=== PATIENT | female | born 1950 | race Caucasian/White ===

== ENCOUNTER 2019-12-14 11:00 | Outpatient (RCR) | payer MEDICARE, SELFPAY ==
--- NOTE | 2019-12-14 12:47 | MHC.PT.DC ---
[facility] [place] Office [place] Office [place] Office [address] 140 [facility] [phone] F: [phone] F: [phone] F: [phone] F: [phone] Physical Therapy Discharge Report Diagnosis: M22.2x1 patellofemoral pain syndrome of right knee Z48.89 aftercare following surgery for injury and trauma Date of Surgery: 10/12/2019 Date of Evaluation: 11/08/19 Date of Discharge: 12/14/19 Treatments to Date: 10 Cancellations to Date: 0 No Shows to Date: 0 Discharge Status: Achieved Goals Improved Function Independent with HEP Discharge Summary: The patient has overall restored her knee AROM to full. She has reached all goals established at the initial evaluation. She is independent and compliant with her home exercise program. For these reasons, she is discharged from this physical therapy plan of care to her home exercise program. Electronically signed by: Liseth Pedraza PT, DPT Please sign and return to therapist. Thank you for your referral.
== END 2019-12-14 12:47 | disposition other institution (70) ==
LOC: HO.PT 11:00
PROVIDERS: PCP Pediatrics; Visit Provider Orthopaedic Surgery
DX: M22.2X1 Patellofemoral disorders, right knee (principal)
CPT/HCPCS: 97110; 97112; 97530

== ENCOUNTER 2020-02-12 08:24 | Day surgery (SDC) | payer OTHER, SELFPAY ==
--- NOTE | 2020-02-09 09:44 | HO.ANESPROP2 ---
Documented by User: Isabelle Velázquez 02/12/20 10:53 HPI - Anesthesia Eval Consult details Narrative: 70yo F for Colonoscopy PMFSH Past Medical History Medical History Anxiety Asthma Depression History of diverticulitis HTN (hypertension) Osteopenia Surgical History Surgical History (Updated 02/12/20 @ 08:48 by Bre Conner, RN) History of carpal tunnel release of both wrists History of colon resection Hx of cataract extraction Hx of colonoscopy Hx of right knee surgery S/P right knee arthroscopy Social History Social History Smoking Status: Never smoker Use of substances other than those prescribed or required for medical reasons: No Advance Directives: No Advance Directives Information Provided: Yes Meds Allergies Allergy/AdvReac Type Severity Reaction Status Date / Time lisinopril [LISINOPRIL] Allergy Severe ANGIOEDEMA, Verified 02/12/20 09:01 anaphylaxis, swelling in mouth and face Home Medications Medication Instructions Recorded Confirmed Type acetaminophen [Arthritis Pain 1 tab PO Q8H PRN 02/06/20 02/06/20 History Reliever] albuterol sulfate 3 ml INHALATION TID PRN 02/06/20 02/06/20 History albuterol sulfate [ProAir HFA] 2 puff PO Q4-6H PRN 02/06/20 02/06/20 History amlodipine 1 tab PO DAILY 02/06/20 02/06/20 History aspirin 1 tab PO DAILY 02/06/20 02/12/20 History chlorthalidone 1 tab PO DAILY 02/06/20 02/12/20 History citalopram 1 tab PO QAM 02/06/20 02/06/20 History clonazepam 1 tab PO BEDTIME PRN 02/06/20 02/06/20 History fluticasone propionate [Flovent 1 puff PO BID 02/06/20 02/06/20 History HFA] montelukast 1 tab PO BEDTIME 02/06/20 02/06/20 History Exam Exam Date and Time: February 09, 2020 0944 Assessment and Plan Assessment Anesthesia Assessment: Chart Reviewed Documented by User: Kandis Vee 02/12/20 09:17 [facility] Past Medical History Medical History Anxiety Asthma Depression History of diverticulitis HTN (hypertension) Osteopenia Family History Family history of problems with anesthesia: No Surgical History Surgical History (Updated 02/12/20 @ 08:48 by Bre Conner RN) History of carpal tunnel release of both wrists History of colon resection Hx of cataract extraction Hx of colonoscopy Hx of right knee surgery S/P right knee arthroscopy History of Problems with Anesthesia: No Social History Social History Smoking Status: Never smoker Use of substances other than those prescribed or required for medical reasons: No Advance Directives: No Advance Directives Information Provided: Yes Meds Allergies Allergy/AdvReac Type Severity Reaction Status Date / Time lisinopril [LISINOPRIL] Allergy Severe ANGIOEDEMA, Verified 02/12/20 09:01 anaphylaxis, swelling in mouth and face Home Medications Medication Instructions Recorded Confirmed Type acetaminophen [Arthritis Pain 1 tab PO Q8H PRN 02/06/20 02/06/20 History Reliever] albuterol sulfate 3 ml INHALATION TID PRN 02/06/20 02/06/20 History albuterol sulfate [ProAir HFA] 2 puff PO Q4-6H PRN 02/06/20 02/06/20 History amlodipine 1 tab PO DAILY 02/06/20 02/06/20 History aspirin 1 tab PO DAILY 02/06/20 02/12/20 History chlorthalidone 1 tab PO DAILY 02/06/20 02/12/20 History citalopram 1 tab PO QAM 02/06/20 02/06/20 History clonazepam 1 tab PO BEDTIME PRN 02/06/20 02/06/20 History fluticasone propionate [Flovent 1 puff PO BID 02/06/20 02/06/20 History HFA] montelukast 1 tab PO BEDTIME 02/06/20 02/06/20 History Exam Height,Weight and Vital Signs: Vital Signs Temp Pulse Resp BP Pulse Ox 02/12/20 08:50 96.3 F L 73 16 130/79 99 Airway Mallampati Class: II TM Dist: >3cm Neck ROM: Full Heart: RRR Lungs: CTAB Assessment and Plan Assessment Anesthesia Assessment: Anesthesia Plan Discussed and Chart Reviewed Final Anesthetic Review NPO: Yes ASA Class: II Final Preanesthetic Review: No Changes in Pt Med Stat, Meds/Allgs Chart Reviewed, Consent Obtained/Reviewed and Anes Risks/Benef Reviewed Patient Risk: Low Procedure Risk: Low Assessment/Block/Sedation in SS: Assess/Block/Sedation-SS Anesthetic Plan Anesthetic Plan: MAC: Disposition: Standard PACU
[2020-02-12 08:50] VITALS: BP 130/79; PULSE 73; RESP 16; TEMP 35.7; O2SAT 99; BMI 31.9
[2020-02-12] MEDS: Lactated Ringers 1,000 ML 100 ML IVCONT (09:00)
[2020-02-12 10:06] VITALS: BP 98/62; PULSE 63; RESP 15; TEMP 36.1; O2SAT 97
--- NOTE | 2020-02-12 10:17 | PM.OP ---
Brief Operative Note Date of Service: 02/12/20 Pre-op diagnosis: Screening Post-op diagnosis: other (Diverticulosis, Internal hemorrhoids) Procedure: Colonoscopy to the cecum Surgeon: Aly Renae Anesthesia: MAC Estimated blood loss (mL): 0 Pathology: none sent Condition: stable Disposition: PACU
[2020-02-12 10:21] VITALS: BP 101/71; PULSE 63; RESP 16; TEMP 36.1; O2SAT 100
[2020-02-12 10:29] VITALS: BP 117/76; PULSE 60; RESP 16; O2SAT 99
--- NOTE | 2020-02-12 10:53 | HO.POSTANES ---
Post Anesthesia Evaluation Post Anesthesia Evaluation Vital Signs: Vital Signs Temp Pulse Resp BP Pulse Ox 02/12/20 10:29 97 F 60 16 117/76 99 02/12/20 10:21 97 F 63 16 101/71 100 02/12/20 10:06 97.0 F 63 15 98/62 97 02/12/20 08:50 96.3 F L 73 16 130/79 99 Anesthesia: Monitored Mental Status: Awake Pain Control: Satisfactory Nausea/Vomiting: None Hydration: Adequate Anesthesia-Related Issues: No Anes. Related Issues
--- NOTE | 2020-02-12 20:03 | OP_ITS ---
SURGEON: Aly Renae MD INDICATIONS: The patient presents for followup of colorectal cancer screening and a prior history of a tubular adenoma. Full consent has been obtained from her for this, including risks of bleeding and perforation. PREOPERATIVE DIAGNOSIS: POSTOPERATIVE DIAGNOSIS: PROCEDURE PERFORMED: Colonoscopy to the cecum. ESTIMATED BLOOD LOSS: COMPLICATIONS: ANESTHESIA: Monitored anesthesia care. ASSISTANTS: SPECIMENS: PREOPERATIVE DIAGNOSES: Colorectal cancer screening and personal history of tubular adenoma of the colon. POSTOPERATIVE DIAGNOSES: Colorectal cancer screening, personal history of tubular adenoma of the colon, diverticulosis and internal hemorrhoids. DESCRIPTION OF PROCEDURE: The patient was placed in the left lateral decubitus position. The digital rectal exam revealed no abnormalities. The Olympus video pediatric colonoscope was entered into the rectum and advanced easily to the cecum. Once in the cecum, I did identify normal-appearing cecal pouch with appendiceal orifice and a normal-appearing ileocecal valve. There was transillumination of light deep in the right lower quadrant. The entire cecum and ileocecal valve appeared normal. The scope was then slowly withdrawn assessing all mucosal surfaces carefully. Preparation was excellent. I did not visualize any sign of polyps, colitis, or angiodysplasia. There was scattered diverticula in the ascending colon and descending colon. The anastomosis from her previous sigmoid resection was seen at approximately 20 cm and appeared normal. In the rectum, the scope was retroflexed visualizing internal hemorrhoids, but no other pathology. The rectal mucosa appeared normal. The scope was straightened and withdrawn from the patient. She tolerated the procedure well and was returned to recovery area in stable condition. IMPRESSION: 1. Diverticulosis. 2. Internal hemorrhoids. PLAN: Given the patient's negative exam, I would recommend a followup colonoscopy in 10 years for further screening given the fact that her tubular adenoma was removed well over 10 years ago. She will otherwise see me on a p.r.n. basis. She was advised that she could resume her aspirin today. MD KELSIE Llanos/RINA / [phone]
== END 2020-02-12 10:50 | disposition home or self-care (01) ==
PROVIDERS: PCP Pediatrics; Visit Provider Internal Medicine
PROC: 0DJD8ZZ Inspection of Lower Intestinal Tract, Via Natural or Artificial Opening Endoscopic (ICD-10-PCS; CPT 45378; principal; 2020-02-12 09:30)
DX: Z12.11 Encounter for screening for malignant neoplasm of colon (principal); K57.30 Diverticulosis of large intestine without perforation or abscess without bleeding; K64.8 Other hemorrhoids; Z86.010 Personal history of colon polyps; Z98.0 Intestinal bypass and anastomosis status
CPT/HCPCS: 45378

== ENCOUNTER 2020-07-09 13:25 | Emergency (ER) | payer OTHER, SELFPAY ==
--- NOTE | 2020-07-09 | ECG_ITS ---
Test Reason : CP Blood Pressure : / mmHG Vent. Rate : 067 BPM Atrial Rate : 067 BPM P-R Int : 184 ms QRS Dur : 092 ms QT Int : 460 ms P-R-T Axes : 038 020 035 degrees QTc Int : 486 ms Normal sinus rhythm Prolonged QTc Abnormal ECG When compared to the previous EKG of QT has lengthened Referred By: Generic ED Physician Electronically Signed By:Reilly Back
--- NOTE | ~2020-07-09 | XR_ITS ---
EXAMINATION: XR CHEST CLINICAL INFORMATION: Chest pain COMPARISON: Previous chest x-ray most recent October 2017 TECHNIQUE: Frontal view of the chest was obtained. FINDINGS: The cardiac and mediastinal contours are normal. The lungs are clear. There is no pleural effusion or pneumothorax. There are degenerative changes of the spine. XR/XR chest 1V IMPRESSION: No evidence for acute disease in the chest.
[2020-07-09 13:36] VITALS: BP 129/77; PULSE 70; RESP 18; TEMP 36.6; O2SAT 98; BMI 31.6
[2020-07-09 14:00] LABS: Glucose Urine UA NEG (NEG); Leukocyte Esterase Urine NEG (NEG); Nitrite Urine NEG (NEG); Specific Gravity - Urine 1.025 (1.005-1.025); Urine Blood 1+ (NEG); Urine Ketones NEG (NEG); Urine Protein NEG (NEG-TRACE)
[2020-07-09 14:08] LABS: Appearance Urine CLEAR; Color Urine YELLOW
[2020-07-09 14:26] LABS: Mucus Urine 1+ /LPF; Squamous Epithelial Cell Urine 1+ /LPF
--- NOTE | 2020-07-09 14:57 | ED.CHESTPAIN ---
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 Mode of arrival: ambulatory Limitations: no limitations History of Present Illness HPI narrative: 70 yo female with hx of HTN, asthm, anxiety, GERD here with 1 week of chest pain reproduceable with some associated nausea, dyspnea, feels she is very worried about her family MD complaint: chest pain Onset (ago): week(s) (1) Timing of current episode: constant Onset: during rest and during exertion Pain location: substernal Pain radiation: none Severity: moderate Quality: aching Relieving factors: nothing Exacerbating factors: exertion and palpation Associated symptoms: nausea and dyspnea Treatment prior to arrival: none Related Data Home Medications Medication Instructions Recorded Confirmed acetaminophen [Arthritis Pain 1 tab PO Q8H PRN 02/06/20 02/06/20 Reliever] albuterol sulfate 3 ml INHALATION TID PRN 02/06/20 02/06/20 albuterol sulfate [ProAir HFA] 2 puff PO Q4-6H PRN 02/06/20 02/06/20 amlodipine 1 tab PO DAILY 02/06/20 02/06/20 aspirin 1 tab PO DAILY 02/06/20 02/12/20 chlorthalidone 1 tab PO DAILY 02/06/20 02/12/20 citalopram 1 tab PO QAM 02/06/20 02/06/20 clonazepam 1 tab PO BEDTIME PRN 02/06/20 02/06/20 fluticasone propionate [Flovent 1 puff PO BID 02/06/20 02/06/20 HFA] montelukast 1 tab PO BEDTIME 02/06/20 02/06/20 Previous Rx's Medication Instructions Recorded cyclobenzaprine 10 mg PO TID PRN #14 tab 07/09/20 lidocaine 1 patch TOPICAL DAILY PRN #10 ea 07/09/20 Allergies Allergy/AdvReac Type Severity Reaction Status Date / Time lisinopril [LISINOPRIL] Allergy Severe ANGIOEDEMA, Verified 02/12/20 09:01 anaphylaxis, swelling in mouth and face Review of Systems Review of Systems: Constitutional : No Weight loss, No Fever, No Chills ENT/Mouth : No sore throat, No Rhinorrhea Eyes: No Eye Pain, No Swelling Cardiovascular : pos Chest Pain, pos SOB, pos Dyspnea on Exertion, No Orthopnea, No Edema, No Palpitations Respiratory : No Cough, No Sputum Gastrointestinal : pos Nausea, No Vomiting, No Diarrhea, No abdominal Pain, No Hematochezia, No Melena Genitourinary : No Dysuria, No Urinary Frequency Musculoskeletal : No joint pain, No Myalgias, No Joint Swelling Skin : No Skin Lesions, No rash Neuro : No Weakness, No Numbness, No Dizziness, No Headache Psych : pos Anxiety/Panic, No Depression Heme/Lymph: No Bruising, No Lymphadenopathy Endocrine : No Polyuria, No Polydipsia All other systems reviewed and are negative [facility] Past Medical History Attestation statement: The following information was validated with the patient. Medical History Anxiety Asthma Depression History of diverticulitis HTN (hypertension) Osteopenia Surgical History History of carpal tunnel release of both wrists History of colon resection Hx of cataract extraction Hx of colonoscopy Hx of right knee surgery S/P right knee arthroscopy Social History Social History Smoking Status: Never smoker Advance Directives: No Advance Directives Information Provided: Yes Physical Exam Vital Signs: Vital Signs: Last Vital Signs Temp 98 F 07/09/20 13:36 Pulse 59 07/09/20 15:37 Resp 16 07/09/20 15:37 BP 123/62 07/09/20 15:37 Pulse Ox 99 07/09/20 15:37 Body Mass Index 31.6 Appearance: Alert. Oriented X3. No acute distress. Eyes: Pupils equal, round and reactive to light. ENT: Pharynx normal. Neck: Normal inspection. Neck supple. CVS: Normal heart rate and rhythm. Pulses normal. Chest: marked L sided chest wall ttp reproduces pain Respiratory: No respiratory distress. Breath sounds normal. Abdomen: Soft and nontender. Skin: Skin warm and dry. Normal skin color. Normal skin turgor. Extremities: No lower extremity edema. No calf ttp Neuro: Oriented X 3. No motor deficit. No sensory deficit. Course Course Course Narrative: negative troponin, K likely low from chlorthalidone will replete then DC home suspect chest wall pain at this time MDM - Chest Pain MDM Narrative Medical decision making narrative: 70 yo female with hx of HTN, asthm, anxiety, GERD here with 1 week of chest pain reproduceable with some associated nausea, dyspnea, feels she is very worried about her family not tachycardic not pleuritic no signs of DVT, no hypoxia or tachycardia to suggest PE, seems atypical for ACS very reproduceable at this time labs, EKG, CXR, troponin x1, dispo per results and findings. Lab Data Result diagrams: 07/09/20 15:36 07/09/20 15:36 Labs: Lab Results 07/09/20 07/09/20 07/09/20 Range/Units 13:44 15:29 15:36 WBC (4.8-10.8) X10*3/uL RBC (4.20-5.50) X10*6/uL Hgb (12.0-16.0) g/dl Hct (37-47) % MCV (80-98) fL MCH (27.0-33.0) pg MCHC (31.0-35.0) g/dl RDW (11.0-16.0) % Plt Count (160-400) X10*3/uL MPV (9.4-12.3) fL Immature Gran % (Auto) (0.0-0.4) % Neut % (Auto) (45-73) % Lymph % (Auto) (20-40) % [place] % (Auto) (2-11) % Eos % (Auto) (0-4) % Baso % (Auto) (0-2) % Lymph # (Auto) (1.2-4.9) X10*3/uL [place] # (Auto) (0.1-1.2) X10*3/uL Eos # (Auto) (0.0-0.4) X10*3/uL Baso # (Auto) (0.0-0.2) X10*3/uL Abs Immat Gran (auto) (0.00-0.03) X10*3/uL Absolute Neuts (auto) (2.0-8.3) X10*3/uL Absolute Nucleated RBC (0.0-0.012) X10*3/uL Nucleated RBC % (auto) (0.0-0.2) /100WBC Hold Blue Top Sodium 139 (135-145) mmol/L Potassium 2.8 L (3.3-5.1) mmol/L Chloride 99 (96-108) mmol/L Carbon Dioxide 32 H (22-29) mmol/L Anion Gap 11 L (12-20) BUN 26 H (9-16) mg/dL Creatinine 0.75 (0.5-1.4) mg/dL Estim Creat Clear Calc 77.8 Estimated GFR > 60 Random Glucose 95 (60-115) mg/dL Calcium 9.1 (8.4-10.2) mg/dL Magnesium (1.6-2.6) mg/dL Total Bilirubin (0.0-1.0) mg/dL Direct Bilirubin (0.0-0.5) mg/dL AST (5-31) U/L ALT (0-31) U/L Alkaline Phosphatase (39-117) U/L Total Creatine Kinase (26-140) U/L Troponin I High Sens (<3.5-17.0) ng/L Total Protein (6.5-8.0) g/dL Albumin (3.5-5.0) g/dL Lipase (8-78) U/L Urine Color YELLOW Urine Appearance CLEAR Urine pH 6.0 (5.0-8.0) Ur Specific [place] 1.025 (1.005-1.025) Urine Protein NEG (NEG-TRACE) MG/DL Urine Glucose (UA) NEG (NEG) MG/DL Urine Ketones NEG (NEG) MG/DL Urine Blood 1+ H (NEG) Urine Nitrite NEG (NEG) Ur Leukocyte Esterase NEG (NEG) Urine RBC 5-9 H (0) /HPF Urine WBC 1-4 (0-4) /HPF Ur Squamous Epith Cells 1+ /LPF Urine Bacteria NONE /LPF Urine Mucus 1+ /LPF COVID-19 (ALEXANDRE) Negative (Negative) COVID-19 Clin Com See Note 07/09/20 07/09/20 07/09/20 Range/Units 15:36 15:36 15:36 WBC 7.9 (4.8-10.8) X10*3/uL RBC 4.56 (4.20-5.50) X10*6/uL Hgb 13.4 (12.0-16.0) g/dl Hct 40.2 (37-47) % MCV 88.2 (80-98) fL MCH 29.4 (27.0-33.0) pg MCHC 33.3 (31.0-35.0) g/dl RDW 12.4 (11.0-16.0) % Plt Count 256 (160-400) X10*3/uL MPV 10.3 (9.4-12.3) fL Immature Gran % (Auto) 0.3 (0.0-0.4) % Neut % (Auto) 49.5 (45-73) % Lymph % (Auto) 35.7 (20-40) % [place] % (Auto) 9.2 (2-11) % Eos % (Auto) 4.8 H (0-4) % Baso % (Auto) 0.5 (0-2) % Lymph # (Auto) 2.8 (1.2-4.9) X10*3/uL [place] # (Auto) 0.7 (0.1-1.2) X10*3/uL Eos # (Auto) 0.4 (0.0-0.4) X10*3/uL Baso # (Auto) 0.0 (0.0-0.2) X10*3/uL Abs Immat Gran (auto) 0.02 (0.00-0.03) X10*3/uL Absolute Neuts (auto) 3.9 (2.0-8.3) X10*3/uL Absolute Nucleated RBC 0.000 (0.0-0.012) X10*3/uL Nucleated RBC % (auto) 0.0 (0.0-0.2) /100WBC Hold Blue Top SEE NOTE Sodium (135-145) mmol/L Potassium (3.3-5.1) mmol/L Chloride (96-108) mmol/L Carbon Dioxide (22-29) mmol/L Anion Gap (12-20) BUN (9-16) mg/dL Creatinine (0.5-1.4) mg/dL Estim Creat Clear Calc Estimated GFR Random Glucose (60-115) mg/dL Calcium (8.4-10.2) mg/dL Magnesium 2.0 (1.6-2.6) mg/dL Total Bilirubin 0.5 (0.0-1.0) mg/dL Direct Bilirubin 0.2 (0.0-0.5) mg/dL AST 14 (5-31) U/L ALT 15 (0-31) U/L Alkaline Phosphatase 73 (39-117) U/L Total Creatine Kinase 65 (26-140) U/L Troponin I High Sens (<3.5-17.0) ng/L Total Protein 7.4 (6.5-8.0) g/dL Albumin 3.7 (3.5-5.0) g/dL Lipase 16 (8-78) U/L Urine Color Urine Appearance Urine pH (5.0-8.0) Ur Specific [place] (1.005-1.025) Urine Protein (NEG-TRACE) MG/DL Urine Glucose (UA) (NEG) MG/DL Urine Ketones (NEG) MG/DL Urine Blood (NEG) Urine Nitrite (NEG) Ur Leukocyte Esterase (NEG) Urine RBC (0) /HPF Urine WBC (0-4) /HPF Ur Squamous Epith Cells /LPF Urine Bacteria /LPF Urine Mucus /LPF COVID-19 (ALEX[facility]RE) (Negative) COVID-19 Clin Com 07/09/20 Range/Units 15:36 WBC (4.8-10.8) X10*3/uL RBC (4.20-5.50) X10*6/uL Hgb (12.0-16.0) g/dl Hct (37-47) % MCV (80-98) fL MCH (27.0-33.0) pg MCHC (31.0-35.0) g/dl RDW (11.0-16.0) % Plt Count (160-400) X10*3/uL MPV (9.4-12.3) fL Immature Gran % (Auto) (0.0-0.4) % Neut % (Auto) (45-73) % Lymph % (Auto) (20-40) % [place] % (Auto) (2-11) % Eos % (Auto) (0-4) % Baso % (Auto) (0-2) % Lymph # (Auto) (1.2-4.9) X10*3/uL [place] # (Auto) (0.1-1.2) X10*3/uL Eos # (Auto) (0.0-0.4) X10*3/uL Baso # (Auto) (0.0-0.2) X10*3/uL Abs Immat Gran (auto) (0.00-0.03) X10*3/uL Absolute Neuts (auto) (2.0-8.3) X10*3/uL Absolute Nucleated RBC (0.0-0.012) X10*3/uL Nucleated RBC % (auto) (0.0-0.2) /100WBC Hold Blue Top Sodium (135-145) mmol/L Potassium (3.3-5.1) mmol/L Chloride (96-108) mmol/L Carbon Dioxide (22-29) mmol/L Anion Gap (12-20) BUN (9-16) mg/dL Creatinine (0.5-1.4) mg/dL Estim Creat Clear Calc Estimated GFR Random Glucose (60-115) mg/dL Calcium (8.4-10.2) mg/dL Magnesium (1.6-2.6) mg/dL Total Bilirubin (0.0-1.0) mg/dL Direct Bilirubin (0.0-0.5) mg/dL AST (5-31) U/L ALT (0-31) U/L Alkaline Phosphatase (39-117) U/L Total Creatine Kinase (26-140) U/L Troponin I High Sens < 3.5 (<3.5-17.0) ng/L Total Protein (6.5-8.0) g/dL Albumin (3.5-5.0) g/dL Lipase (8-78) U/L Urine Color Urine Appearance Urine pH (5.0-8.0) Ur Specific [place] (1.005-1.025) Urine Protein (NEG-TRACE) MG/DL Urine Glucose (UA) (NEG) MG/DL Urine Ketones (NEG) MG/DL Urine Blood (NEG) Urine Nitrite (NEG) Ur Leukocyte Esterase (NEG) Urine RBC (0) /HPF Urine WBC (0-4) /HPF Ur Squamous Epith Cells /LPF Urine Bacteria /LPF Urine Mucus /LPF COVID-19 ([facility]RE) (Negative) COVID-19 Clin Com ECG Data ECG #1: Attestation: I personally reviewed and interpreted this ECG as follows: ECG interpretation date: 07/09/20 ECG interpretation time: 15:49 Interpretation: Rate: 67 Rhythm: NSR [place]: normal Normal P waves. Normal [place]. Normal QRS complex. ST T wave : nonspecific, no KARIE qTC: prolonged prior studies: no sig change from 2018 The study has been interpreted contemporaneously by me. . Discharge Plan Discharge Clinical Impression: Atypical chest pain, Acute hypokalemia Patient Disposition: Home, Self-Care Instructions: Chest Pain (ED), Hypokalemia (ED) Additional Instructions: return to ED for any worsening symptoms or concerns HAVE YOUR DOCTOR RECHECK POTASSIUM IN 2 DAYS Prescriptions: New cyclobenzaprine 10 mg tablet 10 mg PO TID PRN (Reason: muscle spasm) Qty: 14 RF: 0 lidocaine 4 % adhesive patch,medicated 1 patch topical DAILY PRN (Reason: pain) Qty: 10 RF: 0 No Action albuterol sulfate 2.5 mg /3 mL (0.083 %) solution for nebulization 3 ml inhalation TID PRN (Reason: muscle spasm) RF: 0 citalopram 40 mg tablet 1 tab PO QAM RF: 0 clonazepam 1 mg tablet 1 tab PO BEDTIME PRN (Reason: Insomnia) RF: 0 chlorthalidone 25 mg tablet 1 tab PO DAILY RF: 0 amlodipine 5 mg tablet 1 tab PO DAILY RF: 0 aspirin 81 mg tablet,delayed release (DR/EC) 1 tab PO DAILY RF: 0 acetaminophen [Arthritis Pain Reliever] 650 mg tablet extended release 1 tab PO Q8H PRN (Reason: Pain) RF: 0 montelukast 10 mg tablet 1 tab PO BEDTIME RF: 0 albuterol sulfate [ProAir HFA] 90 mcg/actuation HFA aerosol inhaler 2 puff PO Q4-6H PRN (Reason: Shortness Of Breath Or Wheezing) RF: 0 Flovent HFA 110 mcg/actuation HFA aerosol inhaler 1 puff PO BID RF: 0 Referrals: Cordelia Diane MD [Primary Care Provider] - 2 days Print Language: Yi
[2020-07-09 15:37] VITALS: BP 123/62; PULSE 59; RESP 16; O2SAT 99
[2020-07-09] MEDS: LORazepam 1 MG TABLET PO (15:41)
[2020-07-09 15:45] LABS: MANUAL DIFF FLAG NO
[2020-07-09 15:47] LABS: Basophils Percent Auto 0.5 % (0-2); Eosinophils Absolute Auto 0.4 X10*3/uL (0.0-0.4); Eosinophils Percent Auto 4.8 % (0-4); Hematocrit 40.2 % (37-47); Hemoglobin 13.4 g/dl (12.0-16.0); Imm Gran Abs Auto 0.02 X10*3/uL (0.00-0.03); Imm Gran Pct Auto 0.3 % (0.0-0.4); Lymphocytes Absolute Auto 2.8 X10*3/uL (1.2-4.9); Lymphocytes Percent Auto 35.7 % (20-40); Mean Corpuscular HGB Conc 33.3 g/dl (31.0-35.0); Mean Corpuscular Hemoglobin 29.4 pg (27.0-33.0); Mean Corpuscular Volume 88.2 fL (80-98); Mean Platelet Volume 10.3 fL (9.4-12.3); Monocytes Absolute Auto 0.7 X10*3/uL (0.1-1.2); Monocytes Percent Auto 9.2 % (2-11); Neutrophils Absolute Auto 3.9 X10*3/uL (2.0-8.3); Neutrophils Percent Auto 49.5 % (45-73); Platelet Count 256 X10*3/uL (160-400); Red Blood Count 4.56 X10*6/uL (4.20-5.50); Red Cell Distribution Width 12.4 % (11.0-16.0); White Blood Count 7.9 X10*3/uL (4.8-10.8)
[2020-07-09 16:05] LABS: COVID-19 Test Negative (Negative); IDNOW Serial# 9DD0AD1C
[2020-07-09 16:15] LABS: Alanine Aminotransferase 15 U/L (0-31); Albumin Level 3.7 g/dL (3.5-5.0); Alkaline Phosphatase 73 U/L (39-117); Aspartate Amino Transferase 14 U/L (5-31); Bilirubin Direct 0.2 mg/dL (0.0-0.5); Bilirubin Total 0.5 mg/dL (0.0-1.0); Lipase 16 U/L (8-78); Total Protein 7.4 g/dL (6.5-8.0)
[2020-07-09 16:16] LABS: Blood Urea Nitrogen 26 mg/dL (9-16); Calcium 9.1 mg/dL (8.4-10.2); Creatinine Clr Calc Pharmacy 77.8; Estimated Glomerular Filt Rate > 60; Glucose Random 95 mg/dL (60-115)
[2020-07-09 16:17] LABS: Troponin-I High Sensitivity < 3.5 ng/L (<3.5-17.0)
[2020-07-09 16:25] LABS: Anion Gap 11 (12-20); Carbon Dioxide 32 mmol/L (22-29); Chloride 99 mmol/L (96-108); Potassium 2.8 mmol/L (3.3-5.1); Sodium 139 mmol/L (135-145)
[2020-07-09] MEDS: Potassium Chloride ER 20 MEQ TAB.ER.PRT 40 MEQ PO (16:57)
[2020-07-09] MEDS: Potassium Chloride/H20 10 MEQ/100 ML PIGGYBACK 100 MEQ IV ×2 (16:57→18:45)
[2020-07-09 16:58] VITALS: PULSE 67
[2020-07-09 18:42] VITALS: BP 118/78; PULSE 64; RESP 16; O2SAT 97
--- NOTE | 2020-07-09 19:23 | PC.NURSE ---
Pt aaox4, Trinidadian speaking primarily, resting on stretcher in NAD. Pt breathing with ease on RA, VSS. Pt requesting to speak with provider regarding explanation for hypokalemia. pt IV potassium currently infusing, pt tolerating well. pt aware and agreeable to plan for discharge after K has infused. Pt stretcher is in lowest locked position, rails raised, call aguirre within reach.
== END 2020-07-09 20:44 | disposition home or self-care (01) ==
PROVIDERS: Emergency Provider Emergency Medicine; PCP Pediatrics
DX: R07.89 Other chest pain (principal); E87.6 Hypokalemia; I10 Essential (primary) hypertension; J45.909 Unspecified asthma, uncomplicated; F41.9 Anxiety disorder, unspecified; K21.9 Gastro-esophageal reflux disease without esophagitis; Z79.82 Long term (current) use of aspirin; Z79.51 Long term (current) use of inhaled steroids; Z79.899 Other long term (current) drug therapy
CPT/HCPCS: 36415; 71045; 80048; 80076; 81001; 81003; 82550; 83690; 83735; 84484; 85025; 87635; 93005; 96365; 96366; 99284; 99285

== ENCOUNTER 2020-09-17 12:27 | Outpatient (REF) | payer OTHER, SELFPAY ==
--- NOTE | ~2020-09-17 | XR_ITS ---
EXAMINATION: AP BILATERAL KNEES, STANDING XR RIGHT KNEE XR LEFT KNEE CLINICAL INFORMATION: Pain and bilateral knee. COMPARISON: None TECHNIQUE: AP bilateral knees standing. 2 views each knee. FINDINGS: AP bilateral Knee Standing: There is reduction in the medial compartment joint space is both knees. The lateral compartment joint space is preserved. No loose bodies, bony erosive changes or soft tissue swelling seen. Right Knee: There is mild reduction in patellofemoral compartment joint space with suprapatellar joint effusion. No visible acute fracture, dislocation or lytic process seen. Left Knee: There is mild reduction in the patellofemoral compartment with peripatellar spurring. There is minimal suprapatellar joint effusion. No loose body seen. XR/XR knee standing BI IMPRESSION: Mild degenerative changes medial and patellofemoral compartments with minimal suprapatellar joint effusion. No visible acute fracture or dislocation seen.
--- NOTE | ~2020-09-17 | XR_ITS ---
EXAMINATION: AP BILATERAL KNEES, STANDING XR RIGHT KNEE XR LEFT KNEE CLINICAL INFORMATION: Pain and bilateral knee. COMPARISON: None TECHNIQUE: AP bilateral knees standing. 2 views each knee. FINDINGS: AP bilateral Knee Standing: There is reduction in the medial compartment joint space is both knees. The lateral compartment joint space is preserved. No loose bodies, bony erosive changes or soft tissue swelling seen. Right Knee: There is mild reduction in patellofemoral compartment joint space with suprapatellar joint effusion. No visible acute fracture, dislocation or lytic process seen. Left Knee: There is mild reduction in the patellofemoral compartment with peripatellar spurring. There is minimal suprapatellar joint effusion. No loose body seen. XR/XR knee LT 2V IMPRESSION: Mild degenerative changes medial and patellofemoral compartments with minimal suprapatellar joint effusion. No visible acute fracture or dislocation seen.
--- NOTE | ~2020-09-17 | XR_ITS ---
EXAMINATION: AP BILATERAL KNEES, STANDING XR RIGHT KNEE XR LEFT KNEE CLINICAL INFORMATION: Pain and bilateral knee. COMPARISON: None TECHNIQUE: AP bilateral knees standing. 2 views each knee. FINDINGS: AP bilateral Knee Standing: There is reduction in the medial compartment joint space is both knees. The lateral compartment joint space is preserved. No loose bodies, bony erosive changes or soft tissue swelling seen. Right Knee: There is mild reduction in patellofemoral compartment joint space with suprapatellar joint effusion. No visible acute fracture, dislocation or lytic process seen. Left Knee: There is mild reduction in the patellofemoral compartment with peripatellar spurring. There is minimal suprapatellar joint effusion. No loose body seen. XR/XR knee RT 2V IMPRESSION: Mild degenerative changes medial and patellofemoral compartments with minimal suprapatellar joint effusion. No visible acute fracture or dislocation seen.
== END 2020-09-17 12:28 | disposition home or self-care (01) ==
LOC: HO.HOSX 12:27
PROVIDERS: PCP Pediatrics; Visit Provider Orthopaedic Surgery
DX: M17.0 Bilateral primary osteoarthritis of knee (principal); M79.606 Pain in leg, unspecified
CPT/HCPCS: 73560; 73565

== ENCOUNTER → 2020-10-15 10:37 | Outpatient (BNVA) | payer OTHER, SELFPAY | PROVIDERS: PCP Pediatrics; Visit Provider Orthopaedic Surgery ==

== ENCOUNTER 2020-12-11 10:26 | Outpatient (REF) | payer MEDICARE, SELFPAY ==
--- NOTE | ~2020-12-11 | XR_ITS ---
EXAMINATION: XR LUMBOSACRAL SPINE CLINICAL INFORMATION: Lower back pain. COMPARISON: Most recent lumbar spine radiographs dated 08/08/2009. TECHNIQUE: 3 views of the lumbosacral spine. FINDINGS: Mild dextrocurvature of the lumbar spine, unchanged. The lumbar lordosis is maintained. No acute fracture or subluxation. No loss of vertebral body height. Loss of intervertebral disc height with endplate osteophytes within the lower thoracic and upper lumbar spine, increased when compared to the prior examination. No lytic or blastic osseous lesion. Bilateral facet arthropathy at L5-S1. XR/XR lumbar spine 2-3V IMPRESSION: Multilevel degenerative disc disease throughout the visualized lower thoracic spine and upper lumbar spine, slightly progressed. Bilateral facet arthropathy at L5-S1, unchanged.
--- NOTE | ~2020-12-11 | MM_ITS ---
EXAMINATION: MM SCREENING DIGITAL BREAST TOMOSYNTHESIS, BILATERAL CLINICAL INFORMATION: Screening. Asymptomatic. The lifetime risk of breast cancer based on the Tyrer-Cuzick Model is 4%. COMPARISON: Mammography: 09/20/2019, 06/28/2018, 06/17/2017 TECHNIQUE: Digital breast tomosynthesis is performed in both the craniocaudal and mediolateral oblique views along with computer-aided detection (CAD). Synthesized 2D images are generated from the tomosynthesis. FINDINGS: There are scattered areas of fibroglandular density (ACR BI-RADS breast composition Category b). There are no significant masses, abnormal calcifications, or other abnormalities. The axilla and skin contours are unremarkable. No significant changes. MM/MM tomosynthesis screening BI IMPRESSION: No mammographic evidence of malignancy. ASSESSMENT: BI-RADS 1: Negative RECOMMENDATION: Routine annual mammography screening. This patient's information was entered into a reminder system with a target due date for their next mammogram.
== END 2020-12-11 10:27 | disposition home or self-care (01) ==
LOC: HO.MAMMO 10:26
PROVIDERS: PCP Pediatrics; Visit Provider Pediatrics
DX: Z12.31 Encounter for screening mammogram for malignant neoplasm of breast (principal); M54.50 Low back pain, unspecified
CPT/HCPCS: 72100; 77063; 77067

== ENCOUNTER → 2020-12-20 09:34 | Outpatient (BNVA) | payer MEDICARE, SELFPAY | PROVIDERS: PCP Pediatrics; Visit Provider Orthopaedic Surgery | DX: M23.92 Unspecified internal derangement of left knee (principal) | CPT/HCPCS: 20610; 99212; J1100 ==

== ENCOUNTER 2020-12-24 08:15 | Outpatient (REF) | payer MEDICARE, SELFPAY ==
--- NOTE | 2020-12-25 14:51 | MHC.AU.ANO ---
Adult Audiological Evaluation Date of Visit: 12/24/20 Clerical Car Checker Used: Not Applicable Reason for Appointment: Referred for audiologic evaluation due to question of decreased hearing ability. Rosemarie reports her daughter and TELEVISION CAMERA OPERATOR say she talks too loud and has the television volume too loud . Rosemarie notes she hears better from the right ear compared to the left. Does patient feel they have a hearing loss?: Yes If Yes, Which Ear?: Both Ears Has hearing been tested previously?: No Hearing Handicap Inventory: HHIE SCORE: 38 Based on HHIE score, patient has: Severe perceived hearing handicap Ear History: Ear used on the phone: Right Ear History of occupational noise exposure?: No History: History: No Medical History: Medical History: Tubular Adenoma, Osteopenia, Diverticulosis, Asthma, Depression, Hypertension, Carpal Tunnel Syndrome, Microscopic Hematuria, Allergies: Lisinopril Medication List: Celexa, Klonopin, Zolpidem Tartate, Gabapentin, Vitamin D3, Flovent, Albuterol, Amlodipine, Singulair, Chlorthalidone, Aspirin, ProAir Otoscopy: Right Ear: Unremarkable Left Ear: Unremarkable Tympanometry: Tympanometry performed due to: To assess integrity of the middle ear system Right Ear: Normal Middle Ear System (Type A) Left Ear: Normal Middle Ear System (Type A) Otoacoustic Emissions Not performed at today's visit. Hearing Evaluation: Transducer(s) Used: Insert Earphones Bone Conduction Method: Conventional Audiometry Stimuli Used: Pure Tones Right Ear: Description of Hearing: Mild dropping to severe sensorineural hearing loss Left Ear: Description of Hearing: Moderately-severe to profound sensorineural hearing loss Speech Recognition Threshold (SRT): Method Used: Monitored Live Voice Stimuli Used: Spondee Words Right Ear: 35 dB HL Left Ear: 50 dB HL Word Discrimination: Method: Recorded Lists Word Lists Used: NU-6 Right Ear: 84% at 75 dB HL Left Ear: 56% at 90 dB HL Recommendations: * Due to the significant asymmetric hearing loss and speech discrimination, left ear poorer than right, advise medical consultation and further investigation of the asymmetry by an Wood Cabinetmaker. - Trial with binaural amplification is recommended. - If medically cleared for hearing aids, Rosemarie is advised to contact her insurance for a list of hearing aid dispensers covered by the insurance. - Audiological re-evaluation in one year, or sooner if change in hearing is suspected. Will send a reminder card. Diagnosis: Primary Diagnosis: H90.3 Bilateral Sensorineural Hearing Loss Services Performed: Comprehensive Audiological Evaluation (CPT 23711) Tympanometry (CPT 66294) Signature: Provider: Moo Smith, CCC-A
== END 2020-12-24 08:16 | disposition home or self-care (01) ==
LOC: HO.SH 08:15
PROVIDERS: Visit Provider Pediatrics
DX: H90.3 Sensorineural hearing loss, bilateral (principal)
CPT/HCPCS: 92557; 92567

== ENCOUNTER 2021-01-01 13:46 | Outpatient (REF) | payer MEDICARE, SELFPAY ==
--- NOTE | ~2021-01-01 | MR_ITS ---
EXAMINATION: MR KNEE WITHOUT CONTRAST, LEFT CLINICAL INFORMATION: Left knee pain. Arthritis. Fall. Injury on 12/31/2020. Evaluate for internal derangement. COMPARISON: Left knee radiographs dated 09/17/2020 TECHNIQUE: MRI of the knee without contrast was performed using routine sequences on a high-field scanner. FINDINGS: MENISCI: Medial Meniscus: Oblique tibial articular surface tear of the posterior meniscal body extending to the inner margin of the posterior horn. Lateral Meniscus: Intact. LIGAMENTS: Cruciate: Intact. Collateral: Intact. EXTENSOR MECHANISM: Intact. ARTICULAR CARTILAGE/BONE: Patellofemoral Compartment: Patellar median ridge articular cartilage thinning with areas of full-thickness fissuring. Diffuse medial patellar articular cartilage signal heterogeneity and thinning. Tiny marginal osteophytes. Mild underlying subchondral cystic change. Medial Compartment: Diffuse weightbearing articular cartilage signal heterogeneity and surface irregularity with mild underlying subchondral cystic change. Small marginal osteophytes. Focal marrow edema within the medial aspect of the tibial plateau, likely representing an osseous contusion. Lateral Compartment: Posterior nonweightbearing articular cartilage signal heterogeneity. Tiny marginal osteophytes. JOINT FLUID AND BURSAE: Small joint effusion. MR/MR knee LT wo con IMPRESSION: 1. Oblique tibial articular surface tear of the posterior medial meniscal body which extends to the inner margin of the posterior horn. Focal osseous contusion within the underlying medial tibial plateau. 2. Mild patellofemoral and medial compartment as well as more minimal lateral compartment osteoarthritis. 3. Small joint effusion.
== END 2021-01-01 13:47 | disposition home or self-care (01) ==
LOC: HO.MRI 13:46
PROVIDERS: Visit Provider Orthopaedic Surgery
DX: M23.92 Unspecified internal derangement of left knee (principal)
CPT/HCPCS: 73721

== ENCOUNTER → 2021-01-03 10:06 | Outpatient (BNVA) | payer MEDICARE, SELFPAY | PROVIDERS: Visit Provider Nurse Practitioner Family | DX: M48.27 Kissing spine, lumbosacral region (principal); M47.819 Spondylosis without myelopathy or radiculopathy, site unspecified; M53.3 Sacrococcygeal disorders, not elsewhere classified | CPT/HCPCS: 99202 ==

== ENCOUNTER → 2021-01-09 09:11 | Outpatient (BNVA) | payer MEDICARE, SELFPAY | PROVIDERS: PCP Pediatrics; Visit Provider Orthopaedic Surgery | DX: Z01.818 Encounter for other preprocedural examination (principal); S83.242D Other tear of medial meniscus, current injury, left knee, subsequent encounter; M17.10 Unilateral primary osteoarthritis, unspecified knee | CPT/HCPCS: 99212 ==

== ENCOUNTER 2021-01-16 14:25 | Outpatient (REF) | payer MEDICARE, SELFPAY ==
--- NOTE | ~2021-01-16 | MR_ITS ---
EXAMINATION: MR LUMBAR SPINE WITHOUT CONTRAST CLINICAL INFORMATION: Lumbar radiculopathy. COMPARISON: Lumbar spine radiographs from 12/11/2020. Lumbar spine MRI from 03/23/2017. TECHNIQUE: MRI of the lumbar spine was obtained using routine sequences without contrast. FINDINGS: Right convex curvature of the lumbar spine. Minimal degenerative grade 1 anterolisthesis of L5 on S1. Otherwise, normal anatomic alignment. Advanced degenerative disc disease from T11-L3. Mild to moderate degenerative disc disease from L3-S1. Associated mixed Modic type discogenic endplate changes including mild Modic type I discogenic edema from T11-L3. Mild marrow edema within the posterior elements of L5-S1 consistent with degenerative stress reaction. Small Schmorl's nodes at T12-L1 and L1-L2. Otherwise, the vertebral body heights are well-maintained. The conus medullaris terminates at the level of L1. The distal spinal cord is normal in appearance. No significant abnormalities of the paraspinal musculature. There is a 2 cm T2 hyperintense cyst in the interpolar region of the right kidney. Otherwise, limited evaluation of the intra-abdominal structures without significant abnormalities. The abdominal aorta is of normal contour and caliber. AXIAL SPINAL LEVELS: L1-L2: Moderate diffuse disc bulge. There is moderate bilateral facet joint arthropathy. There is moderate bilateral neural foraminal stenosis. There is stenosis of the left subarticular zone with no overt spinal canal stenosis centrally. L2-L3: Moderate diffuse disc bulge. There is moderate bilateral facet joint arthropathy. There is moderate bilateral neural foraminal stenosis. There is narrowing of the subarticular zones with no overt spinal canal stenosis centrally. L3-L4: Mild diffuse disc bulge. There is moderate bilateral facet joint arthropathy. There is mild bilateral neural foraminal stenosis. There is no spinal canal stenosis. L4-L5: Mild diffuse disc bulge with superimposed small central disc protrusion. There is moderate bilateral facet joint arthropathy. There is mild bilateral neural foraminal stenosis. There is no spinal canal stenosis. L5-S1: Moderate diffuse disc bulge. There is severe bilateral facet joint arthropathy. There is moderate right and mild left neural foraminal stenosis. There is no spinal canal stenosis. MR/MR lumbar spine wo con IMPRESSION: Moderate multilevel degenerative spondyloarthropathy of the lumbar spine as described in detail above. Most notably, there are narrowings/stenoses of the subarticular zones at L1-L2 and L2-L3. Moderate neural foraminal stenoses at L1-L2, L2-L3, and L5-S1. No overt spinal canal stenosis centrally. Overall, degenerative changes have mildly progressed compared to 2018, most notably from T12-L3.
== END 2021-01-16 14:26 | disposition home or self-care (01) ==
LOC: HO.MRI 14:25
PROVIDERS: Visit Provider Nurse Practitioner Family
DX: M54.16 Radiculopathy, lumbar region (principal); M53.3 Sacrococcygeal disorders, not elsewhere classified
CPT/HCPCS: 72148

== ENCOUNTER → 2021-03-10 08:17 | Outpatient (BNVA) | payer MEDICARE, SELFPAY | PROVIDERS: Visit Provider Physician Assistant ==

== ENCOUNTER → 2021-05-15 09:57 | Outpatient (BNVA) | payer MEDICARE, SELFPAY | PROVIDERS: Visit Provider Physician Assistant | DX: M17.0 Bilateral primary osteoarthritis of knee (principal); M23.92 Unspecified internal derangement of left knee | CPT/HCPCS: 99212 ==

== ENCOUNTER 2021-05-30 07:40 | Day surgery (SDC) | payer OTHER, SELFPAY ==
[2021-05-26 10:02] VITALS: BMI 37.5
--- NOTE | 2021-05-28 13:59 | HO.ANESPROP2 ---
Documented by User: Isabelle Velázquez NP 05/28/21 14:00 HPI - Anesthesia Eval Consult details Narrative: 71yo F for Left Knee Arthroscopy Last K low at 2.8. Repeat DOS PMFSH Active Problems Active Problems: All Active Problems (Updated 01/09/21 @ 10:08 by Gofdrey Mendoza MD) Primary osteoarthritis of knees, bilateral (Acute) Internal derangement of left knee (Acute) Bilateral lumbar radiculopathy (Acute) Sacroiliac joint pain (Acute) Facet arthropathy, multilevel (Acute) Spondylosis of lumbosacral spine with radiculopathy (Acute) Tear of medial meniscus of left knee (Acute) Past Medical History Medical History Anxiety Asthma Depression History of diverticulitis HTN (hypertension) Osteopenia Family History Family history of problems with anesthesia: No Surgical History Surgical History History of carpal tunnel release of both wrists History of colon resection History of laryngoscopy Hx of cataract extraction Hx of colonoscopy Hx of dilation and curettage Hx of lithotripsy Hx of right knee surgery S/P right knee arthroscopy History of Problems with Anesthesia: No Social History Social History Housing: Apartment Alcohol intake: never Patient Tobacco Use Status: Former Tobacco user Quit Date: Use of substances other than those prescribed or required for medical reasons: No Are you DNR?: No Advance Directives: No Advance Directives Information Provided: Yes Meds Allergies Allergy/AdvReac Type Severity Reaction Status Date / Time lisinopril [LISINOPRIL] Allergy Severe ANGIOEDEMA, Verified 05/15/21 10:04 anaphylaxis, swelling in mouth and face Home Medications Medication Instructions Recorded Confirmed Last Taken Type acetaminophen 650 mg 1 tab PO Q8H PRN 02/06/20 03/06/21 Unknown History tablet,extended release (Arthritis Pain Reliever) albuterol sulfate 3 ml INHALATION TID PRN 02/06/20 03/06/21 Unknown History albuterol sulfate 90 mcg/actuation 2 puff PO Q4-6H PRN 02/06/20 03/06/21 Unknown History aerosol inhaler (ProAir HFA) aspirin 81 mg tablet,delayed 1 tab PO DAILY 02/06/20 03/06/21 02/05/20 History release chlorthalidone 25 mg tablet 1 tab PO DAILY 02/06/20 03/06/21 02/12/20 05:00 History citalopram 40 mg tablet 1 tab PO QAM 02/06/20 03/06/21 05/30/21 History clonazepam 1 mg tablet 1 tab PO BEDTIME PRN 02/06/20 03/06/21 Unknown History fluticasone propionate 110 1 puff PO BID 02/06/20 03/06/21 Unknown History mcg/actuation HFA aerosol inhaler (Flovent HFA) montelukast 10 mg tablet 1 tab PO BEDTIME 02/06/20 03/06/21 Unknown History amlodipine 5 mg tablet 1 tab PO DAILY 03/06/21 05/30/21 History Exam Exam Date and Time: May 28, 2021 1359 Height,Weight and Vital Signs: Height 5 ft 3 in Weight 96.162 kg Assessment and Plan Assessment Anesthesia Assessment: Chart Reviewed Final Anesthetic Review Family History of Problems with Anesthesia: No History of Problems with Anesthesia: No Documented by User: Karen Palumbo MD 05/30/21 11:38 [facility] Past Medical History Medical History Anxiety Asthma Depression History of diverticulitis HTN (hypertension) Osteopenia Surgical History Surgical History History of carpal tunnel release of both wrists History of colon resection History of laryngoscopy Hx of cataract extraction Hx of colonoscopy Hx of dilation and curettage Hx of lithotripsy Hx of right knee surgery S/P right knee arthroscopy Social History Social History Housing: Apartment Alcohol intake: never Patient Tobacco Use Status: Former Tobacco user Quit Date: Use of substances other than those prescribed or required for medical reasons: No Are you DNR?: No Advance Directives: No Advance Directives Information Provided: Yes Meds Allergies Allergy/AdvReac Type Severity Reaction Status Date / Time lisinopril [LISINOPRIL] Allergy Severe ANGIOEDEMA, Verified 05/15/21 10:04 anaphylaxis, swelling in mouth and face Home Medications Medication Instructions Recorded Confirmed Last Taken Type acetaminophen 650 mg 1 tab PO Q8H PRN 02/06/20 03/06/21 Unknown History tablet,extended release (Arthritis Pain Reliever) albuterol sulfate 3 ml INHALATION TID PRN 02/06/20 03/06/21 Unknown History albuterol sulfate 90 mcg/actuation 2 puff PO Q4-6H PRN 02/06/20 03/06/21 Unknown History aerosol inhaler (ProAir HFA) aspirin 81 mg tablet,delayed 1 tab PO DAILY 02/06/20 03/06/21 02/05/20 History release chlorthalidone 25 mg tablet 1 tab PO DAILY 02/06/20 03/06/21 02/12/20 05:00 History citalopram 40 mg tablet 1 tab PO QAM 02/06/20 03/06/21 05/30/21 History clonazepam 1 mg tablet 1 tab PO BEDTIME PRN 02/06/20 03/06/21 Unknown History fluticasone propionate 110 1 puff PO BID 02/06/20 03/06/21 Unknown History mcg/actuation HFA aerosol inhaler (Flovent HFA) montelukast 10 mg tablet 1 tab PO BEDTIME 02/06/20 03/06/21 Unknown History amlodipine 5 mg tablet 1 tab PO DAILY 03/06/21 05/30/21 History Exam Airway Mallampati Class: III TM Dist: >3cm Neck ROM: Full Denture: Upper Loose/Missing/Broken Teeth: Yes, Upper and Lower Heart: RRR Lungs: CTA Assessment and Plan Assessment Anesthesia Assessment: Anesthesia Plan Discussed Final Anesthetic Review NPO: Yes ASA Class: II Final Preanesthetic Review: Meds/Allgs Chart Reviewed, Consent Obtained/Reviewed and Anes Risks/Benef Reviewed Patient Risk: Low Procedure Risk: Low Anesthetic Plan Anesthetic Plan: MAC: Disposition: Standard PACU
[2021-05-30] VITALS (7 sets, daily range): BP systolic 119–159; BP diastolic 60–88; PULSE 60–66; RESP 16–20; TEMP 36.2–36.3; O2SAT 95–97
[2021-05-30 08:21] LABS: Anion Gap 10 (12-20); Blood Urea Nitrogen 29 mg/dL (9-16); Calcium 9.5 mg/dL (8.4-10.2); Carbon Dioxide 30 mmol/L (22-29); Chloride 102 mmol/L (96-108); Creatinine Clr Calc Pharmacy 70.6; Estimated Glomerular Filt Rate > 60; Glucose Fasting 96 mg/dL (60-99); Potassium 4.1 mmol/L (3.3-5.1); Sodium 138 mmol/L (135-145)
[2021-05-30] MEDS: Lactated Ringers 1,000 ML 100 ML IVCONT (08:40)
--- NOTE | 2021-05-30 09:07 | MHC.SHP ---
Pre-Procedural Eval Section A Date of Service: 05/30/21 The patient is an INPATIENT: No Changes since office visit: Yes Patient answered all questions; No Cold of Flu in the past 2 weeks, No New Medical Problems and No Changes in Medication The History & Physical has been completed within 30 days and I have reviewed it.: Yes Section B Chief Complaint: internal derangement of left knee Allergies: Allergies Allergy/AdvReac Type Severity Reaction Status Date / Time lisinopril [LISINOPRIL] Allergy Severe ANGIOEDEMA, Verified 05/15/21 10:04 anaphylaxis, swelling in mouth and face Plan I have reviewed the history and physical and performed a pertinent physical examination on my patient. No changes have occurred unless specified.
[2021-05-30] MEDS: Acetaminophen 325 MG TABLET 650 MG PO (11:20)
--- NOTE | 2021-05-30 12:15 | PM.OP ---
Brief Operative Note Date of Service: 05/30/21 Pre-op diagnosis: left knee MMT Post-op diagnosis: other (Left knee MMT. Left knee arthritis) Procedure: Left knee with partial medial meniscectomy and chondroplasty Surgeon: Godfrey Mendoza MD Anesthesia: GETA and local Was an Client Development Manager used for this Procedure?: No Estimated blood loss (mL): 5 Tourniquet time (min): 12 IV fluids (mL): 500 Pathology: none sent Condition: stable Disposition: PACU
--- NOTE | 2021-05-30 12:19 | P.OP_ITS ---
Operative Note Operative Note Date of Service: 05/30/21 Narrative: Pre-op diagnosis: left knee MMT Post-op diagnosis: other (Left knee MMT. Left knee arthritis) Procedure: Left knee with partial medial meniscectomy and chondroplasty Surgeon: Godfrey Mendoza MD Anesthesia: GETA and local Was an Manager Of Case Management used for this Procedure?: No Estimated blood loss (mL): 5 Tourniquet time (min): 12 IV fluids (mL): 500 Pathology: none sent Condition: stable Disposition: PACU Procedure in detail: Patient was brought to the operating room placed supine on the arthroscopic table and prepped and draped in standard sterile fashion. A time-out was called to identify proper site proper procedure proper surgeon and IV antibiotics per weight were administered. I began by exsanguinating the limb and insufflating tourniquet to 300 mm Hg. I made a standard anterolateral stab incision. The knee was insufflated with water and 30 degree arthroscope was placed. There was grade 2 fibrillations of the patella and G3 changes of the trochlea. The suprapatellar pouch was clean and the gutters were clean. I descended into the medial compartment where I made my medial portal under direct visualization. There was radial tear of the body and posterior horn of the medial meniscus. The root was intact and there was grade 2 changes of the tibial plateau and with G2- 3 changes of the medial femoral condyle. I used a combination of biter shaver and cautery to remove unstable portions of the meniscus. Approximately 40% meniscal volume was removed. Once I was happy with this the ACL was examined and found to be intact and the lateral compartment also was without the need for intervention. I then removed all instrumentation and closed the portals with skin glue. 25 mL of 2% Marcaine with epinephrine was injected into the joint and the surrounding soft tissues. Patient was then placed in sterile dressing extubated brought recovery room stable condition. There were no known complications.
== END 2021-05-30 12:47 | disposition home or self-care (01) ==
PROVIDERS: Nurse Practitioner; Visit Provider Orthopaedic Surgery
PROC: (CPT 29870; principal; 2021-05-30 10:00)
DX: S83.242A Other tear of medial meniscus, current injury, left knee, initial encounter (principal); G89.29 Other chronic pain; M25.562 Pain in left knee; M17.0 Bilateral primary osteoarthritis of knee; I10 Essential (primary) hypertension; J45.909 Unspecified asthma, uncomplicated; Z88.8 Allergy status to other drugs, medicaments and biological substances; X58.XXXA Exposure to other specified factors, initial encounter; Y93.9 Activity, unspecified; Y92.9 Unspecified place or not applicable; Y99.9 Unspecified external cause status
CPT/HCPCS: 29881; 36415; 80048; J0171; J0690; J1100; J1885; J2250; J2405; J3010

== ENCOUNTER → 2021-06-05 10:03 | Outpatient (BNVA) | payer OTHER, SELFPAY | PROVIDERS: PCP Pediatrics; Visit Provider Physician Assistant | DX: M17.0 Bilateral primary osteoarthritis of knee (principal); M23.92 Unspecified internal derangement of left knee; M85.80 Other specified disorders of bone density and structure, unspecified site; I10 Essential (primary) hypertension; F41.8 Other specified anxiety disorders; Z87.891 Personal history of nicotine dependence; Z96.652 Presence of left artificial knee joint; Z88.8 Allergy status to other drugs, medicaments and biological substances | CPT/HCPCS: 99212 ==

== ENCOUNTER 2021-07-02 14:00 | Outpatient (RCR) | payer MEDICARE, SELFPAY ==
--- NOTE | 2021-06-05 11:19 | MHC.PT.EP ---
[facility] [place] Office [place] Office [place] Office [address] [place] Luu [address] [phone] F: [phone] F: [phone] F: [phone] F: [phone] Physical Therapy Plan of Care Date of Evaluation: Date of Surgery: 05/30/21 Diagnosis: Left knee with partial medial meniscectomy and chondroplasty Assessment: 71 YO FEMALE S/P LEFT KNEE PARTIAL MEDIAL MENISCECTOMY AND CHONDROPLASTY ON 05/30/21; SHE IS CURRENTLY AMB W A QUAD CANE AND TEMPORARILY IS RESIDING W HER DTR. OBJECTIVE FINDINGS: LIMITED AROM Lt KNEE, TIGHT PSOAS MM CHLOE AND DECR ANKLE DF CHLOE; DECR STRENGTH IN PROX / LUMBOPELVIC AND Lt LE, POST-OP PAIN IN LEFT KNEE AND TTP Lt GR TROCH.. FUNCTIONALLY, Pt HAS COMPENSATORY GAIT, MODIFIED STAIR MGMT, DECR STANDING, SLEEPING, AND DECR DORIAN TO ADLs REQ KNEE FLEX. Pt IS A VERY GOOD PT CANDIDATE TO GUIDE HER IN HER POST-OP COURSE, ADDRESSING THE ABOVE FINDINGS, PAIN MGMT, AND MAXIMIZING FUNCTIONAL INDEPENDENCE. Frequency and Duration: The patient will be seen 2 x WK x 5 WKS Short Term Goals: Pt DEMON PROPER QUAD SET IN 1 WK Pt'S KNEE PAIN DECREASED TO 2-3/10 IN 2 WKS Pt DEMON WFL AROM HIP EXT AND ANKLE DF/PF AND AROM KNEE 0* TO 120* IN 2 WKS Pt DEMO IMPROVED GAIT MECH W LEAST RESTRICTIVE AD ON LEVEL GROUND AND STAIRS IN 2 WKS Paint Prepper Goals: Pt INDEP W HEP PROGRESSION AND SELF-SX MGMT STRATEGIES IN 5 WKS Pt RESUME REG ADLs EVIDENT W IMPROVED LEFI SCORE BY 8-10 POINTS (AT EVAL ) IN 5 WKS Pt INCR LE STRENGTH BY 1 GRADE IN 5 WKS Treatment Plan: Modalities to reduce pain, spasms and effusion. Manual therapy to restore motion and function. Therapeutic exercise to improve strength and flexibility. Neuromuscular re-education for posture and balance. Therapeutic activities to return to functional activities of daily living. Electronically signed by: Hodan Haider,PT Please sign and return to therapist. Thank you for your referral.
--- NOTE | 2021-08-01 07:17 | MHC.PT.DC ---
[facility] [place] Office [place] Office [place] Office [address] [place] Luu [address] [facility] [phone] F: [phone] F: [phone] F: [phone] F: [phone] Physical Therapy Discharge Report Diagnosis: Left knee with partial medial meniscectomy and chondroplasty Date of Surgery: 05/30/21 Date of Evaluation: 06/05/21 Date of Discharge: 08/01/21 Treatments to Date: 8 Cancellations to Date: No Shows to Date: 2 Discharge Status: Improved Function Independent with HEP Patient Elected to Stop Discharge Summary: Pt WAS LAST SEEN 07/02/21 W SOLUTION DEVELOPER, HER LEFT KNEE AROM WAS 0-120*. SHE HAD DISPLAYED OVERALL IMPROVED FUNCTIONAL MOBILITY, BUT IN HER NOTE IT STATED SHE HAD RESIDUAL PAIN RANGING UP TO A 6/10, BUT THAT SHE DID FEEL SHE HAS PROGRESSED- Pt DID NOT SHOW FOR HER REMAINING SCHED PT APPTS- AND IS D/C AT THIS TIME. Electronically signed by: Hodan Haider,PT Please sign and return to therapist. Thank you for your referral.
== END 2021-08-01 07:17 | disposition home or self-care (01) ==
LOC: HO.PT 14:00
PROVIDERS: Visit Provider Physician Assistant
DX: M17.0 Bilateral primary osteoarthritis of knee (principal); M23.92 Unspecified internal derangement of left knee
CPT/HCPCS: 97110; 97162; 97530

== ENCOUNTER → 2021-07-03 12:18 | Outpatient (BNVA) | payer MEDICARE, SELFPAY | PROVIDERS: PCP Pediatrics; Visit Provider Physician Assistant | DX: M17.0 Bilateral primary osteoarthritis of knee (principal); M23.92 Unspecified internal derangement of left knee | CPT/HCPCS: 99212 ==

== ENCOUNTER → 2021-08-14 13:14 | Outpatient (BNVA) | payer OTHER, SELFPAY | PROVIDERS: Visit Provider Physician Assistant | DX: M17.12 Unilateral primary osteoarthritis, left knee (principal); M23.92 Unspecified internal derangement of left knee | CPT/HCPCS: 20610; 99212; J1040 ==

== ENCOUNTER 2021-09-09 17:00 | Outpatient (REF) | payer OTHER, SELFPAY ==
[2021-09-09 19:02] LABS: Appearance Urine CLEAR; Color Urine YELLOW; Glucose Urine UA NEG (NEG); Leukocyte Esterase Urine NEG (NEG); Nitrite Urine NEG (NEG); Specific Gravity - Urine 1.015 (1.005-1.025); Urine Blood TRACE (NEG); Urine Ketones NEG (NEG); Urine Protein NEG (NEG-TRACE)
[2021-09-09 19:12] LABS: Squamous Epithelial Cell Urine TRACE /LPF; WBC Urine 0-2 /HPF (0-4)
[2021-09-09 19:13] LABS: Mucus Urine TRACE /LPF; Uric Acid Crystals Urine TRACE /LPF
== END 2021-09-09 17:01 | disposition home or self-care (01) ==
LOC: HO.LAB 17:00
PROVIDERS: Absent Provider Pediatrics; PCP Pediatrics; Visit Provider Family Medicine
DX: G47.30 Sleep apnea, unspecified (principal)
CPT/HCPCS: 81001; 81003

== ENCOUNTER 2021-09-10 12:36 | Outpatient (REF) | payer OTHER, SELFPAY ==
[2021-09-10 12:46] LABS: MANUAL DIFF FLAG NO
[2021-09-10 13:09] LABS: Basophils Percent Auto 0.5 % (0-2); Eosinophils Absolute Auto 0.4 X10*3/uL (0.0-0.4); Hematocrit 38.7 % (37.0-47.0); Hemoglobin 12.7 g/dl (12.0-16.0); Imm Gran Abs Auto 0.03 X10*3/uL (0.00-0.03); Imm Gran Pct Auto 0.5 % (0.0-0.4); Lymphocytes Percent Auto 31.7 % (20-40); Mean Corpuscular HGB Conc 32.8 g/dl (31.0-35.0); Mean Corpuscular Hemoglobin 29.1 pg (27.0-33.0); Mean Corpuscular Volume 88.6 fL (80.0-98.0); Mean Platelet Volume 10.2 fL (9.4-12.3); Monocytes Absolute Auto 0.7 X10*3/uL (0.1-1.2); Monocytes Percent Auto 11.4 % (2-11); Neutrophils Absolute Auto 3.2 x10*3/uL (2.0-8.3); Neutrophils Percent Auto 49.9 % (45-73); Platelet Count 238 X10*3/uL (160-400); Red Blood Count 4.37 X10*6/uL (4.20-5.50); Red Cell Distribution Width 12.6 % (11.0-16.0); White Blood Count 6.3 X10*3/uL (4.8-10.8)
[2021-09-10 13:20] LABS: Estimated Average Glucose 103 mg/dL; Hemoglobin A1c % 5.2 %
[2021-09-10 13:33] LABS: Alanine Aminotransferase 16 U/L (0-31); Albumin Level 3.8 g/dL (3.5-5.0); Alkaline Phosphatase 111 U/L (39-117); Anion Gap 11 (12-20); Aspartate Amino Transferase 18 U/L (5-31); Bilirubin Total 0.4 mg/dL (0.0-1.0); Blood Urea Nitrogen 17 mg/dL (9-16); Calcium 9.3 mg/dL (8.4-10.2); Carbon Dioxide 29 mmol/L (22-29); Chloride 102 mmol/L (96-108); Cholesterol 171 mg/dL; Estimated Glomerular Filt Rate > 60; Glucose Random 93 mg/dL (60-115); HDL Cholesterol 56 mg/dL; LDL Cholesterol Calculated 100 mg/dl; Potassium 4.2 mmol/L (3.3-5.1); Sodium 138 mmol/L (135-145); Total Protein 7.3 g/dL (6.5-8.0); Triglycerides 75 mg/dL
[2021-09-10 13:46] LABS: Creatinine Urine 45.27 mg/dL; Microalbumin Urine < 5.0 mg/L
== END 2021-09-10 12:37 | disposition home or self-care (01) ==
LOC: HO.LAB 12:36
PROVIDERS: Absent Provider Pediatrics; PCP Pediatrics; Visit Provider Family Medicine
DX: R60.0 Localized edema (principal)
CPT/HCPCS: 36415; 80053; 80061; 82043; 83036; 84443; 85025

== ENCOUNTER → 2021-10-22 10:09 | Outpatient (BNVA) | payer OTHER, SELFPAY | PROVIDERS: PCP Pediatrics; Visit Provider Internal Medicine Cardiovascular Disease | DX: R60.9 Edema, unspecified (principal); R06.09 Other forms of dyspnea | CPT/HCPCS: 93005; 99202 ==

== ENCOUNTER → 2021-11-11 10:18 | Outpatient (REF) | payer OTHER, SELFPAY | LOC: HO.SL 10:18 | PROVIDERS: PCP Pediatrics; Visit Provider Family Medicine | DX: Z13.89 Encounter for screening for other disorder (principal) ==

== ENCOUNTER → 2021-11-21 08:22 | Outpatient (REF) | payer OTHER, SELFPAY ==
--- NOTE | 2021-11-21 08:27 | CA_ITS ---
Transthoracic Echocardiogram Patient (Last, First, Middle): Rosemarie Morelos, Gender: Female Date of : 1950 Age: 71 Procedure Date: 11/21/2021 Procedure Type: Transthoracic Echocardiogram Location: OP Height: 167.64 cm Weight: 96.62 kg BSA: 2.05 m2 Heart Rate: bpm BP: 132 / 80 mmHg Bi Specialist: Referring MD: Reilly Back MD Symptoms: R60.9 - Edema, unspecified Study Quality: Adequate ECG Rhythm: Sinus Conclusions: - The left ventricular systolic function is normal. The calculated ejection fraction is 65% by biplane method. - No obvious valvular pathology seen on this study. Findings Left Ventricle Normal left ventricular cavity size. There is mildly increased left ventricular wall thickness. The left ventricular systolic function is normal. The calculated ejection fraction is 65% by biplane method. There is no evidence of regional wall motion abnormalities. Evidence suggests grade I (mild) diastolic dysfunction. Right Ventricle Normal right ventricular cavity size and systolic function. Atria Both atria are normal in size. Aortic Valve The aortic valve structure and function is likely normal. There is no aortic valve stenosis. There is no aortic valve regurgitation. Mitral Valve The mitral valve appears normal. There is trace mitral valve regurgitation. There is no mitral valve stenosis. Pulmonic Valve The pulmonic valve is likely normal. Tricuspid Valve There is trace tricuspid valve regurgitation. There is no evidence of pulmonary hypertension. Great Vessels The asc aorta is normal in size. Venous The inferior vena cava is normal in size and collapses greater than 50% with inspiration. Pericardium/Pleural There is no evidence of pericardial effusion. Prior Study Comparison No prior study available for comparison. Recommendations, Care & Conclusions No obvious valvular pathology seen on this study. Measurements 2D Linear Measurements IVSd: 1.16 0.6-0.9/0.6-1.0 cm LVIDd: 4.09 3.9-5.3/4.2-5.9 cm LVIDd Index: 2.00 2.4-3.2/2.2-3.1 cm/m2 LVIDs: 2.68 2.0-3.6 cm LVPWd: 1.13 0.7-1.1 cm Ao Root: 3.40 2.1-3.5 cm LA Diam: 4.20 2.7-3.8/3.0-4.0 cm LAIDs Index: 2.05 1.5-2.3 cm/m2 LV Mass: 198.93 67-162/88-224 g LV Mass Index: 97.04 43-95/49-115 g/m2 LVOT Diam: 2.30 3.0+(-)1.3 cm 2D Systolic Function EF 4C: 65.00 >55% EF 2C: 62.30 >55% EF BiP: 64.90 >55% Mitral Valve MV Pk E: 0.81 MV PK A: 0.97 MV Decel Time: 227.00 E/A: 0.80 E'Lateral: 7.07 E'Medial: 5.33 E/E' Med: 15.10 E/E' Lat: 11.40 PHT: 66.00 MVA PHT: 3.33 Decel Kent: 3.56 Aortic Valve AoV Pk Kurtis: 1.16 AoV Mn Kurtis: 0.77 AoV VTI: 0.37 AoV Pk Grad: 5.00 Aov Mn Grad: 3.00 SHANNON Cont.VTI: 3.06 LVOT LVOT Pk Kurtis: 0.93 LVOT Mn Kurtis: 0.65 LVOT VTI: 0.27 LVOT Pk Grad: 3.00 LVOT Mn Grad: 2.00 LVOT Diam: 2.30 LVOT Area: 4.15 Diastolic Function MV Pk E: 0.81 MV Pk A: 0.97 E/A: 0.80 E'Medial: 5.33 E/E' Med: 15.10 E' Laterial: 7.07 E/E' Lat: 11.40 Right Ventricle TAPSE (mm): 22.00 TVS' Kurtis: 10.00 Tricuspid Valve TR Pk Kurtis: 1.85 TR Pk Grad: 14.00 RA Press: 3.00 RVSP: 17.00 Great Vessels Aorta Ao Root-2D: 3.40 2.0-3.7 cm Ao Asc: 3.30 2.1-3.4 cm Pulmonary Valve PV Pk Kurtis: 0.85 Peak PV Grad: 3.00 Updated in Other Vendor System with Status of Final Akira Ayala MD electronically signed on 11/22/2021 11:36:51 AM with status of Final
== END ==
LOC: HO.CARD 08:22
PROVIDERS: Absent Provider Family Medicine; PCP Pediatrics; Visit Provider Internal Medicine Cardiovascular Disease
DX: R60.9 Edema, unspecified (principal)
CPT/HCPCS: 93306

== ENCOUNTER 2021-12-12 13:13 | Outpatient (REF) | payer OTHER, SELFPAY ==
--- NOTE | ~2021-12-12 | MM_ITS ---
EXAMINATION: MM SCREENING DIGITAL BREAST TOMOSYNTHESIS, BILATERAL CLINICAL INFORMATION: Screening. Asymptomatic. The lifetime risk of breast cancer based on the Tyrer-Cuzick Model is 4%. COMPARISON: Mammography: 12/11/2020, 09/20/2019, 06/28/2018 TECHNIQUE: Digital breast tomosynthesis is performed in both the craniocaudal and mediolateral oblique views along with computer-aided detection (CAD). Synthesized 2D images are generated from the tomosynthesis. Additional bilateral MLO views are provided. FINDINGS: There are scattered areas of fibroglandular density (ACR BI-RADS breast composition Category b). There are no significant masses, abnormal calcifications, or other abnormalities. There is incidental intramammary node again seen anterior lateral left breast. Some fine bilateral benign round and vascular calcifications are again present. No significant changes. MM/MM tomosynthesis screening BI IMPRESSION: No mammographic evidence of malignancy. ASSESSMENT: BI-RADS 2: Benign RECOMMENDATION: Routine annual mammography screening. This patient's information was entered into a reminder system with a target due date for their next mammogram.
--- NOTE | ~2021-12-12 | XR_ITS ---
EXAMINATION: XR FOOT, RIGHT CLINICAL INFORMATION: Pain, greatest second digit. COMPARISON: Radiographs right foot 06/08/2018 TECHNIQUE: 3 views of the right foot. FINDINGS: There is no acute or healing fracture, dislocation, destructive process. No periostitis. No focal joint narrowing or erosive change. The toes are partially superimposed on the lateral view. Again, there is bulky plantar and smaller posterior calcaneal spur. Retrocalcaneal recess is preserved. Bony mineralization unremarkable. XR/XR foot RT 2V IMPRESSION: 1. Bulky plantar and smaller posterior calcaneal spurs. 2. No fracture, destructive process, or arthropathy.
== END 2021-12-12 13:14 | disposition home or self-care (01) ==
LOC: HO.MAMMO 13:13
PROVIDERS: PCP Pediatrics; Visit Provider Pediatrics
DX: M79.674 Pain in right toe(s) (principal); Z12.31 Encounter for screening mammogram for malignant neoplasm of breast
CPT/HCPCS: 73620; 77063; 77067

== ENCOUNTER 2022-07-15 09:49 | Outpatient (REF) | payer OTHER, SELFPAY ==
[2022-07-15 17:23] LABS: Urine Cytology See Pathology rpt
== END 2022-07-15 09:50 | disposition home or self-care (01) ==
LOC: HO.LNP 09:49
PROVIDERS: PCP Pediatrics; Visit Provider Nurse Practitioner Family
DX: R31.29 Other microscopic hematuria (principal); R32 Unspecified urinary incontinence; R35.0 Frequency of micturition; N20.0 Calculus of kidney
CPT/HCPCS: 88112; 99202

== ENCOUNTER 2022-08-07 07:09 | Outpatient (REF) | payer OTHER, SELFPAY ==
--- NOTE | ~2022-08-07 | US_ITS ---
EXAMINATION: US RETROPERITONEAL COMPLETE (RENAL) CLINICAL INFORMATION: Other microscopic hematuria. COMPARISON: Ultrasound kidneys 02/08/2019 and 02/14/2018. X-ray KUB 05/03/2013 and 04/05/2013. TECHNIQUE: Real-time imaging of the kidneys and bladder. FINDINGS: RIGHT KIDNEY: 11.3 x 4.7 x 4.7 cm (SAG x AP x TRV). The kidney is normal in size, contour, and echogenicity. Renal cortical thickness is normal. No renal calculi or hydronephrosis. 2 cysts measuring 3 x 2.7 x 2.2 cm in the upper pole and 2.8 x 1.8 x 2.6 cm in the lower pole. LEFT KIDNEY: 9.9 x 5.9 x 4.2 cm (SAG x AP x TRV). The kidney is normal in size, contour, and echogenicity. Renal cortical thickness is normal. No focal parenchymal lesions or hydronephrosis. 3 mm stone in the midpole. BLADDER: Well distended and normal. Bilateral ureteral jets are demonstrated. Prevoid bladder volume is 193 mL. Postvoid bladder volume is 59.9 mL. US/US retroperitoneal comp IMPRESSION: Small left renal stone. 60 mL post void bladder residual.
== END 2022-08-07 07:10 | disposition home or self-care (01) ==
LOC: HO.US 07:09
PROVIDERS: PCP Pediatrics; Visit Provider Nurse Practitioner Family
DX: R31.29 Other microscopic hematuria (principal)
CPT/HCPCS: 76770

== ENCOUNTER → 2022-08-26 09:31 | Outpatient (BNVA) | payer OTHER, SELFPAY | PROVIDERS: Visit Provider Nurse Practitioner Family | DX: N20.0 Calculus of kidney (principal); N28.1 Cyst of kidney, acquired; R32 Unspecified urinary incontinence; R35.0 Frequency of micturition | CPT/HCPCS: 51798; 99212 ==

== ENCOUNTER 2022-12-18 12:55 | Outpatient (REF) | payer OTHER, SELFPAY | END 2022-12-18 12:56 | disposition home or self-care (01) | LOC: HO.MAMMO 12:55 | PROVIDERS: PCP Pediatrics; Visit Provider Pediatrics | DX: Z12.31 Encounter for screening mammogram for malignant neoplasm of breast (principal) | CPT/HCPCS: 77063; 77067 ==

== ENCOUNTER → 2022-12-18 13:30 | Outpatient (BNV) | payer OTHER, SELFPAY | PROVIDERS: PCP Pediatrics; Visit Provider Radiology Diagnostic Radiology | DX: Z12.31 Encounter for screening mammogram for malignant neoplasm of breast (principal) | CPT/HCPCS: 77063; 77067 ==

== ENCOUNTER 2023-02-08 07:30 | Outpatient (REF) | payer OTHER, SELFPAY ==
--- NOTE | ~2023-02-08 | US_ITS ---
EXAMINATION: US RETROPERITONEAL LIMITED (RENAL ONLY) CLINICAL INFORMATION: Calculus of kidney. COMPARISON: Ultrasound kidneys and bladder 08/07/2022. Renal ultrasound 02/08/2019. X-ray abdomen KUB 05/03/2013. CT abdomen and pelvis 11/21/2010 TECHNIQUE: Real-time imaging of the kidneys. Limited visualization due to bowel gas. FINDINGS: RIGHT KIDNEY: 10.8 x 5.2 x 6.0 cm (SAG x AP x TRV). No hydronephrosis. No renal calculi. Renal cortical thickness is normal. Limited visualization. Upper pole 2.7 x 2.6 x 2.7 cm cyst and lateral 2.7 x 2.1 x 2.5 cm cyst with benign features. There is no indication for follow-up imaging. LEFT KIDNEY: 11.8 x 6.4 x 5.3 cm (SAG x AP x TRV). No hydronephrosis. No renal calculi. Renal cortical thickness is normal. Limited visualization. US/US renal BI IMPRESSION: Right renal cysts. There is no indication for follow-up imaging. No hydronephrosis. No renal calculi. Limited visualization.
== END 2023-02-08 07:31 | disposition home or self-care (01) ==
LOC: HO.US 07:30
PROVIDERS: PCP Pediatrics; Visit Provider Nurse Practitioner Family
DX: N20.0 Calculus of kidney (principal)
CPT/HCPCS: 76775

== ENCOUNTER 2023-02-24 09:19 | Outpatient (AMB) | payer OTHER, SELFPAY ==
--- NOTE | 2023-02-24 09:20 | A.OFFVIS_ITS ---
Intake Intake Visit Reasons: 6m/US(set) Intake Note: Patient is present for follow up incontinence/microhematuria/renal cyst/kidney stone (imaging 02/08/23) Urology Medications: Vitamin B6 Blood Thinner: aspirin PVR: 0ml's Storage And Backup Administrator Required: Yes Storage And Backup Administrator Name: Baron [id number] Accompanied by: Self / Same As Patient Allergies lisinopril [LISINOPRIL] Allergy (Severe, Verified 02/24/23 09:59) ANGIOEDEMA, anaphylaxis, swelling in mouth and face Medication List - Last Reconciled 02/24/23 by PRABHJOT Mills acetaminophen ER (Arthritis Pain Reliever) 1 tab PO Q8H PRN albuterol sulfate 90 mcg/actuation (ProAir HFA) 2 puffs PO Q4-6H PRN albuterol sulfate 3 mL inhalation TID PRN amlodipine 5 mg PO DAILY aripiprazole 1 mg PO QAM aspirin 81 mg PO DAILY citalopram 40 mg PO QAM clonazepam 1 mg PO BEDTIME PRN cyclobenzaprine 10 mg PO TID PRN diclofenac sodium 75 mg PO BID fluticasone propionate 110 mcg/actuation (Flovent HFA) 1 puff PO BID furosemide 40 mg PO DAILY gabapentin 100 mg PO BEDTIME gabapentin 0 mg PO montelukast 10 mg PO BEDTIME pyridoxine (vitamin B6) 100 mg PO DAILY 90 days HPI HPI Comments History of Present Illness Details Rosemarie is a pleasant 73 year old German speaking patient of Dr. Morales. She has a past medical history of osteoarthritis, lumbar radiculopathy, hypertension, anxiety, depression, osteopenia, and peripheral edema. She presents to the office today for follow-up of her nephrolithiasis and lower urinary tract symptoms. Recent renal ultrasound results reviewed with the patient today. Bilateral kidneys with no calculi or hydronephrosis. Right upper pole 2.7 x 2.6 x 2.7 cm cyst and lateral 2.7 x 2.1 x 2.5 cm cyst with benign features. There is no indication for follow-up imaging per radiology report. When asked she reports urinary frequency, urinary urgency and intermittent episodes of incontinence if not near a bathroom however relates this issue to her Lasix for her peripheral edema. However, does feel lower urinary tract symptoms persist and at time worsen. During last office visit patient was referred to pelvic floor therapy and discusses she will soon start pelvic floor therapy however also wishes to trial medication at this time given symptoms are more bothersome now. She otherwise denies hematuria, dysuria, foul-smelling urine, changes to urinary stream, flank pain, fever, and or chills. When asked she reports compliance with vitamin B6 daily and attempts to continue to drink plenty of water daily. In office urinalysis results reviewed with the patient today. She otherwise offers no issues or concerns at this time. PVR 0 mL. PFSH Medical History Anxiety Depression Osteopenia History of diverticulitis Asthma HTN (hypertension) Surgical History History of laryngoscopy Hx of lithotripsy Hx of dilation and curettage S/P right knee arthroscopy Hx of cataract extraction Hx of right knee surgery History of carpal tunnel release of both wrists History of colon resection Hx of colonoscopy Family History Father Liver cancer Brother Liver cancer Sister Liver cancer Mother Fungus disease Social History Housing: Apartment Alcohol intake: never Patient Tobacco Use Status: Former Tobacco user Quit Date: Review of Systems Const Reports as per HPI Eyes Reports no additional complaints ENT Reports no additional complaints Card Reports as per HPI Resp Reports as per HPI GI Reports no additional complaints Reports as per HPI Musc Reports no additional complaints Neuro Reports no additional complaints Psych Reports no additional complaints Endo Reports no additional complaints Omari/Lymph Reports no additional complaints Aller/Immun Reports no additional complaints Office Procedures Post Void Residual Post Residual Void Post Void Residual (PVR): 0 05183-Pehb Void Residual by ultrasound Results AMB Urinalysis, Automated UA Leukoctes 70 Lyndsey/uL Last Edit by Jori Prabhakar on 02/24/23 09:47 UA Nitrite Negative Last Edit by Jori Prabhakar on 02/24/23 09:47 UA Urobilinogen 0.2 mg/dL Last Edit by Jori Prabhakar on 02/24/23 09:47 UA Protein 0 mg/dL Last Edit by Jori Prabhakar on 02/24/23 09:47 UA pH 6.0 Last Edit by Jori Prabhakar on 02/24/23 09:47 UA Blood 25 Aris/uL Last Edit by Jori Prabhakar on 02/24/23 09:47 UA Specific Logan 1.025 Last Edit by Jori Prabhakar on 02/24/23 09:47 UA Ketone Negative Last Edit by Jori Prabhakar on 02/24/23 09:47 UA Bilirubin 0 mg/dL Last Edit by Jori Prabhakar on 02/24/23 09:47 UA Glucose 0 mg/dL Last Edit by Jori Prabhakar on 02/24/23 09:47 Results Reviewed Results Reviewed: Laboratory Last Values Urine pH (Auto) 6.0 02/24/23 09:23 Specific Logan (Auto) 1.025 02/24/23 09:23 Urine Protein (Auto) 0 mg/dL 02/24/23 09:23 Glucose (UA)(Auto) 0 mg/dL 02/24/23 09:23 Urine Ketones (Auto) Negative 02/24/23 09:23 Urine Blood (Auto) 25 Aris/uL 02/24/23 09:23 Urine Nitrite (Auto) Negative 02/24/23 09:23 Urine Bilirubin (Auto) 0 mg/dL 02/24/23 09:23 Urine Urobilinogen (Auto) 0.2 mg/dL 02/24/23 09:23 Leukocyte Esterase (Auto) 70 Lyndsey/uL 02/24/23 09:23 Date of Service: 02/08/23 EXAMINATION: US RETROPERITONEAL LIMITED (RENAL ONLY) FINDINGS: RIGHT KIDNEY: 10.8 x 5.2 x 6.0 cm (SAG x AP x TRV). No hydronephrosis. No renal calculi. Renal cortical thickness is normal. Limited visualization. Upper pole 2.7 x 2.6 x 2.7 cm cyst and lateral 2.7 x 2.1 x 2.5 cm cyst with benign features. There is no indication for follow-up imaging. LEFT KIDNEY: 11.8 x 6.4 x 5.3 cm (SAG x AP x TRV). No hydronephrosis. No renal calculi. Renal cortical thickness is normal. Limited visualization. IMPRESSION: Right renal cysts. There is no indication for follow-up imaging. No hydronephrosis. No renal calculi. Limited visualization. Assessment & Plan Assessment & Plan (1) Recurrent nephrolithiasis: Code(s): N20.0 - Calculus of kidney (2) Incontinence: Code(s): R32 - Unspecified urinary incontinence (3) Urinary frequency: Code(s): R35.0 - Frequency of micturition (4) Renal cyst: Code(s): N28.1 - Cyst of kidney, acquired Plan In office urinalysis results reviewed with the patient; as noted above PVR- 0ml's Recent renall ultrasound results reviewed with the patient today. Continue pelvic floor therapy as planned Start Myrbetriq 25 mg daily Discussed bladder triggers/irritants Discussed possible near future in office cystoscopy and or urodynamics for further assessment evaluation. Discussed importance of drinking adequate amount of water daily. Discussed adding 1 oz of lemon juice to water daily Continue vitamin B6 as discussed and prescribed. Follow-up in 6 weeks with PVR; or sooner with any issues, concerns, and or questions. Orders: Orders AMB Urinalysis Automated 02/24/23 Z13.9 - Encounter for screening, unspecified AMB Post Void Residual by ultrasound 02/24/23 R32 - Unspecified urinary incontinence Medications: New mirabegron ER (Myrbetriq) 25 mg PO DAILY 30 days 30 tabs 1RF N30.10 - Interstitial cystitis (chronic) without hematuria, N32.81 - Overactive bladder, R35.1 - Nocturia, R39.15 - Urgency of urination Patient Instructions: The patient had an opportunity to ask questions regarding the treatment plan. All questions were answered. Physical exam, labs, and imaging were discussed and reviewed in detail. As well as risks, benefits, and discussion of treatment choices. No major barriers to understanding were identified. The patient expressed understanding and agreement with the above treatment plan. The patient was made aware they should contact our office by phone for worsening of their current condition, the appearance of new symptoms, or with any questions or concerns. Compliance is encouraged with any medications and follow up testing that is ordered. It is a privilege to be allowed the opportunity to participate in? your urological care.? Again, if you have any questions or concerns If you have any questions or concerns please do not hesitate to contact me. The office is [phone]. This note is constructed using voice recognition software. While every effort has been made to ensure accuracy tours captain errors may have been included. Yours sincerely, BETSEY Mills- Coding Level of Care Code Est Pt Level 4 (41823) Diagnoses Recurrent nephrolithiasis N20.0 Incontinence R32 Urinary frequency R35.0 Renal cyst N28.1 CPT Codes Post Residual Void - PVR CPT Code: 54015-Vzfv Void Residual by ultrasound ([id number])
== END 2023-02-24 10:13 | disposition home or self-care (01) ==
PROVIDERS: PCP Pediatrics; Visit Provider Nurse Practitioner Family
DX: Z13.9 Encounter for screening, unspecified (principal)
CPT/HCPCS: 99214

== ENCOUNTER → 2023-02-24 09:19 | Outpatient (BNVA) | payer OTHER, SELFPAY | PROVIDERS: PCP Pediatrics; Visit Provider Nurse Practitioner Family | DX: N20.0 Calculus of kidney (principal); N28.1 Cyst of kidney, acquired; R32 Unspecified urinary incontinence; R35.0 Frequency of micturition | CPT/HCPCS: 51798; 81003; 99212 ==

== ENCOUNTER 2023-05-20 10:35 | Outpatient (REF) | payer OTHER, SELFPAY ==
[2023-05-20 14:50] LABS: MANUAL DIFF FLAG NO
[2023-05-20 15:22] LABS: Basophils Absolute Auto 0.1 X10*3/uL (0.0-0.2); Basophils Percent Auto 1.1 % (0-2); Eosinophils Absolute Auto 0.4 X10*3/uL (0.0-0.4); Eosinophils Percent Auto 4.7 % (0-4); Estimated Average Glucose 103 mg/dL; Hematocrit 43.7 % (37.0-47.0); Hemoglobin 14.4 g/dl (12.0-16.0); Hemoglobin A1c % 5.2 % (<6.0); Imm Gran Abs Auto 0.05 X10*3/uL (0.00-0.03); Imm Gran Pct Auto 0.7 % (0.0-0.4); Lymphocytes Absolute Auto 2.4 X10*3/uL (1.2-4.9); Lymphocytes Percent Auto 32.4 % (20-40); Mean Corpuscular Hemoglobin 28.7 pg (27.0-33.0); Mean Corpuscular Volume 87.2 fL (80.0-98.0); Mean Platelet Volume 10.3 fL (9.4-12.3); Monocytes Absolute Auto 0.7 X10*3/uL (0.1-1.2); Neutrophils Absolute Auto 3.9 x10*3/uL (2.0-8.3); Neutrophils Percent Auto 52.1 % (45-73); Platelet Count 281 X10*3/uL (160-400); Red Blood Count 5.01 X10*6/uL (4.20-5.50); White Blood Count 7.5 X10*3/uL (4.8-10.8)
[2023-05-20 15:38] LABS: Alanine Aminotransferase 20 U/L (0-31); Albumin Level 3.8 g/dL (3.5-5.0); Alkaline Phosphatase 94 U/L (39-117); Anion Gap 14 (12-20); Aspartate Amino Transferase 23 U/L (5-31); Bilirubin Total 0.3 mg/dL (0.0-1.0); Blood Urea Nitrogen 23 mg/dL (9-16); Calcium 9.4 mg/dL (8.4-10.2); Carbon Dioxide 26 mmol/L (22-29); Chloride 100 mmol/L (96-108); Cholesterol 179 mg/dL (<200); Estimated Glomerular Filt Rate > 60; Glucose Random 72 mg/dL (60-115); HDL Cholesterol 45 mg/dL (>40); LDL Cholesterol Calculated 114 mg/dL (<100); Potassium 3.7 mmol/L (3.3-5.1); Sodium 136 mmol/L (135-145); Total Protein 8.2 g/dL (6.5-8.0); Triglycerides 102 mg/dL (<150)
[2023-05-20 15:45] LABS: TSH reflex Free T4 2.74 uIU/mL (0.32-4.0); Vitamin D 25-OH Total 18.8 ng/mL (>30)
[2023-05-20 15:47] LABS: Creatinine Urine 182.85 mg/dL; Microalbum/Creatinine Ratio Ur 12.5 ug/mg cr (<30)
[2023-05-20 15:57] LABS: Folate 3.8 ng/mL (> or = 4.0); Vitamin B12 463 pg/mL (200-900)
== END 2023-05-20 10:36 | disposition home or self-care (01) ==
LOC: HO.CHCLDS 10:35
PROVIDERS: Visit Provider Pediatrics
DX: I10 Essential (primary) hypertension (principal); L29.9 Pruritus, unspecified; L85.3 Xerosis cutis; R79.89 Other specified abnormal findings of blood chemistry; M85.88 Other specified disorders of bone density and structure, other site
CPT/HCPCS: 36415; 80053; 80061; 82043; 82306; 82570; 82607; 82746; 83036; 84443; 84550; 85025

== ENCOUNTER 2023-05-31 10:43 | Outpatient (REF) | payer OTHER, SELFPAY ==
[2023-05-31 13:56] VITALS: BMI 35.2
[2023-05-31 13:57] VITALS: BP 147/72; PULSE 69; RESP 18; TEMP 36.3; O2SAT 97
== END 2023-05-31 10:44 | disposition home or self-care (01) ==
LOC: HO.MS 10:43
PROVIDERS: PCP Pediatrics; Visit Provider Ophthalmology
PROC: (CPT 66821; principal; 2023-05-31 12:50)
DX: H26.492 Other secondary cataract, left eye (principal)
CPT/HCPCS: 66821

== ENCOUNTER 2023-11-19 13:51 | Emergency (ER) | payer OTHER, SELFPAY ==
--- NOTE | ~2023-11-19 | XR_ITS ---
EXAMINATION: XR CHEST CLINICAL INFORMATION: Shortness of breath. COMPARISON: July 09, 2020 TECHNIQUE: 2 views of the chest were obtained. FINDINGS: The lungs are well expanded. Stable biapical scarring. No focal consolidation. No pleural effusion. Cardiac silhouette is unchanged. XR/XR chest 2V IMPRESSION: No acute abnormality. Electronically signed by: Dexter Roe MD 11/19/2023 03:39 PM EDT
[2023-11-19 14:19] VITALS: BP 150/77; PULSE 60; RESP 17; TEMP 36.6; O2SAT 96; BMI 34.4
--- NOTE | 2023-11-19 14:21 | ED_ITS ---
HPI - General Adult General Chief complaint: Dyspnea Stated complaint: HBP sent by [facility] Time Seen by Provider: 11/19/23 21:04 Source: patient, family, RN notes reviewed, old records reviewed and conference interpreter Mode of arrival: ambulatory Limitations: language barrier History of Present Illness ED Provider: Srinivasan HPI narrative: 73-year-old female with past medical history significant for peripheral edema, osteoarthritis, asthma presents for evaluation of leg swelling and shortness of breath pain Patient reports worsening symptoms for 1 week. She has previously been prescribed furosemide but is not actively taking it. It was discontinued in the past due to low potassium. The patient is not currently on any diuretic She states that she uses ?only a little bit of salt. She denies any fevers, chills, cough. She has been using her inhalers for asthma as prescribed. She denies any chest pain. She endorses lower back pain Patient uses amlodipine for her blood pressure but feels as though her blood pressure is poorly controlled with this Related Data Home Medications ?Medication ?Instructions ?Recorded ?Confirmed acetaminophen 650 mg 1 tab PO Q8H PRN Pain 02/06/20 10/22/21 tablet,extended release (Arthritis Pain Reliever) albuterol sulfate 2.5 mg/3 mL 3 ml inhalation TID PRN muscle 02/06/20 10/22/21 (0.083 %) solution for nebulization spasm albuterol sulfate 90 mcg/actuation 2 puff PO Q4-6H PRN Shortness Of 02/06/20 10/22/21 aerosol inhaler (ProAir HFA) Breath Or Wheezing fluticasone propionate 110 1 puff PO BID 02/06/20 10/22/21 mcg/actuation HFA aerosol inhaler (Flovent HFA) amlodipine 5 mg tablet 5 mg PO DAILY 10/22/21 10/22/21 aspirin 81 mg tablet,delayed 81 mg PO DAILY 10/22/21 10/22/21 release citalopram 40 mg tablet 40 mg PO QAM 10/22/21 10/22/21 clonazepam 1 mg tablet 1 mg PO BEDTIME PRN Insomnia 10/22/21 10/22/21 montelukast 10 mg tablet 10 mg PO BEDTIME 10/22/21 10/22/21 aripiprazole 2 mg tablet 1 mg PO QAM 07/15/22 gabapentin 100 mg capsule 100 mg PO BEDTIME 07/15/22 gabapentin 300 mg capsule 0 mg PO 07/15/22 furosemide 40 mg tablet 40 mg PO DAILY 02/24/23 Previous Rx's ?Medication ?Instructions ?Recorded cyclobenzaprine 10 mg tablet 10 mg PO TID PRN muscle spasm #14 07/09/20 tabs diclofenac sodium 75 mg 75 mg PO BID #60 tabs 09/17/20 tablet,delayed release pyridoxine (vitamin B6) 100 mg 100 mg PO DAILY 90 days #90 tabs 08/26/22 tablet mirabegron 25 mg tablet,extended 25 mg PO DAILY 30 days #30 tabs 02/24/23 release 24 hr (Myrbetriq) furosemide 40 mg tablet (Lasix) 40 mg PO DAILY #3 tabs 11/19/23 potassium chloride 40 mEq/15 mL 40 meq (15 mL) PO DAILY 5 days #75 11/19/23 oral liquid mL Allergies Allergy/AdvReac Type Severity Reaction Status Date / Time lisinopril [LISINOPRIL] Allergy Severe ANGIOEDEMA, Verified 11/19/23 14:22 anaphylaxis, swelling in mouth and face Review of Systems 2 Constitutional: Constitutional: Denies body ache(s), Denies chills, Denies fever(s) and Denies headache(s) Eyes: Eyes: Denies blurry vision ENT: Denies dizziness and Denies headache(s) Cardiovascular: Cardiovascular: Denies chest pain, Reports pedal edema, Reports leg edema, Denies palpitations and Reports dyspnea Respiratory: Respiratory: Denies cough, Denies pain with cough, Reports dyspnea and Reports wheezing Gastrointestinal: Gastrointestinal: Denies abdominal pain and Denies nausea Genitourinary: Genitourinary: Denies dysuria Musculoskeletal: Musculoskeletal: Reports back pain Integumentary/Breasts: Skin/Breast: Denies rash Neurologic: Denies dizziness and Denies headache(s) Endocrine: Endocrine: Denies palpitations Allergic/Immunologic: Allergic/Immunologic: Reports wheezing [facility] Past Medical History Medical History Anxiety Depression Osteopenia History of diverticulitis Asthma HTN (hypertension) Surgical History History of laryngoscopy Hx of lithotripsy Hx of dilation and curettage S/P right knee arthroscopy Hx of cataract extraction Hx of right knee surgery History of carpal tunnel release of both wrists History of colon resection Hx of colonoscopy Family History Family History Father Liver cancer Brother Liver cancer Sister Liver cancer Mother Fungus disease Social History Social History Housing: Apartment Alcohol intake: never Patient Tobacco Use Status: Former Tobacco user Smoked in Last 30 Days: No Use of substances other than those prescribed or required for medical reasons: No Advance Directives: No Advance Directives Information Provided: No Physical Exam ED Vital Signs: Vital Signs - 24 hr 11/19/23 14:19 11/19/23 21:01 Temperature 97.8 F 98.7 F Pulse Rate 60 64 Respiratory Rate 17 16 Blood Pressure 150/77 H 146/70 H Pulse Oximetry 96 97 Oxygen Delivery Method Room Air Room Air BMI result Body Mass Index 34.4 Const General: healthy appearing, comfortable, no acute distress, alert and awake Nutritional Appearance: well nourished Orientation/consciousness: patient oriented x3 HENMT Head: Yes normocephalic and Yes atraumatic Eyes Eyelids: Yes eyelids normal Conjunctivae: conjunctivae normal Sclerae: sclerae normal Corneas: corneas normal Pupils: Equal, round and reactive pupils present EOM: EOMs intact bilaterally Neck Neck: Yes full ROM Resp Other: Faint expiratory wheeze bilaterally Effort & Inspection: normal respiratory effort, able to speak in complete sentences and not labored Cardio Other: 2 to 3+ bilateral pitting edema to lower extremities. No significant erythema or increased warmth. No open wounds. No weeping drainage Rate: regular rate Rhythm: regular rhythm Skin General skin exam: elasticity normal Neuro General: patient oriented x3 Cranial nerves: Yes Equal, round and reactive pupils present and Yes Bilaterally intact EOM present Cognition (Neuro): normal cognition Course Course Course Narrative: This is a Rapid Medical Examination (RME) performed by Katherin Vásquez PA-C in triage. Full HPI, ROS, assessment and treatment plan per primary provider in the Main ED. 73 yo female hx of CHF, COPD, HTN, asthma, anxiety, GERD here from [facility] for eval of increased SOB and LE swelling. + 1+ pitting edema to b/l LEs. lungs clear. Plan: labs, ekg, cxr, viral swabs Medical Decision Making Medical Decision Making [facility] Narrative: 73-year-old female with past medical history as documented above. She denies any known history of congestive heart failure, her BNP is 17, chest x-ray shows no evidence of pleural effusions or pulmonary vascular congestion. She is not hypoxic, she is not tachycardic, her edema is bilateral, I have a lower suspicion for DVT/PE. She does have a history of peripheral edema possibly lymphedema. There is no evidence to suggest cellulitis. She has faint wheezing on exam likely consistent with a mild asthma exacerbation. The patient's blood pressure is 146/70, she has no chest pain, her troponin is undetectable, we can treat the patient's leg swelling with furosemide 40 mg daily for 3 days, I will administer supplemental potassium as her potassium was only 3.2. She will follow up with the primary doctor. I did discuss with her that amlodipine can cause lower extremity edema and she can discuss this with her primary doctor Differential Diagnosis Differential Diagnoses: The differential diagnosis associated with the presentation includes Dependent edema Lymphedema CHF Cellulitis DVT less likely Asthma exacerbation Bronchitis Pneumonia Admission/Observation Consideration of admission/observation: Escalation of care including admission/observation considered Consider admission, but the patient is not hypoxic, tachycardic or febrile Lab Data [facility] Lab Attestation statement: I reviewed the patient's lab results. No significant hematology abnormalities. Patient's chemistries are significant for a hypokalemia of 3.2, renal function is at her baseline 11/19/23 14:42 11/19/23 14:42 Labs: Lab Results 11/19/23 Range/Units 14:42 WBC 7.4 (4.8-10.8) X10*3/uL RBC 4.40 (4.20-5.50) X10*6/uL Hgb 13.1 (12.0-16.0) g/dl Hct 39.2 (37.0-47.0) % MCV 89.1 (80.0-98.0) fL MCH 29.8 (27.0-33.0) pg MCHC 33.4 (31.0-35.0) g/dl RDW 13.0 (11.0-16.0) % Plt Count 242 (160-400) X10*3/uL MPV 9.8 (9.4-12.3) fL Immature Gran % (Auto) 0.3 (0.0-0.4) % Neut % (Auto) 56.6 (45-73) % Lymph % (Auto) 28.3 (20-40) % Anson % (Auto) 9.4 (2-11) % Eos % (Auto) 4.6 H (0-4) % Baso % (Auto) 0.8 (0-2) % Lymph # (Auto) 2.1 (1.2-4.9) X10*3/uL Anson # (Auto) 0.7 (0.1-1.2) X10*3/uL Eos # (Auto) 0.3 (0.0-0.4) X10*3/uL Baso # (Auto) 0.1 (0.0-0.2) X10*3/uL Abs Immat Gran (auto) 0.02 (0.00-0.03) X10*3/uL Absolute Neuts (auto) 4.2 (2.0-8.3) x10*3/uL Absolute Nucleated RBC 0.000 (0.0-0.012) X10*3/uL Nucleated RBC % (auto) 0.0 (0.0-0.2) /100WBC Sodium 137 (135-145) mmol/L Potassium 3.2 L (3.3-5.1) mmol/L Chloride 102 (96-108) mmol/L Carbon Dioxide 29 (22-29) mmol/L Anion Gap 9 L (12-20) BUN 19 H (9-16) mg/dL Creatinine 0.82 (0.5-1.4) mg/dL Estim Creat Clear Calc 76.2 Estimated GFR > 60 Random Glucose 98 (60-115) mg/dL Calcium 9.4 (8.4-10.2) mg/dL Magnesium 1.9 (1.6-2.6) mg/dL Total Bilirubin 0.7 (0.0-1.0) mg/dL AST 20 (5-31) U/L ALT 16 (0-31) U/L Alkaline Phosphatase 89 (39-117) U/L Troponin I High Sens < 2.7 (<3.5-17.0) ng/L B-Natriuretic Peptide 17 (<100) pg/mL Total Protein 7.9 (6.5-8.0) g/dL Albumin 3.7 (3.5-5.0) g/dL Lipase 13 (8-78) U/L Influenza Type A (PCR) NEGATIVE (Negative) Influenza Type B (PCR) NEGATIVE (Negative) RSV RNA Qual (PCR) NEGATIVE (Negative) SARS-CoV-2 RNA (RT-PCR) NEGATIVE (Negative) Independent Interpretation I performed an independent interpretation of an: EKG (Sinus bradycardia with a rate of [address] segment changes) and Plain X-Ray Interpretation: Agree with Radiology interpretation, no significant pleural effusions or pulmonary vascular congestion Radiology Impression Discussion of test interpretation with radiology: I have reviewed the radiologist's reading. Radiologist Impression: FINDINGS: The lungs are well expanded. Stable biapical scarring. No focal consolidation. No pleural effusion. Cardiac silhouette is unchanged. XR/XR chest 2V IMPRESSION: No acute abnormality. Electronically signed by: Dexter Roe MD 11/19/2023 03:39 PM EDT RP Discharge Plan Discharge Clinical Impression: Edema, peripheral, Acute hypokalemia Patient Disposition: Home, Self-Care Instructions: Hypokalemia (ED), Leg Edema (ED) Additional Instructions: Your workup in the ER today was significant for a slightly low potassium of 3.2. Given your significant edema I did prescribe Lasix, 40 mg daily for the next 3 days. I also prescribed potassium 40 mEq to be taken daily for the next 5 days Your chest x-ray was clear and did not show any fluid buildup or pneumonia I recommend that you follow-up with your primary doctor regarding your blood pressure. Amlodipine can also cause leg swelling Prescriptions: New furosemide [Lasix] 40 mg tablet 40 mg PO DAILY Qty: 3 0RF potassium chloride 40 mEq/15 mL liquid 40 meq PO DAILY 5 Days Qty: 75 0RF No Action amlodipine 5 mg tablet 5 mg PO DAILY albuterol sulfate 2.5 mg /3 mL (0.083 %) solution for nebulization 3 ml inhalation TID PRN (Reason: muscle spasm) acetaminophen [Arthritis Pain Reliever] 650 mg tablet extended release 1 tab PO Q8H PRN (Reason: Pain) albuterol sulfate [ProAir HFA] 90 mcg/actuation HFA aerosol inhaler 2 puff PO Q4-6H PRN (Reason: Shortness Of Breath Or Wheezing) Flovent HFA 110 mcg/actuation HFA aerosol inhaler 1 puff PO BID aspirin 81 mg tablet,delayed release (DR/EC) 81 mg PO DAILY citalopram 40 mg tablet 40 mg PO QAM clonazepam 1 mg tablet 1 mg PO BEDTIME PRN (Reason: Insomnia) montelukast 10 mg tablet 10 mg PO BEDTIME cyclobenzaprine 10 mg tablet 10 mg PO TID PRN (Reason: muscle spasm) Qty: 14 0RF diclofenac sodium 75 mg tablet,delayed release (DR/EC) 75 mg PO BID Qty: 60 2RF furosemide 40 mg tablet 40 mg PO DAILY Myrbetriq 25 mg tablet extended release 24 hr 25 mg PO DAILY 30 Days Qty: 30 1RF gabapentin 300 mg capsule 0 mg PO aripiprazole 2 mg tablet 1 mg PO QAM gabapentin 100 mg capsule 100 mg PO BEDTIME Rx Instructions: Start with 1 capsule at night, one week later take 2 capsules at night then one week later take 3 capsules at night pyridoxine (vitamin B6) 100 mg tablet 100 mg PO DAILY 90 Days Qty: 90 3RF Print Language: Albanian
--- NOTE | 2023-11-19 14:23 | ECG_ITS ---
Test Reason : sob Blood Pressure : / mmHG Vent. Rate : 057 BPM Atrial Rate : 057 BPM P-R Int : 182 ms QRS Dur : 092 ms QT Int : 478 ms P-R-T Axes : 045 035 038 degrees QTc Int : 465 ms Sinus bradycardia Otherwise normal ECG When compared with ECG of 09-JUL-2020 13:34, QT has shortened Referred By: Debbie Vásquez Electronically Signed By:YASMIN ESPANA
[2023-11-19 14:50] LABS: MANUAL DIFF FLAG NO
[2023-11-19 14:51] LABS: Basophils Absolute Auto 0.1 X10*3/uL (0.0-0.2); Basophils Percent Auto 0.8 % (0-2); Eosinophils Absolute Auto 0.3 X10*3/uL (0.0-0.4); Eosinophils Percent Auto 4.6 % (0-4); Hematocrit 39.2 % (37.0-47.0); Hemoglobin 13.1 g/dl (12.0-16.0); Imm Gran Abs Auto 0.02 X10*3/uL (0.00-0.03); Imm Gran Pct Auto 0.3 % (0.0-0.4); Lymphocytes Absolute Auto 2.1 X10*3/uL (1.2-4.9); Lymphocytes Percent Auto 28.3 % (20-40); Mean Corpuscular HGB Conc 33.4 g/dl (31.0-35.0); Mean Corpuscular Hemoglobin 29.8 pg (27.0-33.0); Mean Corpuscular Volume 89.1 fL (80.0-98.0); Mean Platelet Volume 9.8 fL (9.4-12.3); Monocytes Absolute Auto 0.7 X10*3/uL (0.1-1.2); Monocytes Percent Auto 9.4 % (2-11); Neutrophils Absolute Auto 4.2 x10*3/uL (2.0-8.3); Neutrophils Percent Auto 56.6 % (45-73); Platelet Count 242 X10*3/uL (160-400); White Blood Count 7.4 X10*3/uL (4.8-10.8)
[2023-11-19 15:20] LABS: B Type Natriuretic Peptide 17 pg/mL (<100)
[2023-11-19 15:22] LABS: Alanine Aminotransferase 16 U/L (0-31); Albumin Level 3.7 g/dL (3.5-5.0); Alkaline Phosphatase 89 U/L (39-117); Anion Gap 9 (12-20); Aspartate Amino Transferase 20 U/L (5-31); Blood Urea Nitrogen 19 mg/dL (9-16); Calcium 9.4 mg/dL (8.4-10.2); Carbon Dioxide 29 mmol/L (22-29); Chloride 102 mmol/L (96-108); Creatinine Clr Calc Pharmacy 76.2; Estimated Glomerular Filt Rate > 60; Glucose Random 98 mg/dL (60-115); Lipase 13 U/L (8-78); Magnesium 1.9 mg/dL (1.6-2.6); Potassium 3.2 mmol/L (3.3-5.1); Sodium 137 mmol/L (135-145); Total Protein 7.9 g/dL (6.5-8.0)
[2023-11-19 15:24] LABS: Troponin-I High Sensitivity < 2.7 ng/L (<3.5-17.0)
[2023-11-19 15:27] LABS: Bilirubin Total 0.7 mg/dL (0.0-1.0)
[2023-11-19 15:32] LABS: Influenza A PCR NEGATIVE (Negative); Influenza B PCR NEGATIVE (Negative); Resp Syncy Virus RNA Qual PCR NEGATIVE (Negative); SARS COV2 PCR INHOUSE NEGATIVE (Negative)
[2023-11-19 21:01] VITALS: BP 146/70; PULSE 64; RESP 16; TEMP 37.1; O2SAT 97
[2023-11-19] MEDS: Albuterol/Iprat 2.5/0.5MG 3 ML AMPUL.NEB INHALE (21:34)
[2023-11-19 21:36] VITALS: PULSE 54; RESP 16; O2SAT 99
[2023-11-19 21:53] VITALS: BP 142/79
[2023-11-19] MEDS: Potassium Chloride ER 20 MEQ TAB.ER.PRT 40 MEQ PO (21:53)
[2023-11-19] MEDS: Furosemide 40 MG TABLET PO (21:53)
[2023-11-19 22:40] VITALS: BP 137/69; PULSE 68; RESP 18; O2SAT 99
[2023-11-19 22:41] VITALS: BP 137/69; PULSE 68; RESP 18; TEMP 37; O2SAT 99
== END 2023-11-19 22:49 | disposition home or self-care (01) ==
PROVIDERS: Physician Assistant Medical; Emergency Provider Emergency Medicine; PCP Pediatrics
DX: R06.02 Shortness of breath (principal); E87.6 Hypokalemia; R00.1 Bradycardia, unspecified; R94.31 Abnormal electrocardiogram [ECG] [EKG]; Z03.818 Encounter for observation for suspected exposure to other biological agents ruled out; Z79.899 Other long term (current) drug therapy; Z87.891 Personal history of nicotine dependence
CPT/HCPCS: 0241U; 71046; 80053; 83690; 83735; 83880; 84484; 85025; 93005; 94640; 99284; 99285

== ENCOUNTER 2023-12-09 14:15 | Outpatient (REF) | payer OTHER, SELFPAY ==
[2023-12-09 17:57] LABS: Anion Gap 10 (12-20); Blood Urea Nitrogen 19 mg/dL (9-16); Calcium 9.1 mg/dL (8.4-10.2); Carbon Dioxide 28 mmol/L (22-29); Chloride 102 mmol/L (96-108); Estimated Glomerular Filt Rate > 60; Glucose Random 72 mg/dL (60-115); Potassium 3.8 mmol/L (3.3-5.1); Sodium 136 mmol/L (135-145)
== END 2023-12-09 14:16 | disposition home or self-care (01) ==
LOC: HO.CHCLDS 14:15
PROVIDERS: Visit Provider Internal Medicine
DX: E87.6 Hypokalemia (principal); R60.0 Localized edema
CPT/HCPCS: 36415; 80048

== ENCOUNTER 2024-01-25 10:18 | Outpatient (REF) | payer OTHER, SELFPAY ==
--- NOTE | ~2024-01-25 | MM_ITS ---
EXAMINATION: MM SCREENING DIGITAL BREAST TOMOSYNTHESIS, BILATERAL CLINICAL INFORMATION: Screening. Asymptomatic. COMPARISON: Mammography: Comparison is made with available priors TECHNIQUE: Digital breast mammography with tomosynthesis is performed in both the craniocaudal and mediolateral oblique views along with computer-aided detection (CAD). FINDINGS: There are scattered areas of fibroglandular density (ACR BI-RADS breast composition Category b). There are no significant masses, abnormal calcifications, or other abnormalities. MM/MM tomosynthesis screening BI IMPRESSION: No mammographic evidence of malignancy. ASSESSMENT: BI-RADS BI-RADS 1 - Negative RECOMMENDATION: Routine annual mammography screening. 1 year F/U This examination should not preclude the clinical evaluation of a suspicious palpable abnormality. This patient's information was entered into a reminder system with a target due date for their next mammogram. Electronically signed by: Marisol Hassan DO 02/03/2024 12:18 PM ANNIE
== END 2024-01-25 10:19 | disposition home or self-care (01) ==
LOC: HO.MAMMO 10:18
PROVIDERS: PCP Pediatrics; Visit Provider Pediatrics
DX: Z12.31 Encounter for screening mammogram for malignant neoplasm of breast (principal)
CPT/HCPCS: 77063; 77067

== ENCOUNTER → 2024-01-25 10:45 | Outpatient (BNV) | payer OTHER, SELFPAY | PROVIDERS: PCP Pediatrics; Visit Provider Internal Medicine | DX: Z12.31 Encounter for screening mammogram for malignant neoplasm of breast (principal) | CPT/HCPCS: 77063; 77067 ==

== ENCOUNTER 2024-03-06 12:25 | Outpatient (AMB) | payer OTHER, SELFPAY ==
--- NOTE | 2024-03-06 12:49 | A.OFFVIS_ITS ---
Vital Signs 03/06/24 12:50 Height 5 ft 7 in Weight 208 lb 1.862 oz BMI 32.6 BP 130/60 Blood Pressure Location Lt brachial Position Sitting Pulse 62 Pulse Source Monitor Intake Visit Reasons: prev km pt 2021 ref by pcp sob Intake Note: pt was ref from pcp for sob, lower led edema. pt state that leg swelling have gotten better due to change of her medication. Special Library Librarian Required: Yes Special Library Librarian Language: Database Manager Name: deepa/Derick [id number] Accompanied by: Self / Same As Patient Allergies lisinopril [LISINOPRIL] Allergy (Severe, Verified 11/19/23 14:22) ANGIOEDEMA, anaphylaxis, swelling in mouth and face Medication List - Last Reconciled 03/06/24 by Reilly Back MD acetaminophen ER (Arthritis Pain Reliever) 1 tab PO Q8H PRN albuterol sulfate 90 mcg/actuation (ProAir HFA) 2 puffs PO Q4-6H PRN albuterol sulfate 3 mL inhalation TID PRN aripiprazole 1 mg PO QAM aspirin 81 mg PO DAILY citalopram 40 mg PO QAM clonazepam mg PO cyclobenzaprine 10 mg PO TID PRN diclofenac sodium 75 mg PO BID fluticasone propionate 110 mcg/actuation (Flovent HFA) 1 puff PO BID furosemide (Lasix) 40 mg PO DAILY mirabegron ER (Myrbetriq) 25 mg PO DAILY 30 days montelukast 10 mg PO BEDTIME pyridoxine (vitamin B6) 100 mg PO DAILY 90 days HPI Comments Details: 74-year-old female who is here for f/u. She was seen in 2021 for lower extremity edema and dyspnea. She underwent echocardiography which showed grade 1 diastolic dysfunction. She was on gabapentin and amlodipine which are likely reason for lower extremity edema. 03/06/2024: She is here for follow-up after approximately 2 years. Lower extremity edema has improved. She is off the gabapentin and amlodipine. She has dyspnea on exertion which she is saying is due to asthma. She does have known asthma and is taking montelukast and inhalers. Occasionally gets left- sided sharp chest pain which feels like a stabbing sensation. Blood pressure is well controlled. EKGs does not have any dynamic changes. [facility] Medical History Anxiety Depression Osteopenia History of diverticulitis Asthma HTN (hypertension) Surgical History History of laryngoscopy Hx of lithotripsy Hx of dilation and curettage S/P right knee arthroscopy Hx of cataract extraction Hx of right knee surgery History of carpal tunnel release of both wrists History of colon resection Hx of colonoscopy Family History Father Liver cancer Brother Liver cancer Sister Liver cancer Mother Fungus disease Social History Housing: Apartment Alcohol intake: never Patient Tobacco Use Status: Former Tobacco user Review of Systems Const Denies chills, Denies fatigue, Denies fever(s), Denies frequent falls, Denies weakness, Denies weight gain and Denies weight loss ENT Denies dizziness Card Denies chest pain, Denies leg edema, Denies lightheadedness, Denies palpitations, Denies dyspnea and Denies dyspnea on exertion Resp Denies cough, Denies dyspnea and Denies dyspnea on exertion GI Denies hematochezia Musc Denies abnormal gait, Denies muscle weakness, Denies numbness, Denies radiating pain into limb and Denies tingling Neuro Denies abnormal gait, Denies dizziness, Denies frequent falls, Denies numbness, Denies tingling and Denies weakness Endo Denies fatigue and Denies palpitations Physical Exam Vital Signs: Last Vital Signs Pulse 62 03/06/24 12:50 BP 130/60 03/06/24 12:50 BMI result Body Mass Index 32.6 GENERAL APPEARANCE: in no acute distress, pleasant. NECK: no carotid bruit, no jugular venous distention. SKIN: no suspicious lesions, warm and dry. HEART: no murmurs, regular rate and rhythm. LUNGS: clear to auscultation bilaterally. ABDOMEN: soft, nontender. EXTREMITIES: No edema. PERIPHERAL PULSES: equal. NEUROLOGIC: No gross deficits, AAO X 3 Office Procedures EKG Details: Sinus rhythm 62 beats per minute, normal axis, QTC 481 milliseconds. [id number], Complete Assessment & Plan Assessment & Plan (1) MORGAN (dyspnea on exertion): Code(s): R06.09 - Other forms of dyspnea Category: Medical Plan Pleasant 74 year female who is here for follow-up. She has not seen us for approximately 2 years. Previously had echocardiography which showed grade 1 diastolic dysfunction. No significant valvular pathology. She has asthma and gets shortness of breath. She thinks asthma is playing a major role in her dyspnea. She appears to be short of breath even with talking during the interview. Blood pressure is well controlled. I have advised her to do a stress Mibi. If she can not exercise on treadmill due to functional limitation then we will consider Lexiscan. Continue same medications for now. Lower extremity edema was due to medications including gabapentin amlodipine and since she got off the amlodipine and gabapentin her edema has improved significantly. Thank you for allowing me to participate in the care of your patient. Please feel free to contact me if you have any questions. Orders: Orders CA stress test Today R06.09 - Other forms of dyspnea NM cardiolite stress test Today R06.09 - Other forms of dyspnea Coding Level of Care Code Est Pt Level 4 (87545) Diagnoses MORGAN (dyspnea on exertion) R06.09 CPT Codes EKG - CPT: 15546-[id number], Complete ([id number])
[2024-03-06 12:50] VITALS: BP 130/60; PULSE 62; BMI 32.6
== END 2024-03-06 13:19 | disposition home or self-care (01) ==
PROVIDERS: PCP Pediatrics; Visit Provider Internal Medicine Cardiovascular Disease
DX: R06.09 Other forms of dyspnea (principal)
CPT/HCPCS: 93010; 99214

== ENCOUNTER → 2024-03-06 12:25 | Outpatient (BNVA) | payer OTHER, SELFPAY | PROVIDERS: PCP Pediatrics; Visit Provider Internal Medicine Cardiovascular Disease | DX: R06.09 Other forms of dyspnea (principal) | CPT/HCPCS: 93005; 99212 ==

== ENCOUNTER → 2024-05-17 08:25 | Outpatient (REF) | payer OTHER, SELFPAY ==
--- NOTE | 2024-05-17 08:27 | CA_ITS ---
Acquisition Time: 2024-05-17 10:34:25 Total Exercise Time: 00:09:10 Test Indications: SOB Medications: SEE H&P Protocol: TABBY Max HR: 93 BPM 62% of Pred: 148 BPM Max BP: 128/84 mmHG Max Work Load: 1.3 METS Exercise Stress Test with exercise 5 secs, unabe to walk on the treadmill; test changed to Lexiscan. Pharmacological Stress Test with Lexiscan while pt kicks her legs in the chair, with no reported symptoms, without any arrythmias, with normotensive response to injection. Nondiagnostic EKG for ischemia. Nuclear images pending. Test reviewed with Dr. Back. Referred By: Reilly Back Electronically Signed By: Edy Townsend
--- OUTSIDE RECORDS SUMMARY | 2024-05-17 09:07 | XMS_ITS | Encounter Summary ---
Author Organization [employer] Address [address] [place] [address] Care Team Providers Care [facility] Name Role Phone Cordelia Diane MD Primary Care Provider [phone] Reason for Visit * Reason Comments Med Refill Encounter Details Date Type Department Care Team ([facility] st Contact Info) Description 02/13/2024 Refill [facility] [address] [place] [address] Didi Dutta MD [address] [place] [address] Pruritus; Dry skin Social History Tobacco Use Types Packs/Day Years Used Date Smoking Tobacco: Never Passive Smoke Exposure: Never Smokeless Tobacco: Never Alcohol Use Standard Drinks/Week Comments Never 0 (1 standard drink = 0.6 oz pur e alcohol) Depression Answer Date Recorded Patient Health Questionnaire-9 Score 15 09/09/2023 Patient Health Questionnaire-9 Score 15 09/09/2023 Last PHQ-9: Questionnaire Data Not on file 0 09/09/2023 Housing Stability Answer Date Recorded What is your housing situation today? I have caden coppola 09/09/[address] you li ve. Do you have problems with any of the following? None of the above 09/09/2023 Food Insecurity Answer Date Recorded Within the past 12 months, y ou worried that your food would run out before you got money to buy more: Never True 09/09/2023 Within the past 12 months,th e food you bought just didn't last and you didn't have enough money to get more: Never True 12/2023 Transportation Answer Date Recorded In the past 12 months, has l ack of transportation kept you from medical appts, meetings, work or from getting things needed for daily living? No 09/09/2023 Utilities Answer Date Recorded In the past 12 months, has t he electric, gas, oil or water company threatened to shut off services in your home? No 09/09/2023 Depression Answer Date Recorded Patient Health Questionnaire-2 Score 5 09/09/2023 Internet Access Answer Date Recorded Internet Access Q1 No 11/01/2023 Internet Access Q2 I do not want or need it 04/2023 Comments Unknown Sex and Gender Information Value Date Recorded Sex Assigned at Female 12/29/2021 10:17 AM EDT Legal Sex Female 10:17 AM EDT Gender Identity Female 12/29/2021 10:17 AM EDT Sexual Orientation Choose not to disclose 2021 10:17 AM EDT documented as of this encounter Plan of Treatment Upcoming Encounters Date Type Department Care Team (Late st Contact Info) Description 06/29/2024 10:15 AM EDT Office Visit [facility] [address] [place] [address] Cordelia Diane MD [address] [place] [address] documented as of this encounter Visit Diagnoses Diagnosis Pruritus Unspecified pruritic disorder Dry skin Other symptoms involving skin and integumentary tissues documented in this encounter Additional Health Concerns Assessment Noted Time PHQ-9 Depression Total Score: 15 024 11:25 AM EDT documented as of this encounter Care Teams [facility] Relationship Specialty Start Date End Date Cordelia Diane MD [address] [place] [address] PCP - General Family Medicine 11/09/18 documented as of this encounter
--- OUTSIDE RECORDS SUMMARY | 2024-05-17 09:07 | XMS_ITS | Encounter Summary ---
Author Organization [employer] Address [address] [facility] 7 [place] [address] Care Team Providers Care Bindery Operator Name Role Phone Cordelia Diane MD Primary Care Provider Reason for Visit * Reason Onset Date Comments Med Change Request 11/23/2023 Encounter Details Date Type Department Care Team ([facility] Contact Info) Description 11/23/2023 Telephone [facility] MEDICINE [address] [place] [address] Cordelia Diane MD [address] [place] [address] Med Change Request Social History Tobacco Use Types Packs/Day Years [...] AM EDT documented as of this encounter Miscellaneous Notes * Telephone Encounter - Richard Mueller - 11/23/2023 9:36 AM EDT Tc from patient calling to request a higher dosage of the amLODIPine (Norvasc) 5 MG tablet states current dosage has no effect on BP documented in this encounter Plan of Treatment Upcoming Encounters Date Type Department Care Team (Late st Contact Info) Description 06/29/2024 10:15 AM EDT Office Visit [facility] CHC MED & PEDS [address] [place] [address] Cordelia Diane MD [address] [place] [address] documented as of this encounter Visit Diagnoses Not on filedocumented in this encounter Additional Health Concerns Assessment Noted Time PHQ-9 Depression Total Score: 15 024 11:25 AM EDT documented as of this encounter Care Teams Bindery Operator Relationship Specialty Start Date End Date Cordelia Diane MD [address] [place] [address] PCP - General Family Medicine 11/09/18 documented as of this encounter
--- OUTSIDE RECORDS SUMMARY | 2024-05-17 09:07 | XMS_ITS | Encounter Summary ---
Author Organization [employer] Address [address] [facility] 7 [place] [address] Care Team Providers Care Sofa Back Upholsterer Name Role Phone Cordelia Diane MD Primary Care Provider [phone] Reason for Visit * Reason Comments Med Refill Encounter Details Date Type Department Care Team ([facility] st Contact Info) Description 05/14/2024 Refill [facility] CHC MED & PEDS [address] [place], [place] [phone] Cordelia Diane MD [address] [place] [address] Pruritus; Dry skin Social History Tobacco Use [...] Description 06/29/2024 10:15 AM EDT Office Visit [facility] MED & PEDS [address] [place] [address] Cordelia Diane MD [address] [place] [address] documented as of this encounter Visit Diagnoses Diagnosis Pruritus Unspecified pruritic disorder Dry skin Other symptoms involving skin and integumentary tissues documented in this encounter Additional Health Concerns Assessment Noted Time PHQ-9 Depression Total Score: 15 024 11:25 AM EDT documented as of this encounter Care Teams Sofa Back Upholsterer Relationship Specialty Start Date End Date Cordelia Diane MD [address] [place] [address] PCP - General Family Medicine 11/09/18 documented as of this encounter
--- OUTSIDE RECORDS SUMMARY | 2024-05-17 09:07 | XMS_ITS | Encounter Summary ---
Author Organization [employer] Address [address] [place] [address] 7 [place] [address] Care Team Providers Care Forepart Reducer Name Role Phone Cordelia Diane MD Primary Care Provider [phone] Encounter Details Date Type Department Care Team (Latest Contact Info) Description 08/28/2021 Abstract [facility] CONVERSIONS Dental, Provider, DDS Social History Tobacco Use Types Packs/Day Years Used Date Smoking Tobacco: Never Assessed Comments Unknown Sex and Gender Information Value [...] Description 06/29/2024 10:15 AM EDT Office Visit [facility] CHC MED & PEDS [address] [place] [address] Cordelia Diane MD [address] [place] [address] documented as of this encounter Visit Diagnoses Not on filedocumented in this encounter Care Teams Forepart Reducer Relationship Specialty Start Date End Date Cordelia Diane MD [address] [place] [address] PCP - General Family Medicine 11/09/18 documented as of this encounter
--- OUTSIDE RECORDS SUMMARY | 2024-05-17 09:07 | XMS_ITS | Clinical Summary ---
Author Organization [employer] Address [address] [facility] 7t [place] [address] Care Team Providers Care Tank Setter Name Role Phone Cordelia Diane MD Primary Care Provider [phone] Allergies Active Allergy Reactions Criticality Noted Date Comments Lisinopril Angioedema High 10/20/2011 Other reaction(s): FACE AND LIP SWELLING Lisinopril-Hydrochlorothiaz keena Angioedema 11/13/2020 Medications lidocaine (Lidoderm) 5 % patch Apply 1 patch topically in the morning. Remove & discard patch within 12 hours or as directed by MD. 30 patch 5 05/30/19 23 Active citalopram (CeleXA) 40 MG tablet Take 1 tablet by mouth in the morning. 01/31/20 21 Active pyridoxine (Vitamin B-6) 100 MG tablet Take 100 mg by mouth in the morning. 08/27/19 23 Active fluticasone (Flovent HFA) 110 MCG/ACT inhaler INHALE 1 PUFF PO 2 TIMES A DAY 12 g 11 08/29/19 23 Active albuterol (2.5 MG/3ML) 0.083% nebulizer solution Take 3 mL by nebulization every 8 (eight) hours if needed for wheezing. 25 mL 3 08/29/19 23 Active albuterol 108 (90 Base) MCG/ACT inhaler INHALE 2 PUFFS BY MOUTH EVERY 4 TO 6 HOURS NEEDED 8.5 g 2 09/04/19 23 Active gabapentin (Neurontin) 300 MG capsule TAKE 1 CAPSULE(300 MG) BY MOUTH TWICE DAILY 60 capsule 3 02/10/20 23 Active cetirizine (ZyrTEC) 10 MG tabletIndicatio ns:Pruritus,Dry skin Take 1 tablet (10 mg) by mouth in the morning. 30 tablet 11 05/20/19 24 2024 Active ergocalciferol (Vitamin D2) 1.25 MG (23559 UT) capsule Take 1 capsule (1.25 mg) by mouth 1 (one) time per week. 15 capsule 09/09/19 24 Active aspirin 81 MG EC tablet Take 1 tablet (81 mg) by mouth Once per day. 90 tablet 11 09/09/19 24 Active acetaminophen (Tylenol 8 Hour) 650 MG ER tablet Take 1 tab orally every 8 hours prn pain 90 tablet 09/09/19 24 Active bacitracin-poly myxin b (Polysporin) ointment Apply topically 2 times daily. 30 g 2 09/09/19 24 Active montelukast (Singulair) 10 MG tabletIndicatio ns:Mild persistent asthma without complication TAKE 1 TABLET BY MOUTH DAILY 90 tablet 3 11/22/19 24 Active clonazePAM (KlonoPIN) 0.5 MG tablet TAKE 1 TO 2 TABLETS BY MOUTH AT BEDTIME NEEDED FOR SLEEP 11/22/19 24 Active spironolactone (Aldactone) 50 MG tabletIndicatio ns:Primary hypertension,Hy pokalemia,Edema , lower extremity Take 1 tablet (50 mg) by mouth Once per day. 30 tablet 11 11/30/19 24 2024 Active losartan (Cozaar) 25 MG tabletIndicatio ns:Primary hypertension Take 1 tablet (25 mg) by mouth Once per day. 30 tablet 11 12/09/19 24 2024 Active azithromycin (Zithromax) 250 MG tablet Take 2 tabs orally on day 1 , then 1 tab daily 6 tablet 12/30/19 24 Active oxybutynin XL (Ditropan-XL) 5 MG 24 hr tablet TAKE 1 TABLET(5 MG) BY MOUTH IN THE MORNING. DO NOT CRUSH, CHEW, OR SPLIT 30 tablet 11 04/18/19 25 Active hydrOXYzine HCl (Atarax) 10 MG tabletIndicatio ns:Pruritus,Dry skin TAKE 1 TABLET(10 MG) BY MOUTH AT BEDTIME NEEDED FOR ITCHING 30 tablet 05/16/19 25 Active oxybutynin XL (Ditropan XL) 5 MG 24 hr tablet Take 1 tablet (5 mg) by mouth in the morning. Do not crush, chew, or split. 30 tablet 11 05/14/19 24 2024 Discontinued hydrOXYzine HCl (Atarax) 10 MG tabletIndicatio ns:Pruritus,Dry skin TAKE 1 TABLET(10 MG) BY MOUTH AT BEDTIME NEEDED FOR ITCHING 30 tablet 03/17/19 25 2024 Discontinued hydrOXYzine HCl (Atarax) 10 MG tabletIndicatio ns:Pruritus,Dry skin TAKE 1 TABLET(10 MG) BY MOUTH AT BEDTIME NEEDED FOR ITCHING 30 tablet 04/18/19 25 2024 Discontinued Active Problems Problem Noted Date Diagnosed Date Bilateral lower extremity edema 11/19/2023 Assessment & Plan (11/19/2023 1:39 PM EDT): Bilateral lower extremity edema, acute on chronic. Differential includes chronic venous insufficiency, medication induced, capillary dilation from warmer weather, lymphedema, lipedema, is fluid overload from untreated AMY or heart failure, low oncotic pressure, DVT, neuromuscular causes, cellulitis, ruptured popliteal cyst, or May Thurner syndrome. -Stemmers sign negative (able to pinch skin on the dorsum of foot) -No evidence of untreated AMY, JVP flat, lungs clear -No evidence of cellulitis or ruptured popliteal cyst -Reveiwed chronic veous insufficiency is the most common cuse. Edema may be a sign cardiopulmonary, renal, hepatic, or thyroid dysfunction. -Management includes compression, elevation, and avoidance of exacerbating medications. -Compression stockings -Suspicious for heart failure, last echo was 2 years ago. Pt as not seen premix operator concentrate in a couple years. Discussed to go to ER for further evaluation and work-up. -referred back to cardiology with Dr. Trino Mckenzie, 11/19/23 Controlled mild persistent asthma 11/30/2018 Low vitamin D level 11/30/2018 Lesion of tongue 08/10/2017 Obesity (BMI 30-39.9) 05/25/2017 Hypokalemia 01/28/2017 Low back pain radiating to left leg 10/15/2016 Epistaxis 12/06/2015 Peripheral venous insufficiency 12/06/2015 Sciatica 12/06/2015 Carpal tunnel syndrome 10/20/2011 Depressive disorder 10/20/2011 Diverticular disease 10/20/2011 Microscopic hematuria 10/20/2011 Osteopenia 10/20/2011 Asthma 08/13/2011 Hypertension 08/13/2011 Tubular adenoma 10/19/2005 Encounters Date Type Department Care Team Description 05/14/2024 Refill [facility] CHC MED & PEDS [address] [place] [address] Cordelia Diane MD Pruritus; Dry skin 04/16/2024 Refill [facility] CHC MED & PEDS [address] [place] [address] Mireya Hemphill MD Pruritus; Dry skin 04/16/2024 Refill [facility] CHC MED & PEDS [address] [place] [address] Cordelia Diane MD 03/17/2024 Refill [facility] CHC MED & PEDS [address] [place] [address] Mireya Hemphill MD Pruritus; Dry skin from Last 3 Months Immunizations Name Administration Dates Next Due Influenza High-dose Quadriva lent Preservative Free 02/11/2023,11/29/2020 Influenza injectable quadriv alent IIV4 with preservative 01/28/2017 Influenza injectable quadriv alent preservative free 11/26/2021 Influenza, High Dose Seasona l, Preservative Free 11/30/2023,11/30/2018,12/09/2017 Influenza, IIV3, injectable 11/10/2010 Influenza, Split (incl. valeriy fied surface antigen) 11/17/2012,11/20/2011 Moderna Covid-19 Vaccine 12+ 02/07/2021,08/16/19 21,07/18/2020 Pneumococcal Conjugate PCV 13 12/20/2017 Pneumococcal Polysaccharide PPSV23 12/20/2017, RSV Bivalent 11/30/2023 TD (adult), 2 Lf tetanus tox oid, preservative free, adsorbed 11/20/2011,03/01/2000 Tdap 11/30/2023 Zoster, Recombinant 01/29/2022,11/26/2021 Social History Tobacco Use Types Packs/Day Years Used Date Smoking Tobacco: Never Passive Smoke Exposure: Never Smokeless Tobacco: Never Tobacco Cessation:Counseling Given: Not Answered Alcohol Use Standard Drinks/Week Comments Never 0 [...] not to disclose 2021 10:17 AM EDT Last Filed Vital Signs Vital Sign Reading Time Taken Comments Blood Pressure 136/79 12/30/2023 10:06 AM EDT Pulse 62 12/30/2023 10:06 AM EDT Temperature 36.4 ??C (97.5 ??F) 12/30/2023 10:06 AM E DT Respiratory Rate 20 12/30/2023 10:06 AM EDT Oxygen Saturation 98% 12/09/2023 3:11 PM EDT Inhaled Oxygen Concentration - - Weight 96.2 kg (212 lb) 12/30/2023 10:06 AM EDT Height 167.6 cm (5' 6 ) 12/30/2023 10:06 AM EDT Body Mass Index 34.22 12/30/2023 10:06 AM EDT Plan of Treatment Upcoming Encounters Date Type Department Care Team ([facility] st Contact Info) Description 06/29/2024 10:15 AM EDT Office Visit [facility] CHC MED & PEDS [address] [place] [address] Cordelia Diane MD [address] [place], [place] [phone] Health Maintenance Due Date Last Done Comments CT Colonography 1952 Colonoscopy 1950 Dental Prophylaxis 1950 Dental X-Ray: Bitewings 1952 Dental X-Ray: Full Mouth 1952 FIT DNA/Cologuard 1950 FOBT 1950 Sigmoidoscopy 1952 Alcohol/Substance Use Screening 1964 Hepatitis C Screening 02/08/1970 Dental Oral Exam 08/14/2022 02/12/2022 Colorectal Cancer Screening 09/25/2023 FIT 09/25/2023 09/24/2022 COVID-19 Vaccine ( season) 2023 12/31/2021, 02/07/2021, 08/15/2020, Additional history exists Depression Monitoring (PHQ-9) 03/11/2024 09/09/2023, 09/09/2023 Depression Screening 09/08/2024 09/09/2023, 09/09/19 24 SDOH Screening 09/08/2024 09/09/2023 Tobacco Screening 12/29/2024 12/30/2023 Mammogram 01/24/2026 01/25/2024, 11/30, 12/12/2021, Additional history exists Lipid Panel 05/19/2028 05/20/2023, 09/10/2021 DTaP/Tdap/Td Vaccines (2 - Td or Tdap) 11/29/2033 11/30/2023, 11/20/2011, 03/01/2000 Pneumococcal Vaccine: 50+ Years Completed 12/20/2017, 12/20/2017, 02/01/2007 Zoster Vaccines Completed 01/29/2022, 11/26/2021 Influenza Vaccine Completed 11/30/2023, , 11/26/2021, Additional history exists RSV Patients and Patients Aged 60 years or older Completed 11/30/2023 HIB Vaccines Aged Out No longer eligi ble based on patient's age to complete this topic HPV Vaccines Aged Out No longer eligi ble based on patient's age to complete this topic Hepatitis A Vaccines Aged Out No long er eligible based on patient's age to complete this topic Hepatitis B Vaccines Aged Out No long er eligible based on patient's age to complete this topic IPV Vaccines Aged Out No longer eligi ble based on patient's age to complete this topic Meningococcal Vaccine Aged Out No lyle chad eligible based on patient's age to complete this topic RSV under 20 months Aged Out No longe r eligible based on patient's age to complete this topic Rotavirus Vaccines Aged Out No longer eligible based on patient's age to complete this topic Procedures Procedure Name Priority Date/Time Associated Diagnosis Comments BI MAMMOGRAM SCREENING TOMOSYNTHESIS BILATERAL Routine 01/25/2024 10:30 AM EST LIPID PANEL, STANDARD Routine 05/20/2023 10:37 AM EDT Pruritus Dry skin Primary hypertension Low vitamin D level HM FECAL IMMUNOCHEMICAL TEST Routine 09/24/2022 PERIODIC ORAL EVALUATION - ESTABLISHED PATIENT Routine 02/12/2022 11:00 AM EST Encounter for dental examination and cleaning with abnormal findings from Last 3 Months or Most Recently Relevant to Health Maintenance Results * BI Mammogram Screening Tomosynthesis Bilateral (01/25/2024 10:30 AM EST) Anatomical Region Laterality Modality Breast Bilateral Mammography 01/25/2024 10:3 0 AM EST Narrative 02/03/2024 12:20 PM EST ? [facility] ? [address] ?[place] [address] ? Mammography Report ? Signed ? Patient: Dumont Black,Dionides ?MR#: ?? [id number] ? : 1950 ?Acct:[id number] ? Age/Sex: 73 / F ?ADM Date: 01/25/24 ? Loc: HO.MAMMO ? Attending Dr: Cordelia Diane MD ? Ordering Physician: Cordelia Diane MD ?Results: 1Ne ?? gative ? Date of Service: 01/25/24 ?Follow Up: 1 Year From Orig ?? inal Mammogram ? Procedure(s): MM tomosynthesis screening BI ?? Accession Number(s): [id number] ? cc: Cordelia Diane MD ? EXAMINATION: ?? MM SCREENING DIGITAL BREAST TOMOSYNTHESIS, BILATERAL ? CLINICAL INFORMATION: ? Screening. Asymptomatic. ? COMPARISON: ?? Mammography: Comparison is made with available priors ? TECHNIQUE: ?? Digital breast mammography with tomosynthesis is performed in both the ?? craniocaudal and mediolateral oblique views along with computer-aided ?? detection (CAD). ? FINDINGS: ?? There are scattered areas of fibroglandular density (ACR BI-RADS breast ?? composition Category b). ? There are no significant masses, abnormal calcifications, or other ?? abnormalities. ? MM/MM tomosynthesis screening BI ?? IMPRESSION: ?? No mammographic evidence of malignancy. ? ASSESSMENT: ? BI-RADS BI-RADS 1 - Negative ? RECOMMENDATION: ?? Routine annual mammography screening. ? 1 year F/U ? This examination should not preclude the clinical evaluation of a ?? suspicious palpable abnormality. ? This patient's information was entered into a reminder system with a ?? target due date for their next mammogram. ? Electronically signed by: ??Marisol Hassan DO ??02/03/2024 12:18 PM EST ? Dictated By: ?Marisol Hassan DO ? Signed By: ?<Electronically signed by Marisol Hassan, DO in OV> ? 02/03/24 1218 ? DD/ 1030 ? TD/TT: 01/25/24 1045 ? Bracelet Maker Novelty: ? Procedure Note Donotmiguelinterpreter, Image - 02/03/2024 Tom [facility]'s [address] [place] [address] Mammography Report Signed Patient: Rosemarie MorelosMR#: [id number] : 2Acct:[id number] Age/Sex: 73 / FADM Date: 01/25/24 Loc: HO.MAMMO Attending Dr: Cordelia Diane MD Ordering Physician: Cordelia Diane MDResults: 1Ne gative Date of Service: 01/25/24Follow Up: 1 Year From Orig inal Mammogram Procedure(s): MM tomosynthesis screening BI Accession Number(s): [id number] cc: Cordelia Diane MD EXAMINATION: MM SCREENING DIGITAL BREAST TOMOSYNTHESIS, BILATERAL CLINICAL INFORMATION: Screening. Asymptomatic. COMPARISON: Mammography: Comparison is made with available priors TECHNIQUE: Digital breast mammography with tomosynthesis is performed in both the craniocaudal and mediolateral oblique views along with computer-aided detection (CAD). FINDINGS: There are scattered areas of fibroglandular density (ACR BI-RADS breast composition Category b). There are no significant masses, abnormal calcifications, or other abnormalities. MM/MM tomosynthesis screening BI IMPRESSION: No mammographic evidence of malignancy. ASSESSMENT: BI-RADS BI-RADS 1 - Negative RECOMMENDATION: Routine annual mammography screening. 1 year F/U This examination should not preclude the clinical evaluation of a suspicious palpable abnormality. This patient's information was entered into a reminder system with a target due date for their next mammogram. Electronically signed by: Marisol Hassan DO 02/03/2024 12:18 PM EST Dictated By: Marisol Hassan DO Signed By: <Electronically signed by Marisol Hassan DO in OV> 02/03/24 1218 DD/ 1030 TD/TT: 01/25/24 1045 Bracelet Maker Novelty: Cordelia Diane MD IMG BI PROCEDURES Edited Resu lt - Final * (ABNORMAL) Lipid Panel, Standard (05/20/2023 10:37 AM EDT) Triglycerides 102 <150 mg/dL [facility] Comment:Desirable Triglyceri de: less than 150 mg/dLBorderline High Triglyceride 150-199 mg/dLHigh Triglyceride: 200-499 mg/dLVery High Triglyceride: greater than or equal to 5OO mg/dL Cholesterol 179 <200 mg/dL [facility] Comment:Desirable Cholestero l: less than 200 mg/dLBorderline High Cholesterol: 200-239 mg/dLHigh Cholesterol: greater than 239 mg/dL LDL Cholesterol Calculated 114(H) <100 mg/dL [facility] Comment:Desirable LDL: less than 100 mg/dLNear Optimal/Above Optimal LDL: 110- 129 mg/dLBorderline High LDL: 130-159 mg/dLHigh LDL: 160-189 mg/dLVery High LDL: greater than or equal to 190 mg/dL HDL Cholesterol 45 >40 mg/dL [facility] Comment:Desirable HDL: great er than 40 mg/dL Note: This HDL assay may give artificially low results in patients with liver disease. Blood Venous blood specimen / Unknown 05/20/2023 10:37 AM EDT 05/20/2023 2:45 PM EDT us Cordelia Diane MD LAB BLOOD ORDERABLES Final Re sult [facility] [address] [place] [address] [phone] * Fecal Immunochemical Test (09/24/2022) Fecal Immunochemical Test Nonreactive Stool Rectal contents / Unknown 09/24/2022 Narrative Christie Hannon RN - 09/24/2022 See scanned report, Normal FIT test Historical Provider HEALTH MAINTENANCE Final Result from Last 3 Months or Most Recently Relevant to Health Maintenance [place] [address] [place] [address] - [facility] - [facility] Care Teams Tank Setter Relationship Specialty Start Date End Date Cordelia Diane MD [address] [place] [address] PCP - General Family Medicine 11/09/18
--- OUTSIDE RECORDS SUMMARY | 2024-05-17 09:07 | XMS_ITS | Encounter Summary ---
Author Organization [employer] Address [address] [place] [address] 7 [place] [address] Care Team Providers Care Fashion Design Professor Name Role Phone Cordelia Diane MD Primary Care Provider [phone] Encounter Details Date Type Department Care Team (Latest Contact Info) Description 12/18/2019 Abstract [facility] CONVERSIONS Dental, Provider, DDS Social History [...] Description 06/29/2024 10:15 AM EDT Office Visit [facility] CHC MED & PEDS [address] [place] [address] Cordelia Diane MD [address] [place] [address] documented as of this encounter Visit Diagnoses Not on filedocumented in this encounter Care Teams Fashion Design Professor Relationship Specialty Start Date End Date Cordelia Diane MD [address] [place] [address] PCP - General Family Medicine 11/09/18 documented as of this encounter
--- OUTSIDE RECORDS SUMMARY | 2024-05-17 09:07 | XMS_ITS | Encounter Summary ---
Author Organization [employer] Address [address] [place] [address] [address] [place] [address] Care Team Providers Care Marketing Information Manager Name Role Phone Cordelia Diane MD Primary Care Provider [phone] Encounter Details Date Type Department Care Team (Latest Contact Info) Description 01/03/2019 Abstract [facility] CONVERSIONS Dental, Provider, DDS Social History [...] Description 06/29/2024 10:15 AM EDT Office Visit [facility] CHC MED & PEDS [address] [place] [address] Cordelia Diane MD [address] [place] [address] documented as of this encounter Visit Diagnoses Not on filedocumented in this encounter Care Teams Marketing Information Manager Relationship Specialty Start Date End Date Cordelia Diane MD [address] [place] [address] PCP - General Family Medicine 11/09/18 documented as of this encounter
--- OUTSIDE RECORDS SUMMARY | 2024-05-17 09:08 | XMS_ITS | Encounter Summary ---
Author Organization [employer] Address [address] [facility] 7t [place] [address] Care Team Providers Care Crate Tier Name Role Phone Cordelia Diane MD Primary Care Provider [phone] Reason for Visit * Reason Comments Med Refill Encounter Details Date Type Department Care Team ([facility] st Contact Info) Description 04/16/2024 Refill [facility] CHC MED & PEDS [address] [place], [place] [phone] Mireya Hemphill MD [address] [place] [address] Pruritus; Dry skin Social History Tobacco Use [...] your housing situation today? I have caden sing 09/09/[address] you li [...] Description 06/29/2024 10:15 AM EDT Office Visit [facility] CHC MED & PEDS [address] [place] [address] Cordelia Diane MD [address] [place] [address] documented as of this encounter Visit Diagnoses Diagnosis Pruritus Unspecified pruritic disorder Dry skin Other symptoms involving skin and integumentary tissues documented in this encounter Additional Health Concerns Assessment Noted Time PHQ-9 Depression Total Score: 15 024 11:25 AM EDT documented as of this encounter Care Teams Crate Tier Relationship Specialty Start Date End Date Cordelia Diane MD [address] [place] [address] PCP - General Family Medicine 11/09/18 documented as of this encounter
--- OUTSIDE RECORDS SUMMARY | 2024-05-17 09:08 | XMS_ITS | Patient Health Record ---
Author Organization [facility] Address [address] [place] [address] Care Team Providers Care Geodetic Engineer Name Role Phone Cordelia Diane MD Primary Care Provider Aly Elliott [phone] Allergies Allergen (clinical drug ingredient) Drug/Non Drug Allergy documented on EMR Reaction Allergy Type Onset Date Status lisinopril Lisinopril Unknown Drug Allergy Activ e Reason For Referral No Information Medications Medication SIG (Take, Route, Frequency, Duration) Notes Start Date End Date Status Gabapentin 100 MG 1 capsule Orally Onc e a day for 30 day(s) Active Citalopram Hydrobromide 40 MG TK 1 T PO QAM Oral for 30 Ac tive Vitamin D-3 Active clonazePAM 1 MG (Schedule IV Drug) T K 1 T PO AT BEDTIME NEEDED Oral for 28 Active Singulair 10 MG 1 tablet Orally Once a day for 30 day(s) Active Aspirin Low Dose 81 MG TK 1 T PO QD Oral for 90 Active Keflex 500 MG 1 capsule Orally ashleigh ry 12 hrs for 10 day(s) Active Chlorthalidone 25 MG TK 1 T PO QD Oral for 29 Active Albuterol Sulfate HFA Active amLODIPine Besylate 5 MG TK 1 T PO QD Oral for 90 Active Flovent HFA 110 MCG/ACT INHALE 1 PUFF PO 2 TIMES A DAY Inhalation for 60 Active Albuterol Sulfate (2.5 MG/3ML) 0.083% INHALE 3 ML NEBULIZATION TID QD PRN FOR BRONCOSPASM Inhalation for 10 Active Arthritis Pain Reliever 650 MG TK 1 T PO Q 8 H PRN Oral for 30 Active ProAir HFA 108 (90 Base) MCG/ACT 1 puff as needed Inhalation every 4 hrs Active Zolpidem Tartrate 10 MG 1 tablet at [place] as needed Orally Once a day Active Social History Tobacco Use: Social History Observation Description Date Details (start date - stop date) Never Smoker NA - NA Tobacco Use/Smoking Question Answer Notes Patient is a nonsmoker Alcohol Screen Question Answer Notes Did you have a drink containing alcohol in the p ast year? No Points 0 Interpretation Negative Section Notes: Nonsmoker, no significant al cohol use Problems Problem Type SNOMED Code ICD Code Onset Dates Problem Status W/U Status Risk Notes Problem Screening for malignant neoplasm of colon (572643859) Encounter for screening for malignant neoplasm of colon (Z12.11) Active confirmed Problem History of adenomatous polyp of colon (793109741) History of adenomatous polyp of colon (Z86.010) Active confirmed Problem Preprocedural examination (469643959609465) Preprocedural examination (Z01.818) Active confirmed Plan Of Treatment Future Test Test Name Order Date COLONOSCOPY 01/09/2020 Insurance Providers Payer Name Payer Address Payer Phone Subscriber Number Group Number Insured Name Patient Relationship to Insured Coverage Start Date Coverage End Date [facility] [address] [address] [place] [address] [phone] [id number] SHAKA RODRIGUEZ Self - patient is the insured Medical (General) History Medical History History ICD Code Diverticulitis in 04/2009 Asthma Hypertension Osteopenia Asthma Colonoscopy in 2005-small tubular adenom a removed Denies [place],DM,CVA,Lung disease,renal dise ase Reports a neg. Cologuard test in 2019 Surgical History Surgery Date(Month/Year) Sigmoid resection 2009 for recurrent div erticulitis Carpal tunnel bilaterally Cateracts Knee surgery right
--- OUTSIDE RECORDS SUMMARY | 2024-05-17 09:08 | XMS_ITS | Encounter Summary ---
Author Organization [employer] Address [address] [place] [address] [address] [place] [address] Care Team Providers Care Mold Release Worker Name Role Phone Cordelia Diane MD Primary Care Provider [phone] Encounter Details Date Type Department Care Team ([facility] Contact Info) Description 09/03/2022 Orders Only [facility] [address] [place] [address] Jo Caba LPN Social History Tobacco Use Types Packs/Day Years Used Date Smoking Tobacco: Never Passive Smoke Exposure: Never Smokeless Tobacco: Never Alcohol Use Standard Drinks/Week Comments Never 0 (1 standard drink = 0.6 oz pur e alcohol) Depression Answer Date Recorded Patient Health Questionnaire-9 Score 1 05/29/2022 Depression Answer Date Recorded Patient Health Questionnaire-2 Score 1 05/29/2022 Comments Unknown Sex and Gender Information Value Date Recorded Sex Assigned at Female 12/29/2021 10:17 AM EDT Legal Sex Female 10:17 AM EDT Gender Identity Female 12/29/2021 10:17 AM EDT Sexual Orientation Choose not to disclose 2021 10:17 AM EDT COVID-19 Exposure Response Date Recorded In the last 10 days, have yo u been in contact with someone who was confirmed or suspected to have Coronavirus/COVID-19? No / Unsure 09/03/2022 8:48 AM EDT documented as of this encounter Plan of Treatment Upcoming Encounters Date Type Department Care Team ([facility] Contact Info) Description 06/29/2024 10:15 AM EDT Office Visit [facility] [address] [place] [address] Cordelia Diane MD [address] [place] [address] documented as of this encounter Visit Diagnoses Not on filedocumented in this encounter Additional Health Concerns Assessment Noted Time PHQ-9 Depression Total Score: 1 05/30/19 23 9:53 AM EDT documented as of this encounter Care Teams Mold Release Worker Relationship Specialty Start Date End Date Cordelia Diane MD [address] [place] [address] PCP - General Family Medicine 11/09/18 documented as of this encounter
--- OUTSIDE RECORDS SUMMARY | 2024-05-17 09:08 | XMS_ITS | Encounter Summary ---
Author Organization [facility] Address [address] [place] [address] [address] [place] [address] Care Team Providers Care Health Spa Manager Name Role Phone Cordelia Diane MD Primary Care Provider [phone] Encounter Details Date Type Department Care Team ([facility] Contact Info) Description 2022 Abstract [facility] [address] [place] [address] Dental, Provider, DDS Social History Tobacco Use [...] suspected to have Coronavirus/COVID-19? No / Unsure 02/12/2022 10:07 AM EST documented as of this encounter Plan of Treatment Upcoming Encounters Date Type Department Care Team ([facility] Contact Info) Description 06/29/2024 10:15 AM EDT Office Visit [facility] MED [facility]EDS [address] [place], [place] [id number] Cordelia Diane MD [address] [place] [address] documented as of this encounter Procedures Procedure Name Priority Date/Time Associated Diagnosis Comments 13 COMPOSITE FILLING Routine 2022 12:00 AM EST 12 KALLIE COMPOSITE FILLING Routine 2022 12:00 AM EST 11 F COMPOSITE FILLING Routine 2022 12:00 AM EST 10 F COMPOSITE FILLING Routine 2022 12:00 AM EST 7 F COMPOSITE FILLING Routine 2022 12:00 AM EST 6 F COMPOSITE FILLING Routine 2022 12:00 AM EST 5 DO COMPOSITE FILLING Routine 2022 12:00 AM EST documented in this encounter Visit Diagnoses Not on filedocumented in this encounter Care Teams Health Spa Manager Relationship Specialty Start Date End Date Cordelia Diane MD [address] [place] [id number] PCP - General Family Medicine 11/09/18 documented as of this encounter
--- OUTSIDE RECORDS SUMMARY | 2024-05-17 09:08 | XMS_ITS | Encounter Summary ---
Author Organization [employer] Address [address] [place] [address] Care Team Providers Care Iron Pourer Name Role Phone Cordelia Diane MD Primary Care Provider [phone] Reason for Visit * Reason Comments Med Refill Encounter Details Date Type Department Care Team ([facility] st Contact Info) Description 04/16/2024 Refill [facility]EDS [address] [place], [place] [phone] Cordelia Diane MD [address] [place] [address] Social History Tobacco Use Types Packs/Day Years [...] Upcoming Encounters Date Type Department Care Team ([facility] st Contact Info) Description 06/29/2024 10:15 AM EDT Office Visit [facility] [address] [place] [address] Cordelia Diane MD [address] [place] [address] documented as of this encounter Visit Diagnoses Not on filedocumented in this encounter Additional Health Concerns Assessment Noted Time PHQ-9 Depression Total Score: 15 024 11:25 AM EDT documented as of this encounter Care Teams Iron Pourer Relationship Specialty Start Date End Date Cordelia Diane MD [address] [place] [address] PCP - General Family Medicine 11/09/18 documented as of this encounter
[2024-05-17 09:53] LABS: Vitamin D 25-OH Total 22.2 ng/mL (>30)
== END ==
LOC: HO.CARD 08:25
PROVIDERS: PCP Pediatrics; Visit Provider Internal Medicine Cardiovascular Disease
DX: R06.09 Other forms of dyspnea (principal); R79.89 Other specified abnormal findings of blood chemistry
CPT/HCPCS: 36415; 82306; 93017; J0280; J2785

== ENCOUNTER → 2024-05-17 08:27 | Outpatient (BNV) | payer OTHER, SELFPAY | PROVIDERS: PCP Pediatrics | DX: R06.02 Shortness of breath (principal) | CPT/HCPCS: 78452; 93016; 93018 ==

== ENCOUNTER 2024-06-12 12:24 | Outpatient (AMB) | payer OTHER, SELFPAY ==
--- NOTE | 2024-06-12 12:44 | A.OFFVIS_ITS ---
Vital Signs 06/12/24 12:46 Height 5 ft 7 in Weight 208 lb 1.862 oz BMI 32.6 BP 132/64 Blood Pressure Location Lt brachial Position Sitting Pulse 72 Pulse Source Monitor Intake Visit Reasons: 3m follow up/ stress mibi Intake Note: 3 mth f/up/stress mibi Retail Field Representative Required: Yes Retail Field Representative Language: Charter Boat Captain Name: deepa/citizen [place]/[id number] Accompanied by: Self / Same As Patient Allergies lisinopril [LISINOPRIL] Allergy (Severe, Verified 11/19/23 14:22) ANGIOEDEMA, anaphylaxis, swelling in mouth and face Medication List - Last Reconciled 06/12/24 by Reilly Back MD acetaminophen ER (Arthritis Pain Reliever) 1 tab PO Q8H PRN albuterol sulfate 90 mcg/actuation (ProAir HFA) 2 puffs PO Q4-6H PRN albuterol sulfate 3 mL inhalation TID PRN aripiprazole 1 mg PO QAM aspirin 81 mg PO DAILY citalopram 40 mg PO QAM clonazepam mg PO cyclobenzaprine 10 mg PO TID PRN diclofenac sodium 75 mg PO BID fluticasone propionate 110 mcg/actuation (Flovent HFA) 1 puff PO BID furosemide (Lasix) 40 mg PO DAILY losartan 25 mg PO DAILY mirabegron ER (Myrbetriq) 25 mg PO DAILY 30 days montelukast 10 mg PO BEDTIME pyridoxine (vitamin B6) 100 mg PO DAILY 90 days spironolactone 50 mg PO DAILY HPI Comments Details: 74-year-old female who is here for f/u. She was seen in 2021 for lower extremity edema and dyspnea. She underwent echocardiography which showed grade 1 diastolic dysfunction. She was on gabapentin and amlodipine which are likely reason for lower extremity edema. 03/06/2024: She is here for follow-up after approximately 2 years. Lower extremity edema has improved. She is off the gabapentin and amlodipine. She has dyspnea on exertion which she is saying is due to asthma. She does have known asthma and is taking montelukast and inhalers. Occasionally gets left- sided sharp chest pain which feels like a stabbing sensation. Blood pressure is well controlled. EKGs does not have any dynamic changes. 06/12/2024: She is here for follow-up. On last visit she was complaining of shortness of breath and sharp chest pains. After discussion she was sent for nuclear perfusion imaging. She underwent stress testing in April 2024 which was essentially normal. She returns today and has not been feeling well. She is saying she is coughing and has been short of breath. She also has sharp chest pains when she breathes in. She had vaccination for influenza and COVID. Overall clinical story sounds like she has some sort of viral infection maybe pneumonia going on. [facility] Medical History Anxiety Depression Osteopenia History of diverticulitis Asthma HTN (hypertension) Surgical History History of laryngoscopy Hx of lithotripsy Hx of dilation and curettage S/P right knee arthroscopy Hx of cataract extraction Hx of right knee surgery History of carpal tunnel release of both wrists History of colon resection Hx of colonoscopy Family History Father Liver cancer Brother Liver cancer Sister Liver cancer Mother Fungus disease Social History Housing: Apartment Alcohol intake: never Patient Tobacco Use Status: Former Tobacco user Review of Systems Const Denies chills, Reports fatigue, Denies fever(s), Denies frequent falls, Reports weakness, Denies weight gain and Denies weight loss ENT Denies dizziness Card Reports chest pain, Reports chest pain at rest, Reports chest pain with activity, Denies leg edema, Denies lightheadedness, Denies palpitations, Reports dyspnea and Reports dyspnea on exertion Resp Reports cough, Reports dyspnea and Reports dyspnea on exertion GI Denies hematochezia Musc Denies abnormal gait, Denies muscle weakness, Denies numbness, Denies radiating pain into limb and Denies tingling Neuro Denies abnormal gait, Denies dizziness, Denies frequent falls, Denies numbness, Denies tingling and Reports weakness Endo Reports fatigue and Denies palpitations Physical Exam Vital Signs: Last Vital Signs Pulse 72 06/12/24 12:46 BP 132/64 06/12/24 12:46 BMI result Body Mass Index 32.6 GENERAL APPEARANCE: in no acute distress, pleasant. NECK: no carotid bruit, no jugular venous distention. SKIN: no suspicious lesions, warm and dry. HEART: no murmurs, regular rate and rhythm. LUNGS: clear to auscultation but unable to take deep breath due to pleuritic chest pain. ABDOMEN: soft, nontender. EXTREMITIES: No edema. PERIPHERAL PULSES: equal. NEUROLOGIC: No gross deficits, AAO X 3 Office Procedures EKG Details: Sinus rhythm 72 beats per minute, normal axis, normal ECG, QTC 470 milliseconds. [id number], Complete Results Reviewed Results Reviewed: 05/24/24: 1. Myocardial perfusion imaging study shows likely normal myocardial perfusion 2. Gated LVEF is 67% 3. Transient ischemic dilatation not present Nondiagnostic changes on EKG. Assessment & Plan Assessment & Plan (1) MORGAN (dyspnea on exertion): Code(s): R06.09 - Other forms of dyspnea Category: Medical Plan Pleasant 74 year female who was previously being seen for dyspnea on exertion which was thought to be mostly related to asthma. On last visit we arrange a stress test which was essentially normal. The patient was informed about it. She is complaining of cough, shortness of breath, feeling weakness and pleuritic chest pain. I think she needs chest x-ray and further workup. We are going to send her downstairs to the emergency department for viral panel, chest x-ray and blood workup. If she has any pneumonia then she will be appropriately treated. EKGs in the office is normal. Thank you for allowing me to participate in the care of your patient. Please feel free to contact me if you have any questions. Coding Level of Care Code Est Pt Level 4 (70921) Diagnoses MORGAN (dyspnea on exertion) R06.09 CPT Codes EKG - CPT: 39817-[id number], Complete ([id number])
[2024-06-12 12:46] VITALS: BP 132/64; PULSE 72; BMI 32.6
--- OUTSIDE RECORDS SUMMARY | 2024-06-12 14:24 | XMS_ITS | Encounter Summary ---
Author Organization [employer] Address [address] [facility] [address] [place] [address] Care Team Providers Care Hydraulic Technician Name Role Phone Cordelia Diane MD Primary Care Provider [phone] Reason for Visit * Reason Onset Date Comments Med Change Request 11/23/2023 Encounter Details Date Type Department Care Team ([facility] Contact Info) Description 11/23/2023 Telephone [facility] MED[facility] [address] [place] [address] Cordelia Diane MD [address] [place] [address] Med Change Request Social History Tobacco Use [...] Description 06/29/2024 10:15 AM EDT Office Visit [facility] [address] [place] [address] Cordelia Diane MD [address] [place] [address] documented as of this encounter Visit Diagnoses Not on filedocumented in this encounter Additional Health Concerns Assessment Noted Time PHQ-9 Depression Total Score: 15 024 11:25 AM EDT documented as of this encounter Care Teams Hydraulic Technician Relationship Specialty Start Date End Date Cordelia Diane MD [address] [place] [address] PCP - General Family Medicine 11/09/18 documented as of this encounter
--- OUTSIDE RECORDS SUMMARY | 2024-06-12 14:24 | XMS_ITS | Encounter Summary ---
Author Organization [employer] Address [address] [facility] 7t [place] [address] Care Team Providers Care Learning And Development Consultant Name Role Phone Cordelia Diane MD Primary Care Provider [phone] Encounter Details Date Type Department Care Team ([facility] st Contact Info) Description 06/12/2024 Orders Only GENERIC EXTERNAL DATA DEPARTMENT Provider, Generic External Data Social History Tobacco Use Types Packs/Day Years [...] Upcoming Encounters Date Type Department Care Team ([facility] st Contact Info) Description 06/29/2024 10:15 AM EDT Office Visit [facility] MED [facility] PEDS [address] [place], [place] [phone] Cordelia Diane MD [address] [place], [place] [phone] documented as of this encounter Procedures Procedure Name Priority Date/Time Associated Diagnosis Comments HIGH SENSITIVITY TROPONIN I Routine 06/12/2024 1:49 PM EDT CBC WITH AUTO DIFFERENTIAL Routine 06/12/2024 1:49 PM EDT MAGNESIUM Routine 06/12/2024 1:49 PM EDT COMPREHENSIVE METABOLIC PANEL Routine 06/12/2024 1:49 PM EDT XR CHEST 2 VIEWS Routine 06/12/2024 1:22 PM EDT documented in this encounter Results * High Sensitivity Troponin I (06/12/2024 1:49 PM EDT) TROPONIN I HIGH SENSITIVITY <2.7 <3.5 - 17.0 ng/L [facility] Comment:The Chery high sens itivity Troponin-I results should beused in conjunction with other diagnostic information suchas ECG, clinical observations and information, and patientsymptoms to aid in the diagnosis of CA. 06/12/2024 1:49 PM EDT 06/12/2024 1:53 PM EDT us Generic External Data Provider LAB BLOOD ORDERAB LES Final Result Performing Organization Address City/[facility]/ZIP Co de Phone Number [facility] [address] [place] [phone] * Magnesium (06/12/2024 1:49 PM EDT) Magnesium 1.9 1.6 - 2.6 mg/dL [facility] 06/12/2024 1:49 PM EDT 06/12/2024 1:53 PM EDT Generic External Data Provider LAB BLOOD ORDERAB LES Final Result Performing Organization Address [facility] Co de Phone Number [facility] [address] [place] [phone] * (ABNORMAL) Comprehensive Metabolic Panel (06/12/2024 1:49 PM EDT) Sodium 133(L) 135 - 145 mmol/L [facility] Potassium 4.4 3.3 - 5.1 mmol/L [facility] Chloride 100 96 - 108 mmol/L [facility] Carbon Dioxide 26 22 - 29 mmol/L [facility] Anion Gap 11(L) 12 - 20 [facility] Urea Nitrogen (BUN) 23(H) 9 - 16 mg/dL [facility] Creatinine, Serum 0.80 0.5 - 1.4 mg/dL [facility] Creatinine Clr Calc Pharmacy 74.9 [facility] Comment:Provided height and weight: 170.18 cm,94.347 kg.eGFR (calculated from the MDRD study equation) and eCrCl(calculated from the Cockcroft-Gault equation) are based ondifferent parameters and may not yield comparable results.If eCrCl result is absurd, please check patient'sheight/weight. Estimated Glomerular Filt Rate >60 [facility] Comment:Chronic Kidney Disea se: Estimated GFR < 60 mL/min/1.84l9Myvxfh Kidney Disease: Estimated GFR < 15 mL/min/1.73m2 Glucose 93 60 - 115 mg/dL [facility] Calcium 9.4 8.4 - 10.2 mg/dL [facility] Bilirubin, Total 0.4 0.0 - 1.0 mg/dL [facility] Aspartate Amino Transferase 20 5 - 31 U/L [facility] Alanine Aminotransferase 16 0 - 31 U/L [facility] Total Protein 8.1(H) 6.5 - 8.0 g/dL [facility] Albumin Level 3.8 3.5 - 5.0 g/dL [facility] Alkaline Phosphatase 78 39 - 117 U/L [facility] 06/12/2024 1:49 PM EDT 06/12/2024 1:53 PM EDT us Generic External Data Provider LAB BLOOD ORDERAB LES Final Result [facility] [address] [place] [phone] * (ABNORMAL) CBC auto differential (06/12/2024 1:49 PM EDT) White Blood Count 8.0 4.8 - 10.8 X10*3/uL [facility] Red Blood Count 4.83 4.20 - 5.50 X10*6/uL [facility] Hemoglobin 14.4 12.0 - 16.0 g/dl [facility] Hematocrit 42.2 37.0 - 47.0 % [facility] Mean Corpuscular Volume 87.4 80.0 - 98.0 fL [facility] Mean Corpuscular Hemoglobin 29.8 27.0 - 33.0 pg [facility] Mean Corpuscular HGB Conc 34.1 31.0 - 35.0 g/dl [facility] Red Cell Distribution Width 11.7 11.0 - 16.0 % [facility] Platelet Count 248 160 - 400 X10*3/uL [facility] Mean Platelet Volume 9.5 9.4 - 12.3 fL [facility] Neutrophils Percent Auto 54.1 45 - 73 % [facility] Imm Gran Pct Auto 0.5(H) 0.0 - 0.4 % [facility] Lymphocytes Percent Auto 29.0 20 - 40 % [facility] Monocytes Percent Auto 8.9 2 - 11 % [facility] Eosinophils Percent Auto 6.6(H) 0 - 4 % [facility] Basophils Percent Auto 0.9 0 - 2 % [facility] NRBC Pct Auto 0.0 0.0 - 0.2 /100WBC [facility] Neutrophils Absolute Auto 4.3 2.0 - 8.3 x10*3/uL [facility] Imm Gran Abs Auto 0.04(H) 0.00 - 0.03 X10*3/uL [facility] Lymphocytes Absolute Auto 2.3 1.2 - 4.9 X10*3/uL [facility] Monocytes Absolute Auto 0.7 0.1 - 1.2 X10*3/uL [facility] Eosinophils Absolute Auto 0.5(H) 0.0 - 0.4 X10*3/uL [facility] Basophils Absolute Auto 0.1 0.0 - 0.2 X10*3/uL [facility] NRBC Abs Auto 0.000 0.0 - 0.012 X10*3/uL [facility] 06/12/2024 1:49 PM EDT 06/12/2024 1:53 PM EDT us Generic External Data Provider LAB BLOOD ORDERAB LES Final Result [facility] [address] [place] [phone] * XR Chest 2 Views (06/12/2024 1:22 PM EDT) Anatomical Region Laterality Modality Chest Radiographic Clarita ging 06/12/2024 1:22 PM EDT Narrative 06/12/2024 2:16 PM EDT ? [facility] ?[address] ?[place] [address] ?XRay Report ? Signed ? Patient: Dumont Black,Dionides ?MR#: ?? [id number] ? : 1950 ?Acct:[id number] ? Age/Sex: 74 / F ?ADM Date: 06/12/24 ? Loc: HO.ED ? Attending Dr: ? Ordering Physician: Debbie Vásquez ?? Date of Service: 06/12/24 ?? Procedure(s): XR chest 2V ?? Accession Number(s): [id number] ? cc: Cordelia Diane MD; Debbie Vásquez ? EXAMINATION: ??XR CHEST 2 VIEWS ? HISTORY: cough chest pain ? COMPARISON: Comparison is made with the prior examination dated ?? 11/19/2023. ? FINDINGS: ??PA and lateral views of the chest are submitted. The lungs ?? are expanded and clear. ??There is no pleural effusion, pneumothorax, or ?? pulmonary vascular congestion. ??The heart is normal in size. ??There is ?? degenerative disc disease of the spine. ? XR/XR chest 2V ?? IMPRESSION: ?? No acute cardiopulmonary abnormality. ? Electronically signed by: ??Aly Patton MD ??06/12/2024 02:13 PM EDT ?? RP ? Dictated By: ?Aly Patton MD ? Signed By: ?<Electronically signed by Aly Patton MD in OV> ?06/12/24 1413 ? DD/ 1322 ? TD/TT: 06/12/24 1400 ? Nurse Supervisor: ? Procedure Note Robbie, Image - 06/12/[address] [address] XRay Report Signed Patient: Rosemarie MorelosMR#: [id number] : 2Acct:[id number] Age/Sex: 74 / FADM Date: 06/12/24 Loc: HO.ED Attending Dr: Ordering Physician: Debbie Vásquez Date of Service: 06/12/24 Procedure(s): XR chest 2V Accession Number(s): [id number] cc: Cordelia Diane MD; Debbie Vásquez EXAMINATION: XR CHEST 2 VIEWS HISTORY: cough chest pain COMPARISON: Comparison is made with the prior examination dated 11/19/2023. FINDINGS: PA and lateral views of the chest are submitted. The lungs are expanded and clear. There is no pleural effusion, pneumothorax, or pulmonary vascular congestion. The heart is normal in size. There is degenerative disc disease of the spine. XR/XR chest 2V IMPRESSION: No acute cardiopulmonary abnormality. Electronically signed by: Aly Patton MD 06/12/2024 02:13 PM EDT Dictated By: Aly Patton MD Signed By: <Electronically signed by Aly Patton MD in OV> 06/12/24 1413 DD/ 1322 TD/TT: 06/12/24 1400 Nurse Supervisor: [facility] External Provider IMG XR PROCEDURES Edited Result - Final documented in this encounter Visit Diagnoses Not on filedocumented in this encounter Additional Health Concerns Assessment Noted Time PHQ-9 Depression Total Score: 15 024 11:25 AM EDT documented as of this encounter Care Teams Learning And Development Consultant Relationship Specialty Start Date End Date Cordelia Diane MD [address] [place] [phone] PCP - General Family Medicine 11/09/18 documented as of this encounter
--- OUTSIDE RECORDS SUMMARY | 2024-06-12 14:24 | XMS_ITS | Encounter Summary ---
Author Organization [employer] Address 75 [facility] 7 [place] [address] Care Team Providers Care Ship Scaler Name Role Phone Cordelia Diane MD Primary Care Provider [phone] Reason for Visit * Reason Comments Med Refill Encounter Details Date Type Department Care Team ([facility] st Contact Info) Description 02/13/2024 Refill [facility] MED & PEDS [address] [place] [address] Didi Dutta MD [address] [place] [address] Pruritus; Dry skin Social History Tobacco Use [...] Description 06/29/2024 10:15 AM EDT Office Visit [facility] MED & PEDS [address] [place] [address] Cordelia Diane MD [address] [place] [address] documented as of this encounter Visit Diagnoses Diagnosis Pruritus Unspecified pruritic disorder Dry skin Other symptoms involving skin and integumentary tissues documented in this encounter Additional Health Concerns Assessment Noted Time PHQ-9 Depression Total Score: 15 024 11:25 AM EDT documented as of this encounter Care Teams Ship Scaler Relationship Specialty Start Date End Date Cordelia Diane MD [address] [place] [address] PCP - General Family Medicine 11/09/18 documented as of this encounter
--- OUTSIDE RECORDS SUMMARY | 2024-06-12 14:24 | XMS_ITS | Encounter Summary ---
Author Organization [employer] Address [address] [place] [address] 7 [place] [address] Care Team Providers Care Blacksmith Assistant Name Role Phone Cordelia Diane MD Primary Care Provider [phone] Encounter Details Date Type Department Care Team (Latest Contact Info) Description 12/18/2019 Abstract [facility] CONVERSIONS Dental, Provider, DDS Social History Tobacco [...] Description 06/29/2024 10:15 AM EDT Office Visit [facility] MED & PEDS [address] [place] [address] Cordelia Diane MD [address] [place] [address] documented as of this encounter Visit Diagnoses Not on filedocumented in this encounter Care Teams Blacksmith Assistant Relationship Specialty Start Date End Date Cordelia Diane MD [address] [place] [address] PCP - General Family Medicine 11/09/18 documented as of this encounter
--- OUTSIDE RECORDS SUMMARY | 2024-06-12 14:24 | XMS_ITS | Encounter Summary ---
Author Organization [employer] [facility] Address [address] [place] [address] 7 [place] [address] Care Team Providers Care International Editorial Producer Name Role Phone Cordelia Diane MD Primary Care Provider [phone] Encounter Details Date Type Department Care Team ([facility] Contact Info) Description 2022 Abstract [facility] [address] [place] [address] Dental, Provider, DDS Social History Tobacco Use [...] Upcoming Encounters Date Type Department Care Team ([facility] Contact Info) Description 06/29/2024 10:15 AM EDT Office Visit [facility] MED & PEDS [address] [place], [place] [phone] Cordelia Diane MD [address] [place] [address] documented as of this encounter Procedures Procedure [...] on filedocumented in this encounter Care Teams International Editorial Producer Relationship Specialty Start Date End Date Cordelia Diane MD [address] [place] [phone] PCP - General Family Medicine 11/09/18 documented as of this encounter
--- OUTSIDE RECORDS SUMMARY | 2024-06-12 14:24 | XMS_ITS | Encounter Summary ---
Author Organization [employer] Address [address] [place] [address] 7 [place] [address] Care Team Providers Care Detective Lieutenant Name Role Phone Cordelia Diane MD Primary Care Provider [phone] Encounter Details Date Type Department Care Team (Latest Contact Info) Description 08/28/2021 Abstract [facility] CONVERSIONS Dental, Provider, DDS Social [...] Description 06/29/2024 10:15 AM EDT Office Visit [facility] MED & PEDS [address] [place] [address] Cordelia Diane MD [address] [place] [address] documented as of this encounter Visit Diagnoses Not on filedocumented in this encounter Care Teams Detective Lieutenant Relationship Specialty Start Date End Date Cordelia Diane MD [address] [place] [address] PCP - General Family Medicine 11/09/18 documented as of this encounter
--- OUTSIDE RECORDS SUMMARY | 2024-06-12 14:24 | XMS_ITS | Clinical Summary ---
Author Organization [employer] Address [address] [facility] 7t [place] [address] Care Team Providers Care Wire Drawing Machine Tender Name Role Phone Cordelia Diane MD Primary Care Provider [phone] Allergies Active Allergy Reactions Criticality Noted Date [...] the morning. 30 tablet 11 05/20/19 24 Active ergocalciferol (Vitamin D2) 1.25 MG (37754 UT) capsule Take 1 capsule (1.25 mg) [...] FOR ITCHING 30 tablet 05/16/19 25 Active cholecalciferol (Vitamin D-3) 50 MCG (2000 UT) capsule Take 1 capsule (50 mcg) by mouth Once per day. 90 capsule 3 05/24/19 25 Active hydrOXYzine HCl (Atarax) 10 MG [...] 2 years ago. 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 Discussed to go [...] Encounters Date Type Department Care Team Description 06/12/2024 Orders Only GENERIC EXTERNAL DATA DEPARTMENT Provider, Generic External Data 06/05/2024 Telephone [facility] MED[facility] [address] [facility] [place] [address] Cordelia Diane MD Durable Medical Equipment 05/23/2024 Telephone [facility] MED & PEDS [address] [place] [address] Cordelia Diane MD Results 05/23/2024 Orders Only [facility] MED & PEDS [address] [place] [address] Cordelia Diane MD 05/17/2024 Orders Only [facility] External Provider, [facility] 05/14/2024 Refill [facility] MED & PEDS [address] [place] [address] Cordelia Diane MD Pruritus; Dry skin 04/16/[address] [facility] MED & PEDS [address] [place] [address] Mireya Hemphill MD Pruritus; Dry skin 04/16/2024 Refill [facility] MED & PEDS [address] [place] [address] Cordelia Diane MD 03/17/[address] [facility] MED & PEDS [address] [place] [address] Mireya Hemphill MD Pruritus; Dry skin from [...] is your housing situation today? I have cadenfrank coppola 09/09/[address] you [...] Upcoming Encounters Date Type Department Care Team ([facility] st Contact Info) Description 06/29/2024 10:15 AM EDT Office Visit [facility] MED & PEDS [address] [place] [address] Cordelia Diane MD [address] [place] [address] Health Maintenance Due Date Last Done Comments [...] 02/07/2021, 08/15/2020, Additional history exists Depression Monitoring 03/11/2024 09/09/2023, 024 Depression Screening 09/08/2024 09/09/2023, 09/09/19 24 SDOH [...] topic Meningococcal Vaccine Aged Out No lyle hcad eligible based on patient's age to complete this topic RSV under 20 months Aged Out No longe r eligible based on patient's age to complete this topic Rotavirus Vaccines Aged Out No longer eligible based on patient's age to complete this topic Procedures Procedure Name Priority Date/Time Associated Diagnosis Comments HIGH SENSITIVITY TROPONIN I Routine 06/12/2024 1:49 PM EDT MAGNESIUM Routine 06/12/2024 1:49 PM EDT COMPREHENSIVE METABOLIC PANEL Routine 06/12/2024 1:49 PM EDT CBC WITH AUTO DIFFERENTIAL Routine 06/12/2024 1:49 PM EDT XR CHEST 2 VIEWS Routine 06/12/2024 1:22 PM EDT STRESS TEST WITH MYOCARDIAL PERFUSION Routine 05/17/2024 10:26 AM EDT VITAMIN D,25-OH,TOTAL,IA Routine 05/17/2024 8:40 AM EDT Low vitamin D level BI MAMMOGRAM SCREENING TOMOSYNTHESIS BILATERAL Routine 01/25/2024 [...] Recently Relevant to Health Maintenance Results * High Sensitivity Troponin I (06/12/2024 1:49 PM EDT) Pathologist [facility] TROPONIN I HIGH SENSITIVITY <2.7 <3.5 - 17.0 ng/L [facility] Comment:The Chery high sens itivity Troponin-I results should beused in conjunction with other diagnostic information suchas ECG, clinical observations and information, and patientsymptoms to aid in the diagnosis of PA. 06/12/2024 1:49 PM EDT 06/12/2024 1:53 PM EDT us Generic External Data Provider LAB BLOOD ORDERAB LES Final Result [facility] [address] [place] [address] [phone] * (ABNORMAL) CBC auto differential (06/12/2024 1:49 PM EDT) White Blood Count 8.0 4.8 - 10.8 X10*3/uL [facility] Red Blood Count 4.83 4.20 - 5.50 X10*6/uL [facility] Hemoglobin 14.4 12.0 - 16.0 g/dl [facility] Hematocrit 42.2 37.0 - 47.0 % [facility] Mean Corpuscular Volume 87.4 80.0 - 98.0 fL [facility] Mean Corpuscular Hemoglobin 29.8 27.0 - 33.0 pg [facility] Mean Corpuscular HGB Conc 34.1 31.0 - 35.0 g/dl [facility] Red Cell Distribution Width 11.7 11.0 - 16.0 % [facility] Platelet Count 248 160 - 400 X10*3/uL [facility] Mean Platelet Volume 9.5 9.4 - 12.3 fL [facility] Neutrophils Percent Auto 54.1 45 - 73 % [facility] Imm Gran Pct Auto 0.5(H) 0.0 - 0.4 % [facility] Lymphocytes Percent Auto 29.0 20 - 40 % [facility] Monocytes Percent Auto 8.9 2 - 11 % [facility] Eosinophils Percent Auto 6.6(H) 0 - 4 % [facility] Basophils Percent Auto 0.9 0 - 2 % [facility] NRBC Pct Auto 0.0 0.0 - 0.2 /100WBC [facility] Neutrophils Absolute Auto 4.3 2.0 - 8.3 x10*3/uL [facility] Imm Gran Abs Auto 0.04(H) 0.00 - 0.03 X10*3/uL [facility] Lymphocytes Absolute Auto 2.3 1.2 - 4.9 X10*3/uL [facility] Monocytes Absolute Auto 0.7 0.1 - 1.2 X10*3/uL [facility] Eosinophils Absolute Auto 0.5(H) 0.0 - 0.4 X10*3/uL [facility] Basophils Absolute Auto 0.1 0.0 - 0.2 X10*3/uL [facility] NRBC Abs Auto 0.000 0.0 - 0.012 X10*3/uL [facility] 06/12/2024 1:49 PM EDT 06/12/2024 1:53 PM EDT us Generic External Data Provider LAB BLOOD ORDERAB LES Final Result Performing Organization Address City/[facility]/ZIP Co de Phone Number [facility] [address] [place] [address] [phone] * Magnesium (06/12/2024 1:49 PM EDT) Pathologist [facility] Magnesium 1.9 1.6 - 2.6 mg/dL [facility] 06/12/2024 1:49 PM EDT 06/12/2024 1:53 PM EDT Generic External Data Provider LAB BLOOD ORDERAB LES Final Result Performing Organization Address [facility] Co de Phone Number [facility] [address] [place] [address] [phone] * (ABNORMAL) Comprehensive Metabolic Panel (06/12/2024 1:49 PM EDT) Pathologist [facility] Sodium 133(L) 135 - 145 mmol/L [facility] Potassium 4.4 3.3 - 5.1 mmol/L [facility] Chloride 100 96 - 108 mmol/L [facility] Carbon Dioxide 26 22 - 29 mmol/L [facility] Anion Gap 11(L) 12 - 20 [facility] Urea Nitrogen (BUN) 23(H) 9 - 16 mg/dL [facility] Creatinine, Serum 0.80 0.5 - 1.4 mg/dL [facility] Creatinine Clr Calc Pharmacy 74.9 [facility] Comment:Provided height and weight: 170.18 cm,94.347 kg.eGFR (calculated from the MDRD study equation) and eCrCl(calculated from the Cockcroft-Gault equation) are based ondifferent parameters and may not yield comparable results.If eCrCl result is absurd, please check patient'sheight/weight. Estimated Glomerular Filt Rate >60 [facility] Comment:Chronic Kidney Disea se: Estimated GFR < 60 mL/min/1.59q6Ofothp Kidney Disease: Estimated GFR < 15 mL/min/1.73m2 Glucose 93 60 - 115 mg/dL [facility] Calcium 9.4 8.4 - 10.2 mg/dL [facility] Bilirubin, Total 0.4 0.0 - 1.0 mg/dL [facility] Aspartate Amino Transferase 20 5 - 31 U/L [facility] Alanine Aminotransferase 16 0 - 31 U/L [facility] Total Protein 8.1(H) 6.5 - 8.0 g/dL [facility] Albumin Level 3.8 3.5 - 5.0 g/dL [facility] Alkaline Phosphatase 78 39 - 117 U/L [facility] 06/12/2024 1:49 PM EDT 06/12/2024 1:53 PM EDT us Generic External Data Provider LAB BLOOD ORDERAB LES Final Result [facility] [address] [place] [address] [phone] * XR Chest 2 Views (06/12/2024 1:22 PM EDT) Anatomical Region Laterality Modality Chest Radiographic Clarita ging 06/12/2024 1:22 PM EDT Narrative 06/12/2024 2:16 PM EDT ? [facility] ?[address] [facility]. ?[place] [address] ?XRay Report ? Signed ? Patient: Dumont Black,Dionides ?MR#: ?? [id number] ? : 1950 ?Acct:[id number] ? Age/Sex: 74 / F ?ADM Date: 04/14/25 ? Loc: HO.ED ? Attending Dr: ? Ordering Physician: Debbie Vásquez ?? Date of Service: 06/12/24 ?? Procedure(s): XR chest 2V ?? Accession Number(s): [id number] ? cc: Cordelia Diane MD; Debbie Vásquez [...] ??Aly Patton MD ??06/12/2024 02:13 PM EDT ? Dictated By: ?Aly Patton MD ? Signed By: ?<Electronically signed by Aly Patton MD in OV> ?06/12/24 1413 ? DD/ 1322 ? TD/TT: 06/12/24 1400 ? Software Tools Build Engineer: ? Procedure Note Robbie, Image - 06/12/2024 [place] [address] XRay Report Signed Patient: Rosemarie MorelosMR#: [id number] : 1950cct:[id number] Age/Sex: 74 / FADM Date: 06/12/24 Loc: HO.ED Attending Dr: Ordering Physician: Debbie Vásquez Date of Service: 06/12/24 Procedure(s): XR chest 2V Accession Number(s): [id number] cc: Cordelia Diane MD; Debbie Vásquez EXAMINATION: [...] 06/12/24 1413 DD/ 1322 TD/TT: 06/12/24 1400 Software Tools Build Engineer: us [facility] External Provider IMG XR PROCEDURES Edited Result - Final * Stress test with myocardial perfusion (05/17/2024 10:26 AM EDT) 05/17/2024 10:2 6 AM EDT Narrative [facility] - 05/24/2024 3:37 PM EDT ? [facility] ?[address] ?[place], [place] [address] ?Nuclear Medicine Report ? Signed ? Patient: Rosemarie Morelos ?MR#: ?? [id number] ? : 1950 ?Acct:[id number] ? Age/Sex: 74 / F ?ADM Date: 05/17/24 ? Loc: HO.CARD ? Attending Dr: Reilly Back MD ? Ordering Physician: Reilly Back MD ?? Date of Service: 05/17/24 ?? Procedure(s): NM cardiolite stress test ?? Accession Number(s): [id number] ? cc: Cordelia Diane MD; Reilly Back MD ? Lexiscan Myocardial perfusion study ? Indication: ?? Shortness of breath to evaluate for myocardial ischemia ? Technique: ? The patient was brought in for a Lexiscan perfusion study on May 17, ?? 2024 and was injected 0.4 mg of Lexiscan intravenously. Within a minute ?? of this injection 30 mCi of sestamibi was given intravenously. Images ?? were obtained using the SPECT gamma camera interlaced with the gating ?? device. Images were obtained in supine position. ? Resting perfusion study was performed on May 24, 2024. Patient was ?? administered 30 mCi of sestamibi intravenously at rest. Images were ?? then obtained in supine position. ? Images obtained without without CT attenuation. Total DLP 203 mGy-cm. ? Images were processed with the software and compared side to side in ?? short axis, horizontal long axis and vertical long axis views. ? Findings: ? The stress perfusion study showed ??nonattenuated images show no ?? significant defects in radiotracer uptake in any segments of the LV ?? myocardium. There is slight nodularity to overall uptake which may ?? suggest minimal motion artifact. Attenuated corrected images show ?? mildly reduced uptake in the apex of the LV myocardium. The gated study ?? shows normal LV systolic function with calculated LVEF of 68%. LV ?? cavity is normal in size. The gated study shows normal systolic ??wall ?? thickening and contraction of segments. ?? Resting study shows nonattenuated images show normal uptake ordered ?? images in all segments of the LV myocardium. Gating at rest reveals ?? normal systolic wall motion with ejection fraction at 67%. ? The findings are consistent with likely normal myocardial perfusion. ? NM/NM cardiolite stress test ?? Impression: ? 1. ??Myocardial perfusion imaging study shows likely normal myocardial ?? perfusion ?? 2. ??Gated LVEF is 67% ?? 3. Transient ischemic dilatation not present ? Nondiagnostic changes on EKG. ? Electronically signed by: ??Terrence Adamson MD ??05/24/2024 03:34 PM EDT RP ? Dictated By: ?Terrence Adamson MD ? Signed By: ?<Electronically signed by Terrence Adamson MD in OV> ?05/24/24 1534 ? DD/ 1026 ? TD/TT: 05/24/24 1420 ? Software Tools Build Engineer: ? Procedure Note Robbie, Image - 05/24/[address] [address] Nuclear Medicine Report Signed Patient: Rosemarie MorelosMR#: [id number] : 2Acct:[id number] Age/Sex: 74 / FADM Date: 05/17/24 Loc: TATI Attending Dr: Reilly Back MD Ordering Physician: Reilly Back MD Date of Service: 05/17/24 Procedure(s): GA cardiolite stress test Accession Number(s): [id number] cc: Cordelia Diane MD; Reilly Back MD Lexiscan Myocardial perfusion study Indication: Shortness of breath to evaluate for myocardial ischemia Technique: The patient was brought in for a Lexiscan perfusion study on May 17, 2024 and was injected 0.4 mg of Lexiscan intravenously. Within a minute of this injection 30 mCi of sestamibi was given intravenously. Images were obtained using the SPECT gamma camera interlaced with the gating device. Images were obtained in supine position. Resting perfusion study was performed on May 24, 2024. Patient was administered 30 mCi of sestamibi intravenously at rest. Images were then obtained in supine position. Images obtained without without CT attenuation. Total DLP 203 mGy-cm. Images were processed with the software and compared side to side in short axis, horizontal long axis and vertical long axis views. Findings: The stress perfusion study showed nonattenuated images show no significant defects in radiotracer uptake in any segments of the LV myocardium. There is slight nodularity to overall uptake which may suggest minimal motion artifact. Attenuated corrected images show mildly reduced uptake in the apex of the LV myocardium. The gated study shows normal LV systolic function with calculated LVEF of 68%. LV cavity is normal in size. The gated study shows normal systolic wall thickening and contraction of segments. Resting study shows nonattenuated images show normal uptake ordered images in all segments of the LV myocardium. Gating at rest reveals normal systolic wall motion with ejection fraction at 67%. The findings are consistent with likely normal myocardial perfusion. NM/NM cardiolite stress test Impression: 1. Myocardial perfusion imaging study shows likely normal myocardial perfusion 2. Gated LVEF is 67% 3. Transient ischemic dilatation not present Nondiagnostic changes on EKG. Electronically signed by: Terrence Adamson MD 05/24/2024 03:34 PM EDT Dictated By: Terrence Adamson MD Signed By: <Electronically signed by Terrence Adamson MD in OV> 05/24/24 1534 DD/ 1026 TD/TT: 05/24/24 1420 Software Tools Build Engineer: us [facility] External Provider CV STRE SS PROCEDURES Final Result [facility] [address] [place] [phone] * (ABNORMAL) Vitamin D, 25-Hydroxy, Total, Immunoassay (05/17/2024 8:40 AM EDT) Vitamin D 25-OH Total 22.2(L) >30 ng/mL [facility] Comment: Health Based Reference Values*< 20 ??ng/mL ??Wtrocxulo84-01 ng/mL ??Insufficient> 30 ??ng/mL ??Sufficient*Wiley BRODERICK. N Engl J Med. 2007;357:266-280There is no well-established upper level of normal vitamin Dlevels. Some laboratories use 50 ng/mL as an upper limit ofnormal. However, toxicity is patient-dependent and may occurat any level. Careful correlation with the patient'spresentation is necessary and, if there is concern forvitamin D toxicity, treatment should be consideredirrespective of the serum level.Care must be taken in interpreting Vitamin D results fromdifferent laboratories and methodologies. ??Published datademonstrated that results from patients undergoinghemodialysis may show a negative bias when tested withvarious automated 25-OH vitamin D assays when compared toLC- MS/MS.When testing samples from patients whose predominant form ofVitamin D is Vitamin D2, such as patients receiving VitaminD2 supplementation, results that are subtherapeutic shouldbe confirmed with another method such as LC-MS/MS. Blood Venous blood specimen / Unknown 05/17/2024 8:40 AM EDT 05/17/2024 8:40 AM EDT us Cordelia Diane MD LAB BLOOD ORDERABLES Final Re sult [facility] [address] [place] [address] [phone] * BI Mammogram Screening Tomosynthesis Bilateral (01/25/2024 10:30 AM EST) Anatomical Region Laterality Modality Breast Bilateral Mammography 01/25/2024 10:3 0 AM EST Narrative 02/03/2024 12:20 PM EST ? [facility] ? [address] ?[place] [address] ? Mammography Report ? Signed ? Patient: Dumont Black,Dionides ?MR#: ?? [id number] ? : 1950 ?Acct:[id number] ? Age/Sex: 73 / F ?ADM Date: 01/25/24 ? Loc: HO.MAMMO ? Attending Dr: Cordelia Diane MD ? Ordering Physician: Cordelia Diane MD ?Results: 1Ne ?? gative ? Date of Service: 01/25/24 ?Follow Up: 1 Year From Orig ?? inal Mammogram ? Procedure(s): MM tomosynthesis screening BI ?? Accession Number(s): [id number] ? cc: Cordelia Diane MD ? EXAMINATION: [...] ??Marisol Hassan DO ??02/03/2024 12:18 PM EST ?? RP ? Dictated By: ?Marisol Hassan DO ? Signed By: ?<Electronically signed by Marisol Hassan, DO in OV> ? 02/03/24 1218 ? DD/ 1030 ? TD/TT: 01/25/24 1045 ? Software Tools Build Engineer: ? Procedure Note Dontreva, Image - 02/03/2024 [facility] [address] [place] [address] Mammography Report Signed Patient: Rosemarie MorelosMR#: [id number] : 2Acct:[id number] Age/Sex: 73 / FADM Date: 01/25/24 Loc: HO.MAMMO Attending Dr: Cordelia Diane MD Ordering Physician: Cordelia Diane MDResults: 1Ne gative Date of Service: 01/25/24Follow Up: 1 Year From Orig inal Mammogram Procedure(s): MM tomosynthesis screening BI Accession Number(s): [id number] cc: Cordelia Diane MD EXAMINATION: MM SCREENING [...] 02/03/24 1218 DD/ 1030 TD/TT: 01/25/24 1045 Software Tools Build Engineer: Cordelia Diane MD IMG BI PROCEDURES Edited Resu lt - Final * (ABNORMAL) Lipid Panel, Standard (05/20/2023 10:37 AM EDT) Triglycerides 102 <150 mg/dL [facility] Comment:Desirable Triglyceri de: less than 150 mg/dLBorderline High Triglyceride 150-199 mg/dLHigh Triglyceride: 200-499 mg/dLVery High Triglyceride: greater than or equal to 5OO mg/dL Cholesterol 179 <200 mg/dL [facility] Comment:Desirable Cholestero l: less than 200 mg/dLBorderline High Cholesterol: 200-239 mg/dLHigh Cholesterol: greater than 239 mg/dL LDL Cholesterol Calculated 114(H) <100 mg/dL [facility] Comment:Desirable LDL: less than 100 mg/dLNear Optimal/Above Optimal LDL: 110- 129 mg/dLBorderline High LDL: 130-159 mg/dLHigh LDL: 160-189 mg/dLVery High LDL: greater than or equal to 190 mg/dL HDL Cholesterol 45 >40 mg/dL [facility] Comment:Desirable HDL: great er than 40 mg/dL Note: This HDL assay may give artificially low results in patients with liver disease. Blood Venous blood specimen / Unknown 05/20/2023 10:37 AM EDT 05/20/2023 2:45 PM EDT us Cordelia Diane MD LAB BLOOD ORDERABLES Final Re sult [facility] [address] [place] [address] [phone] * Fecal Immunochemical Test (09/24/2022) Fecal Immunochemical Test Nonreactive Stool Rectal contents / Unknown 09/24/2022 Christie Resendiz RN - 09/24/2022 See scanned report, Normal FIT test Historical Provider HEALTH MAINTENANCE Final Result from Last 3 Months or Most Recently Relevant to Health Maintenance [place] [address] [place] [address] - [facility] Care Teams Wire Drawing Machine Tender Relationship Specialty Start Date End Date Cordelia Diane MD [address] [place] [phone] PCP - General Family Medicine 11/09/18
--- OUTSIDE RECORDS SUMMARY | 2024-06-12 14:24 | XMS_ITS | Encounter Summary ---
Author Organization [employer] Address [address] [place] [address] 7 [place] [address] Care Team Providers Care Negative Turner Apprentice Name Role Phone Cordelia Diane MD Primary Care Provider Encounter Details Date Type Department Care Team (Latest Contact Info) Description 01/03/2019 Abstract [facility] CONVERSIONS Dental, Provider, DDS Social [...] Description 06/29/2024 10:15 AM EDT Office Visit [facility] CHC MED & PEDS [address] [place] [address] Cordelia Diane MD [address] [place] [address] documented as of this encounter Visit Diagnoses Not on filedocumented in this encounter Care Teams Negative Turner Apprentice Relationship Specialty Start Date End Date Cordelia Diane MD [address] [place] [address] PCP - General Family Medicine 11/09/18 documented as of this encounter
--- OUTSIDE RECORDS SUMMARY | 2024-06-12 14:24 | XMS_ITS | Encounter Summary ---
Author Organization [employer] Address [address] [place] [address] 7t [place] [address] Care Team Providers Care Beam Department Supervisor Name Role Phone Cordelia Diane MD Primary Care Provider Encounter Details Date Type Department Care Team ([facility] Contact Info) Description 09/03/2022 Orders Only [facility] MED & PEDS [address] [place] [address] Jo Caba LPN Social History Tobacco Use [...] Upcoming Encounters Date Type Department Care Team ([facility] Contact Info) Description 06/29/2024 10:15 AM EDT Office Visit [facility] MED & PEDS [address] [place] [address] Cordelia Diane MD [address] [place] [address] documented as of this encounter Visit Diagnoses Not on filedocumented in this encounter Additional Health Concerns Assessment Noted Time PHQ-9 Depression Total Score: 1 05/30/19 23 9:53 AM EDT documented as of this encounter Care Teams Beam Department Supervisor Relationship Specialty Start Date End Date Cordelia Diane MD [address] [place] [address] PCP - General Family Medicine 11/09/18 documented as of this encounter
== END 2024-06-12 13:04 | disposition home or self-care (01) ==
LOC: HO.HCS 12:30
PROVIDERS: PCP Pediatrics; Visit Provider Internal Medicine Cardiovascular Disease
DX: R06.09 Other forms of dyspnea (principal)
CPT/HCPCS: 93010; 99214

== ENCOUNTER 2024-06-12 13:10 | Emergency (ER) | payer OTHER, SELFPAY ==
--- NOTE | ~2024-06-12 | XR_ITS ---
EXAMINATION: XR CHEST 2 VIEWS HISTORY: cough chest pain COMPARISON: Comparison is made with the prior examination dated 11/19/2023. FINDINGS: PA and lateral views of the chest are submitted. The lungs are expanded and clear. There is no pleural effusion, pneumothorax, or pulmonary vascular congestion. The heart is normal in size. There is degenerative disc disease of the spine. XR/XR chest 2V IMPRESSION: No acute cardiopulmonary abnormality. Electronically signed by: Aly Patton MD 06/12/2024 02:13 PM EDT
--- NOTE | 2024-06-12 13:14 | ECG_ITS ---
Test Reason : chest pain Blood Pressure : */* mmHG Vent. Rate : 65 BPM Atrial Rate : 65 BPM P-R Int : 192 ms QRS Dur : 86 ms QT Int : 454 ms P-R-T Axes : 32 40 49 degrees QTcB Int : 472 ms Normal sinus rhythm Normal ECG When compared with ECG of 19-Nov-2023 14:29, No significant change was found Referred By: Generic ED Physician Electronically Signed By: LESIA SANDS MD
[2024-06-12 13:21] VITALS: BP 133/87; PULSE 73; RESP 17; TEMP 36.6; O2SAT 99; BMI 32.6
--- NOTE | 2024-06-12 13:22 | ED.GENADULT ---
HPI - General Adult General Chief complaint: General Medical Stated complaint: Chest Pain Not Feeling Well Time Seen by Provider: 06/12/24 23:28 Source: patient and family ( Son who speaks Pashto and Polish) Mode of arrival: ambulatory Limitations: language barrier (Polish speaking only) History of Present Illness ED Provider: Dr. Neal Vergara HPI narrative: 74-year-old female with history of hypertension, asthma, depression, anxiety, peripheral edema who presents emergency department for evaluation of productive cough with bloody sputum, rhinorrhea which is occasionally bloody, chest pain, shortness of breath, right ear pain. Patient states that she has had these symptoms for approximately 1.5 weeks and the symptoms have gotten worse over the past 1-2 days. She states she has a constant, right ear pain with no loss of hearing. She states that she has a persistent cough which seems to be worse at night, productive of thick yellow phlegm with occasional blood in the phlegm. She also states that she has rhinorrhea and sometimes when she blows her nose she notes blood in the rhinorrhea as well. Patient states that she is having midsternal chest pain which is worse with coughing. Patient feels short of breath but denied dyspnea on exertion. She denied fever, chills, nausea, vomiting, diarrhea. Related Data Home Medications ?Medication ?Instructions ?Recorded ?Confirmed acetaminophen 650 mg 1 tab PO Q8H PRN Pain 02/06/20 06/12/24 tablet,extended release (Arthritis Pain Reliever) albuterol sulfate 2.5 mg/3 mL 3 ml inhalation TID PRN muscle 02/06/20 06/12/24 (0.083 %) solution for nebulization spasm albuterol sulfate 90 mcg/actuation 2 puff PO Q4-6H PRN Shortness Of 02/06/20 06/12/24 aerosol inhaler (ProAir HFA) Breath Or Wheezing fluticasone propionate 110 1 puff PO BID 02/06/20 06/12/24 mcg/actuation HFA aerosol inhaler (Flovent HFA) aspirin 81 mg tablet,delayed 81 mg PO DAILY 10/22/21 06/12/24 release citalopram 40 mg tablet 40 mg PO QAM 10/22/21 06/12/24 montelukast 10 mg tablet 10 mg PO BEDTIME 10/22/21 06/12/24 aripiprazole 2 mg tablet 1 mg PO QAM 07/15/22 06/12/24 clonazepam 0.5 mg tablet mg PO 03/06/24 06/12/24 losartan 25 mg tablet 25 mg PO DAILY 06/12/24 06/12/24 spironolactone 50 mg tablet 50 mg PO DAILY 06/12/24 06/12/24 Previous Rx's ?Medication ?Instructions ?Recorded cyclobenzaprine 10 mg tablet 10 mg PO TID PRN muscle spasm #14 07/09/20 tabs diclofenac sodium 75 mg 75 mg PO BID #60 tabs 09/17/20 tablet,delayed release pyridoxine (vitamin B6) 100 mg 100 mg PO DAILY 90 days #90 tabs 08/26/22 tablet mirabegron 25 mg tablet,extended 25 mg PO DAILY 30 days #30 tabs 02/24/23 release 24 hr (Myrbetriq) furosemide 40 mg tablet (Lasix) 40 mg PO DAILY #3 tabs 11/19/23 acetaminophen 500 mg tablet 1,000 mg (2 x 500 mg) PO Q6H PRN 06/13/24 (Tylenol Extra Strength) fever or pain #20 tabs albuterol sulfate 90 mcg/actuation 2 puff inhalation Q4-6H PRN 06/13/24 aerosol inhaler (Ventolin HFA) shortness of breath or wheezing #8.5 grams amoxicillin 500 mg capsule 1,000 mg (2 x 500 mg) PO TID 5 06/13/24 days #30 caps doxycycline hyclate 100 mg tablet 100 mg PO Q12H 5 days #10 tabs 06/13/24 Allergies Allergy/AdvReac Type Severity Reaction Status Date / Time lisinopril [LISINOPRIL] Allergy Severe ANGIOEDEMA, Verified 06/12/24 13:23 anaphylaxis, swelling in mouth and face Review of Systems Review of Systems: Yes all other systems are reviewed and are negative [facility] Past Medical History [facility] Narrative: Social history: She denies tobacco, alcohol and drug use. Medical History Anxiety Depression Osteopenia History of diverticulitis Asthma HTN (hypertension) Surgical History History of laryngoscopy Hx of lithotripsy Hx of dilation and curettage S/P right knee arthroscopy Hx of cataract extraction Hx of right knee surgery History of carpal tunnel release of both wrists History of colon resection Hx of colonoscopy Family History Family History Father Liver cancer Brother Liver cancer Sister Liver cancer Mother Fungus disease Social History Social History Housing: Apartment Alcohol intake: never Patient Tobacco Use Status: Former Tobacco user Advance Directives: No Advance Directives Information Provided: Yes Do you have a plan to hurt others: No Plan Physical Exam ED Vital Signs: Vital Signs - 24 hr 06/12/24 13:21 06/12/24 21:53 06/12/24 22:52 Temperature 98 F 97.9 F 98.4 F Pulse Rate 73 65 94 Respiratory Rate 17 16 19 Blood Pressure 133/87 141/79 H 148/76 H Pulse Oximetry 99 95 99 Oxygen Delivery Method Room Air Room Air Room Air 06/13/24 01:41 Temperature 98.4 F Pulse Rate 94 Respiratory Rate 19 Blood Pressure 148/76 H Pulse Oximetry 99 Oxygen Delivery Method Room Air BMI result Body Mass Index 32.6 vital signs were normal except for elevated blood pressures Exam: General: Awake, alert in no distress Head: Normocephalic, atraumatic EENT: PERRL, Lids normal, sclera normal, conjunctiva normal, nose normal , ears normal, throat without erythema or exudates Neck: Supple, no adenopathy Lung: breath sounds symmetric, no wheezing, rales or rhonchi Chest: symmetric movement, nontender Heart: regular rate and rhythm, normal S1, S2 no murmurs or rubs Abdomen: soft, non-tender, nondistended, normal bowel sounds Back: no vertebral tenderness, no CVAT Extremities: no deformities, moves all extremities symmetrically Neuro: Awake, alert, oriented, normal speech, cranial nerves intact, moves all extremities symmetrically Psych: Pleasant, cooperative Course Course Course Narrative: This is a Rapid Medical Examination (RME) performed by Katherin Vásquez PA-C in triage. Full HPI, ROS, assessment and treatment plan per primary provider in the Main ED. 06/12/24 1324 [facility] Sheth Hx: 74 yo female here w/ headache, congestion, productive cough, chest pain, right ear pain. Reports blood in her phlegm and nasal discharge. PE/vitals: Right EAC mildly erythematous, edematous. Pain on manipulation of right pinna. TM intact without effusion. No mastoid tenderness. Plan: Viral swabs, chest x-ray, labs, ekg Medications Administered Discontinued Medications Generic Name Dose Route Start Last Admin Trade Name Yana PRN Reason Stop Dose Admin Acetaminophen 975 mg 06/13/24 01:27 06/13/24 01:38 Acetaminophen 325 Mg Tablet PO 06/13/24 01:28 975 mg ONCE ONE Administration Amoxicillin 1,000 mg 06/13/24 01:27 06/13/24 01:37 Amoxicillin 500 Mg Capsule PO 06/13/24 01:28 1,000 mg ONCE ONE Administration Doxycycline Monohydrate 100 mg 06/13/24 01:27 06/13/24 01:37 Doxycycline Monohydrate 100 Mg Capsule PO 06/13/24 01:28 100 mg ONCE ONE Administration Medical Decision Making Medical Decision Making [facility] Narrative: 74-year-old female with history of hypertension, asthma, depression, anxiety, peripheral edema who presents emergency department for evaluation of productive cough with bloody sputum, rhinorrhea which is occasionally blood when she blows her nose, midsternalchest pain, shortness of breath, right ear pain x1 0.5 weeks with symptoms getting worse over the past 1-2 days. Vital signs revealed elevated blood pressures otherwise unremarkable. Physical examination was unremarkable. Differential diagnosis: Includes but is not limited to Pneumonia, bronchitis,hemoptysis,viral syndrome, COVID-19, influenza, RSV, myocardial infarction, myocardial ischemia, costochondritis, pleuritic chest pain, anemia, electrolyte abnormalities Course: My independent interpretation patient's laboratory evaluation is as follows: CBC was normal. Sodium low 133. BUN elevated 23. The LFTs were normal. Troponin below detectable limits. COVID-19, influenza and RSV tests were negative. Patient's chest x-ray did not reveal any acute infiltrates. Given the patient's persistent symptoms, hemoptysis and chest pain a concerned the patient may have an atypical pneumonia versus acute bronchitis. The patient was given prescriptions for amoxicillin 1000 mg 3 times a day for 5 days and doxycycline 100 mg twice a day for 5 days. She was given her 1st dose of these medications here in the emergency department. She was also given Tylenol 975 mg orally for her your pain and chest pain. Patient reports a history of asthma but does not have an albuterol inhaler. She states she does take Singulair. Patient was given prescription for albuterol inhaler 2 puffs every 4-6 hours as needed for cough or wheezing. She was given printed and verbal instructions and discharged home Admission/Observation Consideration of admission/observation: Escalation of care including admission/observation considered ( yes) Lab Data [facility] Lab Attestation statement: I reviewed the patient's lab results. 06/12/24 13:49 06/12/24 13:49 Labs: Lab Results 06/12/24 Range/Units 13:49 WBC 8.0 (4.8-10.8) X10*3/uL RBC 4.83 (4.20-5.50) X10*6/uL Hgb 14.4 (12.0-16.0) g/dl Hct 42.2 (37.0-47.0) % MCV 87.4 (80.0-98.0) fL MCH 29.8 (27.0-33.0) pg MCHC 34.1 (31.0-35.0) g/dl RDW 11.7 (11.0-16.0) % Plt Count 248 (160-400) X10*3/uL MPV 9.5 (9.4-12.3) fL Immature Gran % (Auto) 0.5 H (0.0-0.4) % Neut % (Auto) 54.1 (45-73) % Lymph % (Auto) 29.0 (20-40) % [place] % (Auto) 8.9 (2-11) % Eos % (Auto) 6.6 H (0-4) % Baso % (Auto) 0.9 (0-2) % Lymph # (Auto) 2.3 (1.2-4.9) X10*3/uL [place] # (Auto) 0.7 (0.1-1.2) X10*3/uL Eos # (Auto) 0.5 H (0.0-0.4) X10*3/uL Baso # (Auto) 0.1 (0.0-0.2) X10*3/uL Abs Immat Gran (auto) 0.04 H (0.00-0.03) X10*3/uL Absolute Neuts (auto) 4.3 (2.0-8.3) x10*3/uL Absolute Nucleated RBC 0.000 (0.0-0.012) X10*3/uL Nucleated RBC % (auto) 0.0 (0.0-0.2) /100WBC Sodium 133 L (135-145) mmol/L Potassium 4.4 (3.3-5.1) mmol/L Chloride 100 (96-108) mmol/L Carbon Dioxide 26 (22-29) mmol/L Anion Gap 11 L (12-20) BUN 23 H (9-16) mg/dL Creatinine 0.80 (0.5-1.4) mg/dL Estim Creat Clear Calc 74.9 Estimated GFR > 60 Random Glucose 93 (60-115) mg/dL Calcium 9.4 (8.4-10.2) mg/dL Magnesium 1.9 (1.6-2.6) mg/dL Total Bilirubin 0.4 (0.0-1.0) mg/dL AST 20 (5-31) U/L ALT 16 (0-31) U/L Alkaline Phosphatase 78 (39-117) U/L Troponin I High Sens < 2.7 (<3.5-17.0) ng/L Total Protein 8.1 H (6.5-8.0) g/dL Albumin 3.8 (3.5-5.0) g/dL Influenza Type A (PCR) NEGATIVE (Negative) Influenza Type B (PCR) NEGATIVE (Negative) RSV RNA Qual (PCR) NEGATIVE (Negative) SARS-CoV-2 RNA (RT-PCR) NEGATIVE (Negative) Independent Interpretation I performed an independent interpretation of an: EKG and Plain X-Ray Interpretation: My independent interpretation patient's 12 EKG done at 06/12/2024 at 13:14 hours is as follows: Normal sinus rhythm with a rate of 65, normal SD interval, QRS duration QTC interval, no significant ST segment elevation, no significant ST segment depression, no PACs, no PVCs My independent interpretation patient's two view chest x-ray is as follows: No acute disease Radiology Impression Discussion of test interpretation with radiology: I have reviewed the radiologist's reading. Radiologist Impression: XR CHEST 2 VIEWS HISTORY: cough chest pain COMPARISON: Comparison is made with the prior examination dated 11/19/2023. FINDINGS: PA and lateral views of the chest are submitted. The lungs are expanded and clear. There is no pleural effusion, pneumothorax, or pulmonary vascular congestion. The heart is normal in size. There is degenerative disc disease of the spine. XR/XR chest 2V IMPRESSION: No acute cardiopulmonary abnormality. Electronically signed by: Aly Patton MD 06/12/2024 02:13 PM Independent Historian Clinical information obtained from an independent historian. History obtained from or confirmed by: Other ( son) Discharge Plan Discharge Clinical Impression: Acute bronchitis, Cough with hemoptysis, Acute pain of right ear, Chest pain Patient Disposition: Home, Self-Care Instructions: Acute Bronchitis (ED) Additional Instructions: Your blood work was unremarkable. Your EKG was normal. Your chest x-ray did not reveal any evidence for pneumonia. Your COVID-19, influenza and RSV tests were negative. Your symptoms are consistent with bronchitis which is inflammation/infection of your breathing tubes. Take amoxicillin 500 mg pills, 2 pills, every 6 hours (3 times a day) for 5 days. Take doxycycline 100 mg, 1 pill every 12 hours for 5 days Take Tylenol (acetaminophen) 500 mg pills, 2 pills every 6 hours as needed for pain or fever. Use the albuterol inhaler with the spacer, 2 puffs every 4-6 hours as needed for shortness of breath and wheezing. Follow-up with your doctor in 2 days. Please return to the emergency department if your symptoms get worse or if you develop any symptoms that are concerning to you. Prescriptions: New amoxicillin 500 mg capsule 1,000 mg PO TID 5 Days Qty: 30 0RF acetaminophen [Tylenol Extra Strength] 500 mg tablet 1,000 mg PO Q6H PRN (Reason: fever or pain) Qty: 20 0RF doxycycline hyclate 100 mg tablet 100 mg PO Q12H 5 Days Qty: 10 0RF albuterol sulfate [Ventolin HFA] 90 mcg/actuation HFA aerosol inhaler 2 puff inhalation Q4-6H PRN (Reason: shortness of breath or wheezing) Qty: 8.5 0RF No Action albuterol sulfate 2.5 mg /3 mL (0.083 %) solution for nebulization 3 ml inhalation TID PRN (Reason: muscle spasm) acetaminophen [Arthritis Pain Reliever] 650 mg tablet extended release 1 tab PO Q8H PRN (Reason: Pain) albuterol sulfate [ProAir HFA] 90 mcg/actuation HFA aerosol inhaler 2 puff PO Q4-6H PRN (Reason: Shortness Of Breath Or Wheezing) Flovent HFA 110 mcg/actuation HFA aerosol inhaler 1 puff PO BID aspirin 81 mg tablet,delayed release (DR/EC) 81 mg PO DAILY citalopram 40 mg tablet 40 mg PO QAM montelukast 10 mg tablet 10 mg PO BEDTIME cyclobenzaprine 10 mg tablet 10 mg PO TID PRN (Reason: muscle spasm) Qty: 14 0RF furosemide [Lasix] 40 mg tablet 40 mg PO DAILY Qty: 3 0RF diclofenac sodium 75 mg tablet,delayed release (DR/EC) 75 mg PO BID Qty: 60 2RF Myrbetriq 25 mg tablet extended release 24 hr 25 mg PO DAILY 30 Days Qty: 30 1RF losartan 25 mg tablet 25 mg PO DAILY spironolactone 50 mg tablet 50 mg PO DAILY aripiprazole 2 mg tablet 1 mg PO QAM pyridoxine (vitamin B6) 100 mg tablet 100 mg PO DAILY 90 Days Qty: 90 3RF clonazepam 0.5 mg tablet PO Interventions: ED Discharge Assessment Last Done: 06/13/24 01:41 Discharge Date/Time: 06/13/24 01:42 Print Language: Polish
[2024-06-12 13:55] LABS: Basophils Absolute Auto 0.1 X10*3/uL (0.0-0.2); Basophils Percent Auto 0.9 % (0-2); Eosinophils Absolute Auto 0.5 X10*3/uL (0.0-0.4); Eosinophils Percent Auto 6.6 % (0-4); Hematocrit 42.2 % (37.0-47.0); Hemoglobin 14.4 g/dl (12.0-16.0); Imm Gran Abs Auto 0.04 X10*3/uL (0.00-0.03); Imm Gran Pct Auto 0.5 % (0.0-0.4); Lymphocytes Absolute Auto 2.3 X10*3/uL (1.2-4.9); MANUAL DIFF FLAG NO; Mean Corpuscular HGB Conc 34.1 g/dl (31.0-35.0); Mean Corpuscular Hemoglobin 29.8 pg (27.0-33.0); Mean Corpuscular Volume 87.4 fL (80.0-98.0); Mean Platelet Volume 9.5 fL (9.4-12.3); Monocytes Absolute Auto 0.7 X10*3/uL (0.1-1.2); Monocytes Percent Auto 8.9 % (2-11); Neutrophils Absolute Auto 4.3 x10*3/uL (2.0-8.3); Neutrophils Percent Auto 54.1 % (45-73); Platelet Count 248 X10*3/uL (160-400); Red Blood Count 4.83 X10*6/uL (4.20-5.50); Red Cell Distribution Width 11.7 % (11.0-16.0)
[2024-06-12 14:14] LABS: Alanine Aminotransferase 16 U/L (0-31); Albumin Level 3.8 g/dL (3.5-5.0); Alkaline Phosphatase 78 U/L (39-117); Anion Gap 11 (12-20); Aspartate Amino Transferase 20 U/L (5-31); Bilirubin Total 0.4 mg/dL (0.0-1.0); Blood Urea Nitrogen 23 mg/dL (9-16); Calcium 9.4 mg/dL (8.4-10.2); Carbon Dioxide 26 mmol/L (22-29); Chloride 100 mmol/L (96-108); Creatinine Clr Calc Pharmacy 74.9; Estimated Glomerular Filt Rate > 60; Glucose Random 93 mg/dL (60-115); Magnesium 1.9 mg/dL (1.6-2.6); Potassium 4.4 mmol/L (3.3-5.1); Sodium 133 mmol/L (135-145); Total Protein 8.1 g/dL (6.5-8.0)
[2024-06-12 14:22] LABS: Troponin-I High Sensitivity < 2.7 ng/L (<3.5-17.0)
[2024-06-12 14:32] LABS: Influenza A PCR NEGATIVE (Negative); Influenza B PCR NEGATIVE (Negative); Resp Syncy Virus RNA Qual PCR NEGATIVE (Negative); SARS COV2 PCR INHOUSE NEGATIVE (Negative)
[2024-06-12 21:53] VITALS: BP 141/79; PULSE 65; RESP 16; TEMP 36.6; O2SAT 95
[2024-06-12 22:52] VITALS: BP 148/76; PULSE 94; RESP 19; TEMP 36.9; O2SAT 99
[2024-06-13] MEDS: Amoxicillin 500 MG CAPSULE 1000 MG PO (01:37)
[2024-06-13] MEDS: Doxycycline Monohydrate 100 MG CAPSULE PO (01:37)
[2024-06-13] MEDS: Acetaminophen 325 MG TABLET 975 MG PO (01:38)
[2024-06-13 01:41] VITALS: BP 148/76; PULSE 94; RESP 19; TEMP 36.9; O2SAT 99
== END 2024-06-13 01:42 | disposition home or self-care (01) ==
PROVIDERS: Physician Assistant Medical; Emergency Provider Emergency Medicine Emergency Medical Services; PCP Pediatrics
DX: J40 Bronchitis, not specified as acute or chronic (principal); R07.89 Other chest pain; R04.2 Hemoptysis; H92.01 Otalgia, right ear; Z03.818 Encounter for observation for suspected exposure to other biological agents ruled out
CPT/HCPCS: 0241U; 71046; 80053; 83735; 84484; 85025; 93005; 99212; 99283; 99284

== ENCOUNTER → 2024-06-12 13:22 | Outpatient (BNV) | payer OTHER, SELFPAY | PROVIDERS: PCP Pediatrics; Visit Provider Radiology Diagnostic Radiology | DX: R05.9 Cough, unspecified (principal); R07.9 Chest pain, unspecified | CPT/HCPCS: 71046 ==

== ENCOUNTER 2024-06-29 10:20 | Outpatient (REF) | payer OTHER, SELFPAY ==
--- OUTSIDE RECORDS SUMMARY | 2024-06-29 11:49 | XMS_ITS | Encounter Summary ---
Author Organization [employer] Address [address] [place] [address] Care Team Providers Care Manual Arts Teacher Name Role Phone Cordelia Diane MD Primary Care Provider [phone] Encounter Details Date Type Department Care Team (Latest Contact Info) Description 06/29/2024 Travel Social History Tobacco Use Types Packs/Day Years [...] Care Team (Late st Contact Info) Description 10/03/2024 11:30 AM EDT Office Visit [facility] MED & PEDS [address] [place] [address] Cordelia Diane MD [address] [place] [address] documented as of this encounter Visit Diagnoses Not on filedocumented in this encounter Additional Health Concerns Assessment Noted Time PHQ-9 Depression Total Score: 15 024 11:25 AM EDT documented as of this encounter Care Teams Manual Arts Teacher Relationship Specialty Start Date End Date Cordelia Diane MD [address] [place] [address] PCP - General Family Medicine 11/09/18 documented as of this encounter
--- OUTSIDE RECORDS SUMMARY | 2024-06-29 11:49 | XMS_ITS | Clinical Summary ---
Author Organization [employer] Address [address] [facility] 7[address] [place] [address] Care Team Providers Care Contract Engineer Name Role Phone Cordelia Diane MD Primary Care Provider [phone] Allergies Active Allergy Reactions Criticality Noted Date Comments Lisinopril Angioedema High 10/20/2011 Other reaction(s): FACE AND LIP SWELLING Lisinopril-Hydrochlorothiaz keena Angioedema 11/13/2020 Medications lidocaine (Lidoderm) 5 % patch Apply 1 patch topically in the morning. Remove & discard patch within 12 hours or as directed by MD. 30 patch 5 023 Active citalopram (CeleXA) 40 MG tablet Take 1 tablet by mouth in the morning. 021 Active albuterol (2.5 MG/3ML) 0.083% nebulizer solution Take 3 mL by nebulization every 8 (eight) hours if needed for wheezing. 25 mL 3 023 Active albuterol 108 (90 Base) MCG/ACT inhaler INHALE 2 PUFFS BY MOUTH EVERY 4 TO 6 HOURS NEEDED 8.5 g 2 023 Active gabapentin (Neurontin) 300 MG capsule TAKE 1 CAPSULE(300 MG) BY MOUTH TWICE DAILY 60 capsule 3 023 Active aspirin 81 MG EC tablet Take 1 tablet (81 mg) by mouth Once per day. 90 tablet 11 024 Active acetaminophen (Tylenol 8 Hour) 650 MG ER tablet Take 1 tab orally every 8 hours prn pain 90 tablet 024 Active bacitracin-poly myxin b (Polysporin) ointment Apply topically 2 times daily. 30 g 2 Active montelukast (Singulair) 10 MG tabletIndicatio ns:Mild persistent asthma without complication TAKE 1 TABLET BY MOUTH DAILY 90 tablet 3 Active clonazePAM (KlonoPIN) 0.5 MG tablet TAKE 1 TO 2 TABLETS BY MOUTH AT BEDTIME NEEDED FOR SLEEP Active spironolactone (Aldactone) 50 MG tabletIndicatio ns:Primary hypertension,Hy pokalemia,Edema , lower extremity Take 1 tablet (50 mg) by mouth Once per day. 30 tablet 11 024 2024 Active losartan (Cozaar) 25 MG tabletIndicatio ns:Primary hypertension Take 1 tablet (25 mg) by mouth Once per day. 30 tablet 11 024 2024 Active oxybutynin XL (Ditropan-XL) 5 MG 24 hr tablet TAKE 1 TABLET(5 MG) BY MOUTH IN THE MORNING. DO NOT CRUSH, CHEW, OR SPLIT 30 tablet 11 Active hydrOXYzine HCl (Atarax) 10 MG tabletIndicatio ns:Pruritus,Dry skin TAKE 1 TABLET(10 MG) BY MOUTH AT BEDTIME NEEDED FOR ITCHING 30 tablet Active fluticasone (Flovent HFA) 110 MCG/ACT inhaler INHALE 1 PUFF PO 2 TIMES A DAY 12 g 11 Active cetirizine (ZyrTEC) 10 MG tabletIndicatio ns:Pruritus,Dry skin Take 1 tablet (10 mg) by mouth Once per day. 30 tablet 11 025 2025 Active pyridoxine (Vitamin B-6) 100 MG tablet Take 0.5 tablets (50 mg) by mouth Once per day. 30 tablet 3 Active benzonatate (Tessalon Perles) 100 MG capsule Take 1 capsule (100 mg) by mouth if needed in the morning, at noon, and at bedtime for cough for up to 7 days. Do not crush or chew. 20 capsule 025 2024 Active pyridoxine (Vitamin B-6) 100 MG tablet Take 100 mg by mouth in the morning. 023 2024 Discontinued(R eorder (will not trigger notification to Pharmacy)) fluticasone (Flovent HFA) 110 MCG/ACT inhaler INHALE 1 PUFF PO 2 TIMES A DAY 12 g 11 023 2024 Discontinued(R eorder (will not trigger notification to Pharmacy)) cetirizine (ZyrTEC) 10 MG tabletIndicatio ns:Pruritus,Dry skin Take 1 tablet (10 mg) by mouth in the morning. 30 tablet 11 024 2024 Discontinued(R eorder (will not trigger notification to Pharmacy)) ergocalciferol (Vitamin D2) 1.25 MG (08154 UT) capsule Take 1 capsule (1.25 mg) by mouth 1 (one) time per week. 15 capsule 024 2024 Discontinued(T herapy completed) azithromycin (Zithromax) 250 MG tablet Take 2 tabs orally on day 1 , then 1 tab daily 6 tablet 024 2024 Discontinued(T herapy completed) cholecalciferol (Vitamin D-3) 50 MCG (2000 UT) capsule Take 1 capsule (50 mcg) by mouth Once per day. 90 capsule 3 025 2024 Discontinued(T herapy completed) Active Problems Problem Noted Date Diagnosed Date [...] 2 years ago. 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 Discussed to go to ER for further evaluation and work-up. -referred back to cardiology with Dr. Trino Mckenzie DO 11/19/23 Controlled mild persistent asthma 11/30/2018 Low [...] Encounters Date Type Department Care Team Description 06/29/2024 10:15 AM EDT Office Visit [facility] [address] [place] [address] Coredlia Diane MD Controlled mild persistent asthma (Primary Dx); Primary hypertension; Depressive disorder; Low vitamin D level; Pruritus; Dry skin 06/29/2024 Travel 06/22/2024 Patient Outreach [address] [address] Cordelia Diane MD Pre-visit Planning (SDOH screening negative and Tobacco screening negative) 06/15/2024 Telephone [facility] [address] [place] [address] Cordelia Diane MD No Show 06/13/[address] [address] Cordelia Diane MD ER Follow-up 06/12/2024 Orders Only GENERIC EXTERNAL DATA DEPARTMENT Provider, Generic External Data 06/05/[address] [address] Cordelia Diane MD Durable Medical Equipment 05/23/2024 Telephone [facility] [address] [place] [address] Cordelia Diane MD Results 05/23/2024 Orders Only [facility] [address] [place] [address] Cordelia Diane MD 05/17/2024 Orders Only [facility] External Provider, [facility] 05/14/2024 Refill [facility] [address] [place] [address] Cordelia Diane MD Pruritus; Dry skin 04/16/2024 Refill [facility] [address] [place] [address] Mireya Hemphill MD Pruritus; Dry skin 04/16/2024 Refill [facility] [address] [place] [address] Cordelia Diane MD from Last 3 Months Immunizations Name Administration [...] Sign Reading Time Taken Comments Blood Pressure 120/70 06/29/2024 9:25 AM EDT Pulse 80 06/29/2024 9:25 AM EDT Temperature 36.5 ??C (97.7 ??F) 06/29/2024 9:25 AM ED T Respiratory Rate 20 06/29/2024 9:25 AM EDT Oxygen Saturation 98% 12/09/2023 3:11 PM EDT Inhaled Oxygen Concentration - - Weight 93.4 kg (206 lb) 06/29/2024 9:25 AM EDT Height 167.6 cm (5' 6 ) 06/29/2024 9:25 AM EDT Body Mass Index 33.25 06/29/2024 9:25 AM EDT Plan of Treatment Upcoming Encounters Date Type Department Care Team ([facility] st Contact Info) Description 10/03/2024 11:30 AM EDT Office Visit [facility] [address] [place] [address] Cordelia Diane MD [address] [place] [address] Health Maintenance Due Date Last Done Comments CT Colonography 1950 Colonoscopy 1950 Dental Prophylaxis 1950 Dental X-Ray: Bitewings 1950 Dental X-Ray: Full Mouth 1950 FIT DNA/Cologuard 1950 FOBT 1950 Sigmoidoscopy 1950 Alcohol/Substance Use Screening 1964 Hepatitis C Screening 02/08/1970 Dental Oral Exam 08/14/2022 02/12/2022 Colorectal Cancer Screening 09/25/2023 FIT 09/25/2023 09/24/2022 COVID-19 Vaccine ( season) 2023 12/31/2021, 02/07/2021, 08/15/2020, Additional history exists Depression Screening 09/08/2024 09/09/2023, 09/09/19 24 SDOH Screening 06/22/2025 06/22/2024 Tobacco Screening 06/29/2025 06/29/2024 Mammogram 01/24/2026 01/25/2024, 11/30, 12/12/2021, Additional history [...] AUTO DIFFERENTIAL Routine 06/12/2024 1:49 PM EDT SARS COV2/INFLUENZA A/B AND RSV RNA QL NAAT Routine 06/12/2024 1:49 PM EDT XR CHEST [...] HIGH SENSITIVITY <2.7 <3.5 - 17.0 ng/L [facility] Comment:The Chery high sens itivity Troponin-I results should beused in conjunction with other diagnostic information suchas ECG, clinical observations and information, and patientsymptoms to aid in the diagnosis of [place]. 06/12/2024 1:49 PM EDT 06/12/2024 1:53 PM EDT us Generic External Data Provider LAB BLOOD ORDERAB LES Final Result [facility] [address] [place] [phone] * SARS-CoV-2 RNA, Influenza A/B, and RSV RNA, Ql NAAT (06/12/2024 1:49 PM EDT) Pathologist [facility] Influenza A PCR NEGATIVE Negative [facility] Influenza B PCR NEGATIVE Negative [facility] Resp Syncy Virus RNA Qual PCR NEGATIVE Negative [facility] SARS COV2 PCR NEGATIVE Negative [facility] Comment:All test results mus t be correlated with clinical findings.Negative results do not preclude SARS-CoV2, influenza Avirus, influenza B virus and/or RSV infectionand should not be used as the sole basis for treatment orother patient management decisions. Negative results must becombined with clinical observations, patient history, andepidemiological information.This test has not been evaluated for monitoring treatment ofinfection.This test has been authorized by the FDA under an EmergencyUse Authorization (EUA) for use by authorized laboratories.Testing performed on the [employer] GeneXpert utilizingreal-time RT-PCR.All SARS CoV2 and positive influenza A/B results arereported to [facility]. 06/12/2024 1:49 PM EDT 06/12/2024 1:53 PM EDT us Generic External Data Provider LAB MICROBIOLOGY - GENERAL ORDERABLES Final Result [facility] [address] [place] [address] [phone] * (ABNORMAL) CBC auto differential (06/12/2024 1:49 PM EDT) White Blood Count 8.0 4.8 - 10.8 X10*3/uL [facility] Red Blood Count 4.83 4.20 - 5.50 X10*6/uL [facility] Hemoglobin 14.4 12.0 - 16.0 g/dl [facility] Hematocrit 42.2 37.0 - 47.0 % [facility] Mean Corpuscular Volume 87.4 80.0 - 98.0 fL [facility] Mean Corpuscular Hemoglobin 29.8 27.0 - 33.0 pg [facility] Mean Corpuscular HGB Conc 34.1 31.0 - 35.0 g/dl [facility] Red Cell Distribution Width 11.7 11.0 - 16.0 % [facility] Platelet Count 248 160 - 400 X10*3/uL [facility] Mean Platelet Volume 9.5 9.4 - 12.3 fL [facility] Neutrophils Percent Auto 54.1 45 - 73 % [facility] Imm Gran Pct Auto 0.5(H) 0.0 - 0.4 % [facility] Lymphocytes Percent Auto 29.0 20 - 40 % [facility] Monocytes Percent Auto 8.9 2 - 11 % [facility] Eosinophils Percent Auto 6.6(H) 0 - 4 % [facility] Basophils Percent Auto 0.9 0 - 2 % [facility] NRBC Pct Auto 0.0 0.0 - 0.2 /100WBC [facility] Neutrophils Absolute Auto 4.3 2.0 - 8.3 x10*3/uL [facility] Imm Gran Abs Auto 0.04(H) 0.00 - 0.03 X10*3/uL [facility] Lymphocytes Absolute Auto 2.3 1.2 - 4.9 X10*3/uL [facility] Monocytes Absolute Auto 0.7 0.1 - 1.2 X10*3/uL [facility] Eosinophils Absolute Auto 0.5(H) 0.0 - 0.4 X10*3/uL [facility] Basophils Absolute Auto 0.1 0.0 - 0.2 X10*3/uL [facility] NRBC Abs Auto 0.000 0.0 - 0.012 X10*3/uL [facility] 06/12/2024 1:49 PM EDT 06/12/2024 1:53 PM EDT Generic External Data Provider LAB BLOOD ORDERAB LES Final Result Performing Organization Address [facility] Co de Phone Number [facility] [address] [place] [phone] * Magnesium (06/12/2024 1:49 PM EDT) Magnesium 1.9 1.6 - 2.6 mg/dL [facility] 06/12/2024 1:49 PM EDT 06/12/2024 1:53 PM EDT Generic External Data Provider LAB BLOOD ORDERAB LES Final Result Performing Organization Address [facility] Co de Phone Number [facility] [address] [place] [phone] * (ABNORMAL) Comprehensive Metabolic Panel (06/12/2024 1:49 PM EDT) Sodium 133(L) 135 - 145 mmol/L [facility] Potassium 4.4 3.3 - 5.1 mmol/L [facility] Chloride 100 96 - 108 mmol/L [facility] Carbon Dioxide 26 22 - 29 mmol/L [facility] Anion Gap 11(L) 12 - 20 [facility] Urea Nitrogen (BUN) 23(H) 9 - 16 mg/dL [facility] Creatinine, Serum 0.80 0.5 - 1.4 mg/dL [facility] Creatinine Clr Calc Pharmacy 74.9 [facility] Comment:Provided height and weight: 170.18 cm,94.347 kg.eGFR (calculated from the MDRD study equation) and eCrCl(calculated from the Cockcroft-Gault equation) are based ondifferent parameters and may not yield comparable results.If eCrCl result is absurd, please check patient'sheight/weight. Estimated Glomerular Filt Rate >60 [facility] Comment:Chronic Kidney Disea se: Estimated GFR < 60 mL/min/1.48e3Qgjahl Kidney Disease: Estimated GFR < 15 mL/min/1.73m2 Glucose 93 60 - 115 mg/dL [facility] Calcium 9.4 8.4 - 10.2 mg/dL [facility] Bilirubin, Total 0.4 0.0 - 1.0 mg/dL [facility] Aspartate Amino Transferase 20 5 - 31 U/L [facility] Alanine Aminotransferase 16 0 - 31 U/L [facility] Total Protein 8.1(H) 6.5 - 8.0 g/dL [facility] Albumin Level 3.8 3.5 - 5.0 g/dL [facility] Alkaline Phosphatase 78 39 - 117 U/L [facility] 06/12/2024 1:49 PM EDT 06/12/2024 1:53 PM EDT us Generic External Data Provider LAB BLOOD ORDERAB LES Final Result [facility] [address] [place] [address] [phone] * XR Chest 2 Views (06/12/2024 1:22 PM EDT) Anatomical Region Laterality Modality Chest Radiographic Clarita ging 06/12/2024 1:22 PM EDT Narrative 06/12/2024 2:16 PM EDT ? [facility] ?[address] ?[place] [address] ?XRay Report ? Signed ? Patient: Dumont Black,Dionides ?MR#: ?? [id number] ? : 1950 ?Acct:[id number] ? Age/Sex: 74 / F ?ADM Date: 06/12/24 ? Loc: HO.ED ? Attending Dr: ? Ordering Physician: Debbie Vásquez ?? Date of Service: 06/12/24 ?? Procedure(s): XR chest 2V ?? Accession Number(s): [id number] ? cc: Cordelia Diane MD; Debbie Vásquez [...] DD/ 1322 ? TD/TT: 06/12/24 1400 ? Marine Equipment Sales Engineer: ? Procedure Note Rama Avalos - 06/12/2024 [facility] [address] [facility] [address] XRay Report Signed Patient: Rosemarie MorelosMR#: [id number] : 2Acct:[id number] Age/Sex: 74 / FADM Date: 06/12/24 Loc: HO.ED Attending Dr: Ordering Physician: Debbie Vásquez Date of Service: 06/12/24 Procedure(s): XR chest 2V Accession Number(s): [id number] cc: Cordelia Diane MD; Debbie Vásquez EXAMINATION: [...] Aly Patton MD 06/12/2024 02:13 PM EDT RP Dictated By: Aly Patton MD Signed By: <Electronically signed by Aly Patton MD in OV> 06/12/24 1413 DD/ 1322 TD/TT: 06/12/24 1400 Marine Equipment Sales Engineer: [facility] External Provider IMG XR PROCEDURES Edited Result - Final * Stress test with myocardial perfusion (05/17/2024 10:26 AM EDT) 05/17/2024 10:2 6 AM EDT [facility] - 05/24/2024 3:37 PM EDT ? [facility] ?[address] ?[place] [address] ?Nuclear Medicine Report ? Signed ? Patient: Dumont Black,Dionides ?MR#: ?? [id number] ? : 1950 ?Acct:[id number] ? Age/Sex: 74 / F ?ADM Date: 03/19/25 ? Loc: HO.CARD ? Attending Dr: Reilly Back MD ? Ordering Physician: Reilly Back MD ?? Date of Service: 05/17/24 ?? Procedure(s): NM cardiolite stress test ?? Accession Number(s): [id number] ? cc: Cordelia Diane MD; Reilly Back [...] MD ? Signed By: ?<Electronically signed by eTrrence Adamson MD in OV> ?05/24/24 1534 ? DD/ 1026 ? TD/TT: 05/24/24 1420 ? Marine Equipment Sales Engineer: ? Procedure Note Donotuseinterpreter, Image - 05/24/[address] [address] Nuclear Medicine Report Signed Patient: Rosemarie MorelosMR#: [id number] : 1950cct:[id number] Age/Sex: 74 / FADM Date: 05/17/24 Loc: TERESITAEthanSHEA Attending Dr: Reilly Back MD Ordering Physician: Reilly Back MD Date of Service: 05/17/24 Procedure(s): ME cardiolite stress test Accession Number(s): [id number] cc: Cordelia Diane MD; Reilly Back MD [...] Terrence Adamson MD 05/24/2024 03:34 PM EDT RP Dictated By: Terrence Adamson MD Signed By: <Electronically signed by Terrence Adamson MD in OV> 05/24/24 1534 DD/ 1026 TD/TT: 05/24/24 1420 Marine Equipment Sales Engineer: us [facility] External Provider CV STRE SS PROCEDURES Final Result [facility] [address] [place] [phone] * (ABNORMAL) Vitamin D, 25-Hydroxy, Total, Immunoassay (05/17/2024 8:40 AM EDT) Vitamin D 25-OH Total 22.2(L) >30 ng/mL [facility] Comment: Health Based Reference Values*< 20 ??ng/mL ??Sqxzssiwv75-17 ng/mL ??Insufficient> 30 ??ng/mL ??Sufficient*Wiley BRODERICK. N [...] MD LAB BLOOD ORDERABLES Final Re sult [facility] [address] [place] [address] [phone] * BI Mammogram Screening Tomosynthesis Bilateral (01/25/2024 10:30 AM EST) Anatomical Region Laterality Modality Breast Bilateral Mammography 01/25/2024 10:3 0 AM EST Narrative 02/03/2024 12:20 PM EST ? [facility] [place] ? [address] ?[place] [address] ? Mammography Report ? Signed ? Patient: Tim Black,Dionides ?MR#: ?? [id number] ? : 1950 ?Acct:[id number] ? Age/Sex: 73 / F ?ADM Date: 11/26/24 ? Loc: HO.MAMMO ? Attending Dr: Cordelia Diane MD ? Ordering Physician: Cordelia Diane MD ?Results: 1Ne ?? gative ? Date of Service: 01/25/24 ?Follow Up: 1 Year From Orig ?? inal Mammogram ? Procedure(s): MM tomosynthesis screening BI ?? Accession Number(s): [id number] ? cc: Cordelia Diane MD ? EXAMINATION: [...] PM EST ?? RP ? Dictated By: ?Mariosl Hassan DO ? Signed By: ?<Electronically signed by Marisol Hassan, DO in OV> ? 02/03/24 1218 ? DD/ 1030 ? TD/TT: 01/25/24 1045 ? Marine Equipment Sales Engineer: ? Procedure Note Robbie, Image - 02/03/2024 [facility] [address] [place] [address] Dr. [place], [place] [address] Mammography Report Signed Patient: Rosemarie MorelosMR#: [id number] : 2Acct:[id number] Age/Sex: 73 / FADM Date: 01/25/24 Loc: HO.MAMMO Attending Dr: Cordelia Diane MD Ordering Physician: Cordelia Diane MDResults: 1Ne gative Date of Service: 01/25/24Follow Up: 1 Year From Orig ina Mammogram Procedure(s): MM tomosynthesis screening BI Accession Number(s): [id number] cc: Cordelia Diane MD EXAMINATION: MM SCREENING [...] by: Marisol Hassan DO 02/03/2024 12:18 PM [facility] Dictated By: Marisol Hassan DO Signed By: <Electronically signed by Marisol Hassan DO in OV> 02/03/24 1218 DD/ 1030 TD/TT: 01/25/24 1045 Marine Equipment Sales Engineer: us Cordelia Diane MD IMG BI PROCEDURES Edited Resu lt - Final * (ABNORMAL) Lipid Panel, Standard (05/20/2023 10:37 AM EDT) Triglycerides 102 <150 mg/dL [facility] Comment:Desirable Triglyceri de: less than 150 mg/dLBorderline High Triglyceride 150-199 mg/dLHigh Triglyceride: 200-499 mg/dLVery High Triglyceride: greater than or equal to 5OO mg/dL Cholesterol 179 <200 mg/dL [facility] Comment:Desirable Cholestero l: less than 200 mg/dLBorderline High Cholesterol: 200-239 mg/dLHigh Cholesterol: greater than 239 mg/dL LDL Cholesterol Calculated 114(H) <100 mg/dL [facility] Comment:Desirable LDL: less than 100 mg/dLNear Optimal/Above Optimal LDL: 110- 129 mg/dLBorderline High LDL: 130-159 mg/dLHigh LDL: 160-189 mg/dLVery High LDL: greater than or equal to 190 mg/dL HDL Cholesterol 45 >40 mg/dL [facility] Comment:Desirable HDL: great er than 40 mg/dL Note: This HDL assay may give artificially low results in patients with liver disease. Blood Venous blood specimen / Unknown 05/20/2023 10:37 AM EDT 05/20/2023 2:45 PM EDT Cordelia Diane MD LAB BLOOD ORDERABLES Final Re sult [facility] [address] [place] [phone] * Fecal Immunochemical Test (09/24/2022) Pathologist [facility] Fecal Immunochemical Test Nonreactive Stool Rectal contents / Unknown 09/24/2022 Narrative Christie Hnanon RN - 09/24/2022 See scanned report, Normal FIT test [facility] Provider HEALTH MAINTENANCE Final Result from Last 3 Months or Most Recently Relevant to Health Maintenance Insurance [facility] OPT[employer] (HMO D-SNP) [facility] Care Teams Contract Engineer Relationship Specialty Start Date End Date Cordelia Diane MD [address] [place] [address] PCP - General Family Medicine 11/09/18
--- OUTSIDE RECORDS SUMMARY | 2024-06-29 11:49 | XMS_ITS | Encounter Summary ---
Author Organization [employer] Address [address] [facility] 7 [place] [address] Care Team Providers Care Fitter / Welder Name Role Phone Cordelia Diane MD Primary Care Provider [phone] Reason for Visit * Reason Comments Med Refill Encounter Details Date Type Department Care Team ([facility] st Contact Info) Description 02/13/2024 Refill [facility] [address] [place] [address] Didi Dutta MD [address] [place] [address] Pruritus; Dry skin Social History Tobacco Use [...] Description 10/03/2024 11:30 AM EDT Office Visit [facility] [address] [place] [address] Cordelia Diane MD [address] [place] [address] documented as of this encounter Visit Diagnoses Diagnosis Pruritus Unspecified pruritic disorder Dry skin Other symptoms involving skin and integumentary tissues documented in this encounter Additional Health Concerns Assessment Noted Time PHQ-9 Depression Total Score: 15 024 11:25 AM EDT documented as of this encounter Care Teams Fitter / Welder Relationship Specialty Start Date End Date Cordelia Diane MD [address] [place] [address] PCP - General Family Medicine 11/09/18 documented as of this encounter
--- OUTSIDE RECORDS SUMMARY | 2024-06-29 11:49 | XMS_ITS | Encounter Summary ---
Author Organization [employer] Address [address] [facility] 7t [place] [address] Care Team Providers Care Glazier Apprentice Name Role Phone Cordelia Diane MD Primary Care Provider [phone] Encounter Details Date Type Department Care Team ([facility] st Contact Info) Description 06/29/2024 10:15 AM EDT Office Visit [facility] MED [facility] PEDS [address] [place] [address] Cordelia Diane MD [address] [place] [address] Controlled mild persistent asthma (Primary Dx); Primary hypertension; Depressive disorder; Low vitamin D level; Pruritus; Dry skin Social History Tobacco Use [...] AM EDT documented as of this encounter Last Filed Vital Signs Vital Sign Reading Time Taken Comments Blood Pressure 120/70 06/29/2024 9:25 AM EDT Pulse 80 06/29/2024 9:25 AM EDT Temperature 36.5 ??C (97.7 ??F) 06/29/2024 9:25 AM ED T Respiratory Rate 20 06/29/2024 9:25 AM EDT Oxygen Saturation - - Inhaled Oxygen Concentration - - Weight 93.4 kg (206 lb) 06/29/2024 9:25 AM EDT Height 167.6 cm (5' 6 ) 06/29/2024 9:25 AM EDT Body Mass Index 33.25 06/29/2024 9:25 AM EDT documented in this encounter Plan of Treatment Upcoming Encounters Date Type Department Care Team (Late st Contact Info) Description 10/03/2024 11:30 AM EDT Office Visit [facility] PEDS [address] [place], [place] [phone] Cordelia Diane MD [address] [place], [place] [phone] Scheduled Orders Name Type Priority Associated Diagnoses Orde r Schedule Vitamin D, 25-Hydroxy, Total, Immunoassay Lab Routine Low vitamin D level Expected: 06/29/2024 (Approximate), Expires: 06/29/2025 documented as of this encounter Visit Diagnoses Diagnosis Controlled mild persistent asthma- Primary Primary hypertension Unspecified essential hypertension Depressive disorder Depressive disorder, not elsewhere classified Low vitamin D level Pruritus Unspecified pruritic disorder Dry skin Other symptoms involving skin and integumentary tissues documented in this encounter Additional Health Concerns Assessment Noted Time PHQ-9 Depression Total Score: 15 024 11:25 AM EDT documented as of this encounter Care Teams Glazier Apprentice Relationship Specialty Start Date End Date Cordelia Diane MD [address] [place] [address] PCP - General Family Medicine 11/09/18 documented as of this encounter
--- OUTSIDE RECORDS SUMMARY | 2024-06-29 11:49 | XMS_ITS | Encounter Summary ---
Author Organization [employer] Address [address] [place] [address] 7 [place] [address] Care Team Providers Care Vaccine Specialist Name Role Phone Cordelia Diane MD Primary Care Provider [phone] Encounter Details Date Type Department Care Team (Latest Contact Info) Description 08/28/2021 Abstract [facility] CONVERSIONS Dental, Provider, DDS Social History [...] Description 10/03/2024 11:30 AM EDT Office Visit [facility] MED [facility] PEDS [address] [place] [address] Cordelia Diane MD [address] [place] [address] documented as of this encounter Visit Diagnoses Not on filedocumented in this encounter Care Teams Vaccine Specialist Relationship Specialty Start Date End Date Cordelia Diane MD [address] [place] [address] PCP - General Family Medicine 11/09/18 documented as of this encounter
--- OUTSIDE RECORDS SUMMARY | 2024-06-29 11:49 | XMS_ITS | Encounter Summary ---
Author Organization [employer] Address [address] [facility] 7 [place] [address] Care Team Providers Care Enrollment Nurse Name Role Phone Cordelia Diane MD Primary Care Provider [phone] Reason for Visit * Reason Onset Date Comments Med Change Request 11/23/2023 Encounter Details Date Type Department Care Team ([facility] Contact Info) Description 11/23/2023 Telephone [facility] MEDICINE [address] [place] [address] Cordelia Diane MD [address] [place] [address] Med Change Request Social History Tobacco Use [...] Description 10/03/2024 11:30 AM EDT Office Visit [facility] MED & PEDS [address] [place] [address] Cordelia Diane MD [address] [place] [address] documented as of this encounter Visit Diagnoses Not on filedocumented in this encounter Additional Health Concerns Assessment Noted Time PHQ-9 Depression Total Score: 15 024 11:25 AM EDT documented as of this encounter Care Teams Enrollment Nurse Relationship Specialty Start Date End Date Cordelia Diane MD [address] [place] [address] PCP - General Family Medicine 11/09/18 documented as of this encounter
--- OUTSIDE RECORDS SUMMARY | 2024-06-29 11:50 | XMS_ITS | Encounter Summary ---
Author Organization [employer] Address [address] [place] [address] 7 [place] [address] Care Team Providers Care Grain Combiner Name Role Phone Cordelia Diane MD Primary Care Provider [phone] Encounter Details Date Type Department Care Team (Latest Contact Info) Description 12/18/2019 Abstract [facility] CONVERSIONS Dental, Provider, DDS Social History [...] Description 10/03/2024 11:30 AM EDT Office Visit [facility] MED & PEDS [address] [place] [address] Cordelia Diane MD [address] [place] [address] documented as of this encounter Visit Diagnoses Not on filedocumented in this encounter Care Teams Grain Combiner Relationship Specialty Start Date End Date Cordelia Diane MD [address] [place] [address] PCP - General Family Medicine 11/09/18 documented as of this encounter
--- OUTSIDE RECORDS SUMMARY | 2024-06-29 11:50 | XMS_ITS | Encounter Summary ---
Author Organization [employer] [facility] Address [address] [place] [address] 7 [place] [address] Care Team Providers Care Profile Trimmer Name Role Phone Cordelia Diane MD Primary Care Provider Encounter Details Date Type Department Care Team ([facility] Contact Info) Description 2022 Abstract [facility]AL [address] [place] [address] Dental, Provider, DDS Social History Tobacco Use [...] Encounters Date Type Department Care Team (Late Contact Info) Description 10/03/2024 11:30 AM EDT Office Visit [facility] MED & PEDS [address] [place], [place] [phone] Cordelia Diane MD [address] [place] [address] documented as of this encounter Procedures Procedure [...] on filedocumented in this encounter Care Teams Profile Trimmer Relationship Specialty Start Date End Date Cordelia Diane MD [address] [place] [address] PCP - General Family Medicine 11/09/18 documented as of this encounter
--- OUTSIDE RECORDS SUMMARY | 2024-06-29 11:50 | XMS_ITS | Encounter Summary ---
Author Organization [employer] Address [address] [place] [address] 7 [place] [address] Care Team Providers Care Roll Form Operator Name Role Phone Cordelia Diane MD Primary Care Provider [phone] Encounter Details Date Type Department Care Team (Latest Contact Info) Description 01/03/2019 Abstract [facility] CONVERSIONS Dental, Provider, DDS Social [...] Description 10/03/2024 11:30 AM EDT Office Visit [facility] CH[facility] MED & PEDS [address] [place] [address] Cordelia Diane MD [address] [place] [address] documented as of this encounter Visit Diagnoses Not on filedocumented in this encounter Care Teams Roll Form Operator Relationship Specialty Start Date End Date Cordelia Diane MD [address] [place] [address] PCP - General Family Medicine 11/09/18 documented as of this encounter
--- OUTSIDE RECORDS SUMMARY | 2024-06-29 11:50 | XMS_ITS | Encounter Summary ---
Author Organization [employer] Address [address] [place] [address] 7t [place] [address] Care Team Providers Care Set Up Operator Tool Name Role Phone Cordelia Diane MD Primary Care Provider [phone] Encounter Details Date Type Department Care Team ([facility] Contact Info) Description 09/03/2022 Orders Only [facility] MED & PEDS [address] [place] [address] Jo Caba LPN Social History Tobacco Use [...] Upcoming Encounters Date Type Department Care Team ([facility] Contact Info) Description 10/03/2024 11:30 AM EDT Office Visit [facility] MED & PEDS [address] [place] [address] Cordelia Diane MD [address] [place] [address] documented as of this encounter Visit Diagnoses Not on filedocumented in this encounter Additional Health Concerns Assessment Noted Time PHQ-9 Depression Total Score: 1 05/30/19 23 9:53 AM EDT documented as of this encounter Care Teams Set Up Operator Tool Relationship Specialty Start Date End Date Cordelia Diane MD [address] [place] [address] PCP - General Family Medicine 11/09/18 documented as of this encounter
[2024-06-29 14:53] LABS: Vitamin D 25-OH Total 5.1 ng/mL (>30)
== END 2024-06-29 10:21 | disposition home or self-care (01) ==
LOC: HO.CHCLDS 10:20
PROVIDERS: Visit Provider Pediatrics
DX: R79.89 Other specified abnormal findings of blood chemistry (principal)
CPT/HCPCS: 36415; 82306

== ENCOUNTER 2024-10-03 11:48 | Outpatient (REF) | payer OTHER, SELFPAY | END 2024-10-03 11:49 | disposition home or self-care (01) | LOC: HO.CHCLDS 11:48 | PROVIDERS: Visit Provider Pediatrics | DX: R79.89 Other specified abnormal findings of blood chemistry (principal) | CPT/HCPCS: 36415; 82306 ==

== ENCOUNTER 2024-12-19 12:51 | Outpatient (AMB) | payer OTHER, SELFPAY ==
[2024-12-19 13:20] VITALS: BP 124/62; PULSE 64; BMI 31.1
--- NOTE | 2024-12-19 13:20 | A.OFFVIS_ITS ---
Vital Signs 12/19/24 13:20 Height 5 ft 7 in Weight 198 lb 13.711 oz BMI 31.1 BP 124/62 Blood Pressure Location Lt brachial Position Sitting Pulse 64 Pulse Source Pulse Oximeter Intake Visit Reasons: 6 mth f/up KM Software Developer Manager Required: Yes Software Developer Manager Name: deepa nelson [id number] Allergies lisinopril (LISINOPRIL) Allergy (Severe, Verified 12/19/24 13:22) ANGIOEDEMA, anaphylaxis, swelling in mouth and face Medication List - Last Reconciled 12/19/24 by INDERJIT Sandoval acetaminophen (Tylenol Extra Strength) 1,000 mg (2 x 500 mg) PO Q6H PRN acetaminophen ER (Arthritis Pain Reliever) 1 tab PO Q8H PRN albuterol sulfate 3 mL inhalation TID PRN albuterol sulfate 90 mcg/actuation (Ventolin HFA) 2 puffs inhalation Q4-6H PRN aripiprazole 1 mg PO QAM aspirin 81 mg PO DAILY citalopram 40 mg PO QAM clonazepam mg PO cyclobenzaprine 10 mg PO TID PRN diclofenac sodium 75 mg PO BID doxycycline hyclate 100 mg PO Q12H 5 days fluticasone propionate 110 mcg/actuation (Flovent HFA) 1 puff PO BID furosemide (Lasix) 40 mg PO DAILY losartan 25 mg PO DAILY mirabegron ER (Myrbetriq) 25 mg PO DAILY 30 days montelukast 10 mg PO BEDTIME pyridoxine (vitamin B6) 100 mg PO DAILY 90 days spironolactone 50 mg PO DAILY HPI HPI 6 mth f/up KM: Details: Rosemarie is a 74-year-old female with past medical history of obesity, hypertension, diastolic dysfunction who presents for follow-up. Today she states that she has been having issues with quick stabbing pains in her chest. This is not a new thing for her and can occur a few times in a day and not for a long while. There is no pattern to when this occurs. The episo vida last seconds and resolve. She does not get chest discomfort with ambulation or housework. Her breathing is comfortable, no PND, orthopnea or recent edema. No heart palpitations, lightheadedness, presyncope, syncope. She is concerned about daytime sleepiness and snoring. She says her daughter and DENTURE PACKER have witnessed her have sleep apnea. She did a home sleep study but states it did not record any information. She says she was told she would have another sleep study but has not been called. She is taking all her meds as directed. She tries to follow a low-salt diet. Certified open winder used. [facility] Medical History (Updated 12/19/24 @ 16:42 by Snehal Green, VARGAS-C) Anxiety Depression Osteopenia History of diverticulitis Asthma HTN (hypertension) Surgical History History of laryngoscopy Hx of lithotripsy Hx of dilation and curettage S/P right knee arthroscopy Hx of cataract extraction Hx of right knee surgery History of carpal tunnel release of both wrists History of colon resection Hx of colonoscopy Family History Father Liver cancer Brother Liver cancer Sister Liver cancer Mother Fungus disease Social History Housing: Apartment Alcohol intake: never Patient Tobacco Use Status: Former Tobacco user Review of Systems Const Details: reports having depression and anxiety All systems reviewed & are unremarkable except as noted in HPI and below Reports fatigue and Reports stops breathing during sleep (tells me it has been witnessed) ENT Denies dizziness Card Denies chest pain, Denies chest pain at rest, Denies chest pain with activity, Denies rapid heart rate, Denies pedal edema, Denies edema, Denies leg edema, Denies lightheadedness, Denies palpitations, Denies dyspnea, Denies dyspnea on exertion and Denies orthopnea Resp Denies cough, Denies dyspnea and Denies dyspnea on exertion GI Denies hematochezia and Denies change in stool character Musc Denies abnormal gait, Denies limited range of motion, Denies muscle cramps, Denies muscle weakness, Denies numbness, Denies radiating pain into limb, Denies stiffness and Denies tingling Neuro Denies abnormal gait, Denies dizziness, Denies numbness and Denies tingling Endo Reports fatigue and Denies palpitations Physical Exam Vital Signs: Last Vital Signs Pulse 64 12/19/24 13:20 BP 124/62 12/19/24 13:20 BMI result Body Mass Index 31.1 Const General: cooperative, healthy appearing, comfortable and no acute distress Orientation/consciousness: patient oriented x3 Neck Neck: Yes normal visual inspection Resp Effort & Inspection: normal respiratory effort Auscultation: clear to auscultation bilaterally, no crackles, no rales, no rhonchi and no wheezes Cardio Jugular venous distension: no JVD Rate: regular rate Rhythm: regular rhythm Heart sounds: S1 normal heart sound present, S2 normal heart sound present, no gallops, no murmurs and no rubs Peripheral pulses: Peripheral pulses 2+ throughout Neuro General: patient oriented x3 Extrem General: Yes normal to inspection and No no pedal edema Psych Appearance: grossly normal Mental Status: mental status grossly normal Speech and movement: Normal speech and movement present Assessment & Plan Assessment & Plan (1) Diastolic dysfunction: Code(s): I51.89 - Other ill-defined heart diseases Category: Medical Plan: History of diastolic dysfunction with prior echo 11/21/2021 showing EF 65%, no significant valve abnormalities and grade 1 diastolic dysfunction. In the past she has had lower leg edema. She is currently maintained on Lasix 40 mg daily and Aldactone 50 mg daily. Symptoms are well controlled. Labs from 06/12/2024 showed potassium 4.4, creatinine 0.8. She is due for updated labs, reminded of this. No med changes made. Signs and symptoms of fluid retention reviewed with her. (2) Sleep apnea: Code(s): G47.30 - Sleep apnea, unspecified Category: Medical Plan: Reports of sleep apnea, witnessed. She reports having home sleep study in the past and it did not record data. There is no report in our system. For further evaluation I will order an in-lab sleep study for her. (3) HTN (hypertension): Code(s): I10 - Essential (primary) hypertension Category: Medical Plan: Blood pressure goal less than 130/80. Well controlled at present. No med changes made, continue losartan, Lasix and Aldactone. Low-salt diet reviewed. Plan I discussed with the patient that her intermittent chest pain is likely musculos keletal or nerve-related and not concerning for cardiac issues. We will schedule a repeat sleep study at the hospital due to the inconclusive results of the previous home study. I advised her to continue her current medications as her blood pressure and heart rate are well-controlled. Forwarding my not to PCP. Orders: Orders RT PSG in-lab sleep study Today G47.30 - Sleep apnea, unspecified Patient Instructions: - Continue taking all prescribed medications as directed. - Avoid extra salt in the diet to prevent fluid retention. - Obtain labs in near future - as ordered by PCP - Stay physically active to maintain muscle strength. - Await a call from centralized scheduling for the sleep study appointment. Patient was informed and verbally consented to the use of an ambient scribe for clinic note documentation during this visit. Visit time spent on chart review, interview, assessment, orders, documentation. Coding Level of Care Code Est Pt Level 4 (59272) Complex EM visit Add On G2211 Diagnoses Diastolic dysfunction I51.89 Sleep apnea G47.30 HTN (hypertension) I10 Time Spent (min) 28
--- OUTSIDE RECORDS SUMMARY | 2024-12-19 16:27 | XMS_ITS | Clinical Summary ---
Author Organization [facility] Address [address] [place] [phone] Phone Care Team Providers Care Pipelines Supervisor Name Role Phone Cordelia Diane MD Primary Care Provider [phone] Allergies Active Allergy Reactions Criticality Noted Date Comments Lisinopril-Hydrochlorothiazide Angioedema 11/13 Medications albuterol 2.5 mg /3 mL (0.083 %) nebulizer solution Take 2.5 mg by nebulization every 4 (four) hours as needed. Active amLODIPine (NORVASC) 5 MG tablet Take 5 mg by mouth daily. Active ARIPiprazole (ABILIFY) 2 MG tablet Take 2 mg by mouth daily. Active aspirin 81 MG EC tablet Take 81 mg by mouth daily. Active citalopram (CELEXA) 40 MG tablet Take 40 mg by mouth daily. Active fluticasone propionate (FLOVENT HFA) 110 mcg/actuation inhaler Inhale 1 puff into the lungs 2 (two) times a day. Active albuterol 90 mcg/actuation inhaler Inhale 2 puffs into the lungs every 4 (four) hours as needed for wheezing. Active acetaminophen (TYLENOL) 500 MG tablet Take 1,000 mg by mouth every 4 (four) hours as needed for pain (specific location in comments). Active vitamin A 13548 UNIT capsule Take 10,000 Units by mouth daily. Active cholecalciferol (VITAMIN D3) 10,000 unit tablet Take 10,000 Units by mouth daily. Active vitamin E 200 UNIT capsule Take 200 Units by mouth daily. Active methocarbamoL (ROBAXIN) 750 MG tablet Take 1 tablet (750 mg total) by mouth 4 (four) times a day. 20 tablet Active Social History Tobacco Use Types Packs/Day Years Used Date Smoking Tobacco: Never Assessed Education Answer Date Recorded Are you interested in more education? Not on stella e 06/27/2022 Are you concerned about learning? Not on file 06/27/2022 No 06/27/2022 No 06/27/2022 Digital Access Answer Date Recorded No 07/28/2022 No 07/28/2022 Reliable internet access at home? Not on file 07/28/2022 Device with a working camera? Not on file Comments Unknown Sex and Gender Information Value Date Recorded Sex Assigned at Female 11/13/2020 2:45 PM EDT Legal Sex Female 12:52 PM EDT Gender Identity Female 11/13/2020 2:45 PM EDT Sexual Orientation Not on file Last Filed Vital Signs Vital Sign Reading Time Taken Comments Blood Pressure 130/77 11/13/2020 2:35 PM EDT Pulse 79 11/13/2020 2:35 PM EDT Temperature 36.8 C (98.2 F) 11/13/2020 2:35 PM EDT Respiratory Rate 18 11/13/2020 2:35 PM EDT Oxygen Saturation 97% 11/13/2020 2:35 PM EDT Inhaled Oxygen Concentration - - Weight - - Height - - Body Mass Index - - Plan of Treatment Health Maintenance Due Date Last Done Comments Adult Td,Tdap Booster 1950 LIPID PANEL 1950 DEPRESSION SCREENING 1964 SMOKING Hx and SMOKELESS TOB ACCO SCREENING 02/08/1965 HEPATITIS C SCREENING 02/08/1970 MAMMOGRAM 1992 COLOGUARD 02/08/1997 COLONOSCOPY 02/08/1997 COLORECTAL CANCER SCREENING 02/08/1997 FIT TEST 02/08/1997 FOBT 02/08/1997 SIGMOIDOSCOPY 02/08/1997 VIRTUAL COLONOSCOPY 02/08/1997 PNEUMOCOCCAL VACCINES (50+ y ears) (1 of 1 - PCV) 02/08/2002 ZOSTER VACCINES (1 of 2) 02/08/2002 OSTEOPOROSIS SCREENING INITI AL (ONE-TIME) 02/08/2017 INFLUENZA VACCINE (#1) 2024 COVID-19 VACCINE (2024-2 6 season) 2024 RSV VACCINE (1 - 1-dose 75+ series) 02/08/2027 HEPATITIS A VACCINES Aged Out No long er eligible based on patient's age to complete this topic HIB VACCINES Aged Out No longer eligi ble based on patient's age to complete this topic MENINGOCOCCAL VACCINES (ACWY) Aged Out No longer eligible based on patient's age to complete this topic MENINGOCOCCAL VACCINES (B) Aged Out N o longer eligible based on patient's age to complete this topic Medical Devices Not on file Insurance Member Subscriber Plan / Payer (Ef fective 2019-Present) Name:Rosemarie Hassan Relation to Subscriber:Self Name:Rosemarie Hassan Payer ID:[id number] (NAIC) Group ID:Not on file Type:Medicare Address: [place] [phone] Member Subscriber Plan / Payer (Ef fective 2019-Present) Name:Rosemarie Hassan Relation to Subscriber:Self Name:Rosemarie Hassan Payer ID:[id number] (NAIC) Group ID:Not on file Type:Medicare Address: [place] [id number] [facility] MEDICARE REPLACEMENT MEDICARE REPLACEMENT Member Subscriber Plan / Payer (Ef fective 2019-Present) Name:Rosemarie Hassan Relation to Subscriber:Self Name:Tim Rosemarie Quinn Payer ID:[id number] (NAIC) Group ID:Not on file Type:Medicare Address: [place] [phone] [facility] MEDICARE REPLACEMENT Member Subscriber Plan / Payer (Ef fective 2019-Present) Name:Dumont Dennis Quinnnivida Relation to Subscriber:Self Name:Dumont Dennis Quinnnivida Payer ID:[id number] (NAIC) Group ID:Not on file Type:Medicare Address: [place] [phone] * Guarantor: Rosemarie Hassan Account Type Relation to Patient Date of Phone Billing Address Personal/Family Self 1950 [address] [facility] [address] [place] [id number] [facility] MEDICARE REPLACEMENT Care Teams Pipelines Supervisor Relationship Specialty Start Date End Date Cordelia Diane MD [address] [place] [address] PCP - General Pediatrics 11/13/20 Additional Source Comments The information contained in this document represents components of the legal health record. It is not the complete legal health record.[facility]
--- OUTSIDE RECORDS SUMMARY | 2024-12-19 16:28 | XMS_ITS | Encounter Summary ---
Author Organization [employer] Address [address] [facility] 7 [place] [address] Care Team Providers Care Laser Machine Operator Name Role Phone Cordelia Diane MD Primary Care Provider [phone] Reason for Visit * Reason Comments Med Refill Encounter Details Date Type Department Care Team ([facility] Contact Info) Description 07/13/2024 Refill [facility] MED & PEDS [address] [place], [place] [phone] Cordelia Diane MD [address] [place] [address] Social History Tobacco Use Types Packs/Day Years [...] as of this encounter Plan of Treatment Not on file documented as of this encounter Visit Diagnoses Not on filedocumented in this encounter Additional Health Concerns Assessment Noted Time PHQ-9 Depression Total Score: 15 024 11:25 AM EDT documented as of this encounter Care Teams Laser Machine Operator Relationship Specialty Start Date End Date Cordelia Diane MD [address] [place] [address] PCP - General Family Medicine 11/09/18 documented as of this encounter
--- OUTSIDE RECORDS SUMMARY | 2024-12-19 16:28 | XMS_ITS | Encounter Summary ---
Author Organization [employer] Address [address] [facility] 7 [place] [address] Care Team Providers Care Director Sales Training Name Role Phone Cordelia Diane MD Primary Care Provider [phone] Reason for Visit * Reason Comments Med Refill Encounter Details Date Type Department Care Team ([facility] Contact Info) Description 02/13/2024 Refill [facility] MED & PEDS [address] [place] [address] Didi Dutta MD [address] [place] [address] Pruritus; Dry skin Social History Tobacco Use [...] documented as of this encounter Care Teams Director Sales Training Relationship Specialty Start Date End Date Cordelia Diane MD [address] [place] [phone] PCP - General Family Medicine 11/09/18 documented as of this encounter
--- OUTSIDE RECORDS SUMMARY | 2024-12-19 16:28 | XMS_ITS | Encounter Summary ---
Author Organization [employer] Address [address] [facility] 7t [place] [address] Care Team Providers Care Printed Circuit Layout Taper Name Role Phone Cordelia Diane MD Primary Care Provider [phone] Encounter Details Date Type Department Care Team ([facility] st Contact Info) Description 10/26/2024 Telephone [facility] [address] [place] [address] Cordelia Diane MD [address] [place] [address] Social History Tobacco Use Types Packs/Day Years [...] documented as of this encounter Care Teams Printed Circuit Layout Taper Relationship Specialty Start Date End Date Cordelia Diane MD [address] [place] [address] PCP - General Family Medicine 11/09/18 documented as of this encounter
--- OUTSIDE RECORDS SUMMARY | 2024-12-19 16:28 | XMS_ITS | Encounter Summary ---
Author Organization [employer] Address [address] [place] [address] 7 [place] [address] Care Team Providers Care Patrol Officer Name Role Phone Cordelia Diane MD Primary Care Provider [phone] Encounter Details Date Type Department Care Team (Latest Contact Info) Description 08/28/2021 Abstract [facility] CON[facility] Dental, Provider, DDS Social History Tobacco [...] on filedocumented in this encounter Care Teams Patrol Officer Relationship Specialty Start Date End Date Cordelia Diane MD [address] [place] [address] PCP - General Family Medicine 11/09/18 documented as of this encounter
--- OUTSIDE RECORDS SUMMARY | 2024-12-19 16:28 | XMS_ITS | Encounter Summary ---
Author Organization [employer] Address [address] [facility] 7t [place] [address] Care Team Providers Care Flooring Mechanic Name Role Phone Cordelia Diane MD Primary Care Provider [phone] Encounter Details Date Type Department Care Team ([facility] Contact Info) Description 06/29/2024 Orders Only [facility] MED & PEDS [address] [place], [place] [phone] Cordelia Diane MD [address] [place] [address] Social History Tobacco Use Types Packs/Day Years [...] documented as of this encounter Care Teams Flooring Mechanic Relationship Specialty Start Date End Date Cordelia Diane MD [address] [place] [address] PCP - General Family Medicine 11/09/18 documented as of this encounter
--- OUTSIDE RECORDS SUMMARY | 2024-12-19 16:28 | XMS_ITS | Encounter Summary ---
Author Organization [employer] Address [address] [facility] 7t [place] [address] Care Team Providers Care Sap Director Name Role Phone Cordelia Diane MD Primary Care Provider [phone] Encounter Details Date Type Department Care Team ([facility] st Contact Info) Description 09/03/2022 Orders Only [facility] CHC MED & PEDS [address] [place] [address] Jo Caba LPN Social History Tobacco Use [...] documented as of this encounter Care Teams Sap Director Relationship Specialty Start Date End Date Cordelia Diane MD [address] [place] [phone] PCP - General Family Medicine 11/09/18 documented as of this encounter
--- OUTSIDE RECORDS SUMMARY | 2024-12-19 16:28 | XMS_ITS | Encounter Summary ---
Author Organization [employer] Address [address] [facility] 7 [place] [address] Care Team Providers Care Recruiting Consultant Name Role Phone Cordelia Diane MD Primary Care Provider [phone] Reason for Visit * Reason Onset Date Comments Med Change Request 11/23/2023 Encounter Details Date Type Department Care Team ([facility] Contact Info) Description 11/23/2023 Telephone [facility] MEDICINE [address] [place] [address] Cordelia Diane MD [address] [place] [address] Med Change Request Social History Tobacco Use [...] documented in this encounter Plan of Treatment Not on file documented as of this encounter Visit Diagnoses Not on filedocumented in this encounter Additional Health Concerns Assessment Noted Time PHQ-9 Depression Total Score: 15 024 11:25 AM EDT documented as of this encounter Care Teams Recruiting Consultant Relationship Specialty Start Date End Date Cordelia Diane MD [address] [place] [address] PCP - General Family Medicine 11/09/18 documented as of this encounter
--- OUTSIDE RECORDS SUMMARY | 2024-12-19 16:28 | XMS_ITS | Encounter Summary ---
Author Organization [employer] Address [address] [place] [address] 7 [place] [address] Care Team Providers Care Carbonator Name Role Phone Cordelia Diane MD Primary Care Provider [phone] Encounter Details Date Type Department Care Team (Latest Contact Info) Description 01/03/2019 Abstract C CONVERSIONS Dental, Provider, DDS Social History Tobacco [...] on filedocumented in this encounter Care Teams Carbonator Relationship Specialty Start Date End Date Cordelia Diane MD [address] [place] [address] PCP - General Family Medicine 11/09/18 documented as of this encounter
--- OUTSIDE RECORDS SUMMARY | 2024-12-19 16:28 | XMS_ITS | Encounter Summary ---
Author Organization [employer] Address [address] [place] [address] 7 [place] [address] Care Team Providers Care Barrel Filler Head Name Role Phone Cordelia Diane MD Primary Care Provider [phone] Encounter Details Date Type Department Care Team (Latest Contact Info) Description 12/18/2019 Abstract [facility] CONVERSIONS Dental, Provider, DDS Social [...] on filedocumented in this encounter Care Teams Barrel Filler Head Relationship Specialty Start Date End Date Cordelia Diane MD [address] [place] [address] PCP - General Family Medicine 11/09/18 documented as of this encounter
--- OUTSIDE RECORDS SUMMARY | 2024-12-19 16:28 | XMS_ITS | Clinical Summary ---
Author Organization [employer] Address [address] [place] [address] 7t [place] [address] Care Team Providers Care Agency Owner Name Role Phone Cordelia Diane MD Primary Care Provider [phone] Allergies Active Allergy Reactions Criticality Noted Date [...] TWICE DAILY 60 capsule 3 023 Active acetaminophen (Tylenol 8 Hour) 650 MG ER tablet Take 1 tab orally every 8 hours prn pain 90 tablet 024 Active bacitracin-poly myxin b (Polysporin) ointment Apply topically 2 times daily. 30 g 2 024 Active montelukast (Singulair) 10 MG tabletIndicatio ns:Mild persistent asthma without complication TAKE 1 TABLET BY MOUTH DAILY 90 tablet 3 Active clonazePAM (KlonoPIN) 0.5 MG tablet TAKE 1 TO 2 TABLETS BY MOUTH AT BEDTIME NEEDED FOR SLEEP Active hydrOXYzine HCl (Atarax) 10 MG tabletIndicatio ns:Pruritus,Dry skin TAKE 1 TABLET(10 MG) BY MOUTH AT BEDTIME NEEDED FOR ITCHING 30 tablet 025 Active fluticasone (Flovent HFA) 110 MCG/ACT inhaler INHALE 1 PUFF PO 2 TIMES A DAY 12 g 11 Active cetirizine (ZyrTEC) 10 MG tabletIndicatio ns:Dry skin Take 1 tablet (10 mg) by mouth Once per day. 30 tablet 11 025 2025 Active pyridoxine (Vitamin B-6) 100 MG tablet Take 0.5 tablets (50 mg) by mouth Once per day. 30 tablet 3 Active benzonatate (Tessalon) 100 MG capsule TAKE 1 CAPSULE BY MOUTH NEEDED IN THE MORNING, AT NOON AND AT BEDTIME FOR COUGH FOR 7 DAYS. DO NOT CRUSH OR CHEW 20 capsule 025 Active bacitracin 500 UNIT/GM ointment Apply topically 2 times daily. 28 g 1 025 Active oxybutynin XL (Ditropan-XL) 5 MG 24 hr tablet Take 1 tablet (5 mg) by mouth Once per day. 90 tablet 3 025 Active ergocalciferol (Vitamin D2) 1.25 MG (87572 UT) capsuleIndicati ons:Low vitamin D level Take 1 capsule (1.25 mg) by mouth 1 (one) time per week. 12 capsule 025 Active Aspirin Low Dose 81 MG EC tablet TAKE 1 TABLET BY MOUTH EVERY DAY 90 tablet 3 025 Active losartan (Cozaar) 25 MG tabletIndicatio ns:Primary hypertension TAKE 1 TABLET BY MOUTH EVERY DAY 90 tablet 1 025 Active spironolactone (Aldactone) 50 MG tabletIndicatio ns:Primary hypertension,Hy pokalemia,Edema , lower extremity TAKE 1 TABLET BY MOUTH EVERY DAY 90 tablet 1 025 Active spironolactone (Aldactone) 50 MG tabletIndicatio ns:Primary hypertension,Hy pokalemia,Edema , lower extremity Take 1 tablet (50 mg) by mouth Once per day. 30 tablet 11 024 2024 Discontinued(R eorder (will not trigger notification to Pharmacy)) losartan (Cozaar) 25 MG tabletIndicatio ns:Primary hypertension Take 1 tablet (25 mg) by mouth Once per day. 30 tablet 11 024 2024 Discontinued(R eorder (will not trigger notification to Pharmacy)) Active Problems Problem Noted Date Diagnosed Date [...] 2 years ago. 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 Discussed to go [...] Encounters Date Type Department Care Team Description 11/19/2024 Refill [facility] MED & PEDS [address] [place] [address] Cordelia Diane MD Primary hypertension; Primary hypertension; Hypokalemia; Edema, lower extremity 11/19/2024 Refill [facility] [address] [place] [address] Didi Dutta MD Primary hypertension; Hypokalemia; Edema, lower extremity 10/26/2024 [facility]phone [facility] [address] [place] [phone] Cordelia Diane MD 10/10/2024 Refill [facility] PEDS [address] [place] [address] Cordelia Diane MD 10/05/2024 Results Follow-Up [facility] [address] [place] [address] Louise Douglas RN Vitamin D, 25-Hydroxy, Total, Immunoassay 10/04/2024 Orders Only [facility] [address] [place] [address] Cordelia Diane MD Low vitamin D level (Primary Dx) 10/03/2024 11:30 AM EDT Office Visit [facility] [address] [place] [address] Cordelia Diane MD Low vitamin D level (Primary Dx); Primary hypertension; Depressive disorder 09/22/2024 Refill [facility] [address] [place] [address] Didi Dutta MD Primary hypertension; Hypokalemia; Edema, lower extremity 09/22/2024 Refill [facility] [address] [place] [address] Cordelia Diane MD Primary hypertension from Last 3 Months Immunizations Immunization Administration Dates Next Due Influenza High-dose Quadriva [...] (200 lb) 10/03/2024 10:58 AM EDT Height 167.6 cm (5' 6 ) 06/29/2024 9:25 AM EDT Body Mass Index 32.28 06/29/2024 9:25 AM EDT Plan of Treatment Health Maintenance Due Date Last Done Comments CT Colonography 1950 Colonoscopy 1950 Dental Prophylaxis 1950 Dental X-Ray: Bitewings 1950 Dental X-Ray: Full Mouth 1950 FIT DNA/Cologuard 1950 Sigmoidoscopy 1950 Alcohol/Substance Use Screening 1964 Hepatitis C Screening 02/08/1970 Dental Oral Exam 08/14/2022 02/12/2022 Colorectal Cancer Screening 09/25/2023 FIT 09/25/2023 09/24/2022 FOBT 09/25/2023 09/24/2022 Depression Monitoring 03/11/2024 09/09/2023, 024 COVID-19 Vaccine ( season) 2024 12/31/2021, 02/07/2021, 08/15/2020, Additional history exists Influenza Vaccine (#1) 2024 , 02/11/2023, 11/26/2021, Additional history exists SDOH Screening 06/22/2025 06/22/2024 Tobacco Screening 06/29/2025 06/29/2024 Mammogram 01/24/2026 01/25/2024, 11/30, 12/12/2021, Additional history exists Lipid Panel 05/19/2028 05/20/2023, 09/10/2021 DTaP/Tdap/Td Vaccines (2 - Td or Tdap) 11/29/2033 11/30/2023, 11/20/2011, 03/01/2000 Pneumococcal Vaccine: 50+ Years Completed 12/20/2017, 12/20/2017, 02/01/2007 Zoster Vaccines Completed 01/29/2022, 11/26/2021 RSV Patients and Patients Aged 60 years [...] patient's age to complete this topic Meningococcal B Vaccine Aged Out No l onger eligible based on patient's age to complete [...] 11:49 AM EDT Low vitamin D level BI [...] Recently Relevant to Health Maintenance Results * (ABNORMAL) Vitamin D, 25-Hydroxy, Total, Immunoassay (10/03/2024 11:49 AM EDT) Vitamin D 25-OH Total 19.8(L) >30 ng/mL [facility] Comment: Health Based Reference Values*< 20 ng/mL Zolncklty79-81 ng/mL Insufficient> 30 ng/mL Sufficient*Wiley BRODERICK. N [...] MD LAB BLOOD ORDERABLES Final Re sult [facility] [address] [place] [address] [phone] * BI Mammogram Screening Tomosynthesis Bilateral (01/25/2024 10:30 AM EST) Anatomical Region Laterality Modality Breast Bilateral Mammography 01/25/2024 10:3 0 AM EST Narrative 02/03/2024 12:20 PM EST [facility] [address] [place] [address] Mammography Report Signed Patient: Rosemarie Morelos MR#: [id number] : 1950 Acct:[id number] Age/Sex: 73 / F ADM Date: 01/25/24 Loc: HO.MAMMO Attending Dr: Cordelia Diane MD Ordering Physician: Cordelia Diane MD Results: 1Ne gative Date of Service: 01/25/24 Follow Up: 1 Year From [facility] Mammogram Procedure(s): MM tomosynthesis screening BI Accession Number(s): [id number] cc: Cordelia Diane MD EXAMINATION: MM SCREENING [...] 02/03/24 1218 DD/ 1030 TD/TT: 01/25/24 1045 Chief Of Planning: Procedure Note Donotuseinterpreter, Image - 02/03/2024 [facility] [address] [place], [place] [address] Mammography Report Signed Patient: Rosemarie MorelosMR#: [id number] : 1950cct:[id number] Age/Sex: 73 / FADM Date: 01/25/24 Loc: HO.MAMMO Attending Dr: Cordelia Diane MD Ordering Physician: Cordelia Diane MDResults: 1Ne gative Date of Service: 01/25/24Follow Up: 1 Year From Orig inal Mammogram Procedure(s): MM tomosynthesis screening BI Accession Number(s): [id number] cc: Cordelia Diane MD EXAMINATION: MM SCREENING [...] by: Marisol Hassan DO 02/03/2024 12:18 PM [facility] Dictated By: Marisol Hassan DO Signed By: <Electronically signed by Marisol Hassan DO in OV> 02/03/24 1218 DD/ 1030 TD/TT: 01/25/24 1045 Chief Of Planning: Cordelia Diane MD IMG BI PROCEDURES Edited Resu lt - Final * (ABNORMAL) Lipid Panel, Standard (05/20/2023 10:37 AM EDT) Triglycerides 102 <150 mg/dL [facility] Comment:Desirable Triglyceri de: less than 150 mg/dLBorderline High Triglyceride 150-199 mg/dLHigh Triglyceride: 200-499 mg/dLVery High Triglyceride: greater than or equal to 5OO mg/dL Cholesterol 179 <200 mg/dL [facility] Comment:Desirable Cholestero l: less than 200 mg/dLBorderline High Cholesterol: 200-239 mg/dLHigh Cholesterol: greater than 239 mg/dL LDL Cholesterol Calculated 114(H) <100 mg/dL [facility] Comment:Desirable LDL: less than 100 mg/dLNear Optimal/Above Optimal LDL: 110- 129 mg/dLBorderline High LDL: 130-159 mg/dLHigh LDL: 160-189 mg/dLVery High LDL: greater than or equal to 190 mg/dL HDL Cholesterol 45 >40 mg/dL [facility] Comment:Desirable HDL: great er than 40 mg/dL Note: This HDL assay may give artificially low results in patients with liver disease. Blood Venous blood specimen / Unknown 05/20/2023 10:37 AM EDT 05/20/2023 2:45 PM EDT Cordelia Diane MD LAB BLOOD ORDERABLES Final Re sult [facility] [address] [place] [phone] * HM Fecal Immunochemical Test (09/24/2022) Fecal Immunochemical Test Nonreactive Stool Rectal contents / Unknown 09/24/2022 Narrative Christie Hannon RN - 09/24/2022 See scanned report, Normal FIT test Historical Provider HEALTH MAINTENANCE Final Result from Last 3 Months or Most Recently Relevant to Health Maintenance Insurance [facility] RESIDENTIAL OPTIONS (HMO D-SNP) [place] [id number] [facility] Care Teams Agency Owner Relationship Specialty Start Date End Date Cordelia Diane MD [address] [place] [phone] PCP - General Family Medicine 11/09/18
--- OUTSIDE RECORDS SUMMARY | 2024-12-19 16:28 | XMS_ITS | Encounter Summary ---
Author Organization [employer] Address [address] [facility] 7 [place] [address] Care Team Providers Care Inventory Administrator Name Role Phone Cordelia Diane MD Primary Care Provider [phone] Reason for Visit * Reason Comments Med Refill Encounter Details Date Type Department Care Team ([facility] Contact Info) Description 09/22/2024 Refill [facility] MED & PEDS [address] [place], [place] [phone] Cordelia Diane MD [address] [place] [address] Primary hypertension Social History Tobacco Use Types Packs/Day Years [...] as of this encounter Visit Diagnoses Diagnosis Primary hypertension Unspecified essential hypertension documented in this encounter Additional Health Concerns Assessment Noted Time PHQ-9 Depression Total Score: 15 024 11:25 AM EDT documented as of this encounter Care Teams Inventory Administrator Relationship Specialty Start Date End Date Cordelia Diane MD [address] [place] [phone] PCP - General Family Medicine 11/09/18 documented as of this encounter
--- OUTSIDE RECORDS SUMMARY | 2024-12-19 16:28 | XMS_ITS | Encounter Summary ---
Author Organization [employer] Address [address] 7[address] [place] [address] Care Team Providers Care Victim Witness Administrator Name Role Phone Cordelia Diane MD Primary Care Provider [phone] Encounter Details Date Type Department Care Team ([facility] st Contact Info) Description 2022 Abstract [facility] [address] [place] [address] Dental, Provider, DDS Social History Tobacco Use [...] on file documented as of this encounter Procedures Procedure [...] on filedocumented in this encounter Care Teams Victim Witness Administrator Relationship Specialty Start Date End Date Cordelia Diane MD [address] [place] [address] PCP - General Family Medicine 11/09/18 documented as of this encounter
--- OUTSIDE RECORDS SUMMARY | 2024-12-19 16:28 | XMS_ITS | Encounter Summary ---
Author Organization [employer] Address [address] [place] [address] 7 [place] [address] Care Team Providers Care Salesforce Business Analyst Name Role Phone Cordelia Diane MD Primary Care Provider [phone] Reason for Visit * Reason Comments Med Refill Encounter Details Date Type Department Care Team ([facility] st Contact Info) Description 09/22/2024 Refill [facility] CHC MED & PEDS [address] [place], [place] [phone] Didi Dutta MD [address] [place] [address] Primary hypertension; Hypokalemia; Edema, lower extremity Social History Tobacco Use Types Packs/Day Years [...] Diagnoses Diagnosis Primary hypertension Unspecified essential hypertension Hypokalemia Hypopotassemia Edema, lower extremity documented in this encounter Additional Health Concerns Assessment Noted Time PHQ-9 Depression Total Score: 15 024 11:25 AM EDT documented as of this encounter Care Teams Salesforce Business Analyst Relationship Specialty Start Date End Date Cordelia Diane MD [address] [place] [address] PCP - General Family Medicine 11/09/18 documented as of this encounter
== END 2024-12-19 14:01 | disposition home or self-care (01) ==
LOC: HO.HCS 12:52
PROVIDERS: PCP Pediatrics; Visit Provider Nurse Practitioner Family
DX: I51.89 Other ill-defined heart diseases (principal); G47.30 Sleep apnea, unspecified; I10 Essential (primary) hypertension
CPT/HCPCS: 99214; G2211

== ENCOUNTER → 2024-12-19 12:51 | Outpatient (BNVA) | payer OTHER, SELFPAY | PROVIDERS: PCP Pediatrics; Visit Provider Nurse Practitioner Family | DX: I10 Essential (primary) hypertension (principal); G47.30 Sleep apnea, unspecified; I51.89 Other ill-defined heart diseases | CPT/HCPCS: 99212 ==

== ENCOUNTER → 2025-02-01 20:30 | Outpatient (REF) | payer OTHER, SELFPAY ==
--- OUTSIDE RECORDS SUMMARY | 2024-10-03 10:30 | XMS_ITS | Encounter Summary ---
Author Organization [employer] Address [address] [place] [address] 7 [place] [address] Care Team Providers Care Radio Rigger Name Role Phone Cordelia Diane MD Primary Care Provider Encounter Details Date Type Department Care Team ([facility] st Contact Info) Description 10/03/2024 11:30 AM EDT Office Visit [facility] MED & PEDS [address] [place], [place] [phone] Cordelia Diane MD [address] [place] [address] Low vitamin D level (Primary Dx); Primary hypertension; Depressive disorder; Continuous leakage of urine Social History Tobacco Use Types Packs/Day Years [...] Sign Reading Time Taken Comments Blood Pressure 140/80 10/03/2024 10:58 AM EDT Pulse 57 10/03/2024 10:58 AM EDT Temperature 37.1 C (98.7 F) 10/03/2024 10:58 AM EDT Respiratory Rate 20 10/03/2024 10:58 AM EDT Oxygen Saturation 98% 10/03/2024 10:58 AM EDT Inhaled Oxygen Concentration - - Weight 90.7 kg (200 lb) 10/03/2024 10:58 AM EDT Height - - Body Mass Index 32.28 06/29/2024 9:25 AM EDT documented in this encounter Progress Notes * Cordelia Diane MD - 10/03/2024 11:30 AM EDT Subjective Patient ID: Rosemarie Black is a 74 y.o. female who presents for follow-up. Rosemarie is a 74-year-old female patient of ours with past medical history of chronic asthma, depression followed by psychiatry, hypertension currently stable, deficiency of vitamin D etc. here for follow-up. She had fasting labs drawn after last visit which were reviewed. The only abnormality was a vitamin D level of 5 for which high-dose weekly vitamin D was prescribed for 15 weeks. Patient hascompleted treatment. saw psychiatrist in June due to an exacerbation of her depression. Denies any changes in medications done by psychiatrist Dr. Tate. States lives with her dog and enjoystaking care of him and going for walks. Review of Systems Constitutional: Negative for activity change, chills, fever and unexpected weight change. Respiratory: Negative for cough, shortness of breath and wheezing. Cardiovascular: Negative for chest pain, palpitations and leg swelling. Gastrointestinal: Negative for abdominal pain and blood in stool. Endocrine: Negative for polydipsia and polyuria. Genitourinary: Negative for decreased urine volume, difficulty urinating, dysuria and hematuria. Musculoskeletal: Negative for arthralgias and gait problem. Skin: Negative for color change and rash. Neurological: Negative for dizziness and headaches. Hematological: Negative for adenopathy. Psychiatric/Behavioral: Positive for behavioral problems. Negative for dysphoric mood, hallucinations, sleep disturbance and suicidal ideas. The patient is not nervous/anxious. Objective BP (!) 140/80 (BP Location: Left arm, Patient Position: Sitting, BP Cuff Size: Adult) Pulse 57 Temp 98.7 ??F (37.1 ??C) (Oral) Resp 20 Wt 200 lb (90.7 kg) SpO2 98% BMI 32.28 kg/m?? Physical Exam Constitutional: General: She is not in acute distress. Appearance: Normal appearance. She is not ill-appearing. HENT: Head: Normocephalic. Right Ear: Tympanic membrane and ear canal normal. Left Ear: Tympanic membrane and ear canal normal. Nose: Nose normal. Mouth/Throat: Mouth: Mucous membranes are moist. Pharynx: No oropharyngeal exudate or posterior oropharyngeal erythema. Eyes: Extraocular Movements: Extraocular movements intact. Conjunctiva/sclera: Conjunctivae normal. Pupils: Pupils are equal, round, and reactive to light. Cardiovascular: Rate and Rhythm: Normal rate and regular rhythm. Pulses: Normal pulses. Heart sounds: Normal heart sounds. Pulmonary: Effort: Pulmonary effort is normal. No respiratory distress. Breath sounds: Normal breath sounds. No wheezing. Abdominal: Palpations: Abdomen is soft. Musculoskeletal: General: Normal range of motion. Cervical back: Normal range of motion. Skin: General: Skin is warm. Capillary Refill: Capillary refill takes less than 2 seconds. Neurological: General: No focal deficit present. Mental Status: She is alert and oriented to person, place, and time. Psychiatric: Mood and Affect: Mood normal. Behavior: Behavior normal. Thought Content: Thought content normal. Judgment: Judgment normal. Assessment/Plan Diagnoses and all orders for this visit: Low vitamin D level Comments: Recheck vitamin D level today. Completed high-dose weekly vitamin D treatment. Call with results and prescribe appropriate vitamin D replacement. Orders: - Vitamin D, 25-Hydroxy, Total, Immunoassay; Future Primary hypertension Comments: BP well-controlled on current medications. Continue low-salt diet. Congratulated on her 6 pound weight loss through healthier eating and more walking. Depressive disorder Comments: Patient sees psychiatrist Dr. Tate. Last seen in June. No new med changes per patient. Had 1 depression crisis which has resolved. Follow-up with psych. Other orders - doxycycline (Vibra-Tabs) 100 MG tablet; Take 1 tablet (100 mg) by mouth 2 times daily for 10 days. Take with a full glass of water and do not lie down for at least 30 minutes after. - bacitracin 500 UNIT/GM ointment; Apply topically 2 times daily. - oxybutynin XL (Ditropan-XL) 5 MG 24 hr tablet; Take 1 tablet (5 mg) by mouth Once per day. Mixed urine incontinence: Patient has several episodes of urine incontinence per day and occasionally at night time as well.Needs refills on liners, wipes and gloves . documented in this encounter Plan of Treatment Upcoming Encounters Date Type Department Care Team (Late st Contact Info) Description 02/02/2025 9:45 AM EST Office Visit [facility] MED & PEDS [address] [place] [address] Cordelia Diane MD [address] [place] [address] documented as of this encounter Procedures Procedure Name Priority Date/Time Associated Diagnosis Comments VITAMIN D,25-OH,TOTAL,IA Routine 10/03/2024 11:49 AM EDT Low vitamin D level documented in this encounter Results * (ABNORMAL) Vitamin D, 25-Hydroxy, Total, Immunoassay (10/03/2024 11:49 AM EDT) Vitamin D 25-OH Total 19.8(L) >30 ng/mL [facility] Comment: Health Based Reference Values*< 20 ng/mL Jvyylexmm00-76 ng/mL Insufficient> 30 ng/mL Sufficient*Wiley BRODERICK. N Engl J Med. 2007;357:266-280There is [...] Vitamin D results fromdifferent laboratories and methodologies. Published datademonstrated that results from patients undergoinghemodialysis may show a negative bias when tested withvarious automated 25-OH vitamin D assays when compared toLC-MS/MS.When testing samples from patients whose predominant form ofVitamin D is Vitamin D2, such as patients receiving VitaminD2 supplementation, results that are subtherapeutic shouldbe confirmed with another method such as LC-MS/MS. Blood Venous blood specimen / Unknown 10/03/2024 11:49 AM EDT 10/03/2024 2:13 PM EDT us Cordelia Diane MD LAB BLOOD ORDERABLES Final Re sult [facility] [address] [place] [address] [phone] documented in this encounter Visit Diagnoses Diagnosis Low vitamin D level- Primary Primary hypertension Unspecified essential hypertension Depressive disorder Depressive disorder, not elsewhere classified Continuous leakage of urine Continuous leakage documented in this encounter Additional Health Concerns Assessment Noted Time PHQ-9 Depression Total Score: 15 024 11:25 AM EDT documented as of this encounter Care Teams Radio Rigger Relationship Specialty Start Date End Date Cordelia Diane MD [address] [place] [address] PCP - General Family Medicine 11/09/18 documented as of this encounter
--- OUTSIDE RECORDS SUMMARY | 2025-02-01 22:28 | XMS_ITS | Clinical Summary ---
Author Organization [employer] Address [address] [facility] 7t [place] [address] Care Team Providers Care Supervisor Electronics Assembly Name Role Phone Cordelia Diane MD Primary Care Provider [phone] Allergies Active Allergy Reactions Criticality Noted Date Comments Lisinopril Angioedema High 10/20/2011 Other reaction(s): FACE AND LIP SWELLING Lisinopril-Hydrochlorothiaz keena Angioedema 11/13/2020 Medications lidocaine (Lidoderm) 5 % patch Apply 1 patch topically in the morning. Remove & discard patch within 12 hours or as directed by MD. 30 patch 5 3 Active citalopram (CeleXA) 40 MG tablet Take 1 tablet by mouth in the morning. 1 Active albuterol (2.5 MG/3ML) 0.083% nebulizer solution Take 3 mL by nebulization every 8 (eight) hours if needed for wheezing. 25 mL 3 3 Active albuterol 108 (90 Base) MCG/ACT inhaler INHALE 2 PUFFS BY MOUTH EVERY 4 TO 6 HOURS NEEDED 8.5 g 2 3 Active gabapentin (Neurontin) 300 MG capsule TAKE 1 CAPSULE(300 MG) BY MOUTH TWICE DAILY 60 capsule 3 3 Active acetaminophen (Tylenol 8 Hour) 650 MG ER tablet Take 1 tab orally every 8 hours prn pain 90 tablet 4 Active bacitracin-polym yxin b (Polysporin) ointment Apply topically 2 times daily. 30 g 2 4 Active montelukast (Singulair) 10 MG tabletIndication s:Mild persistent asthma without complication TAKE 1 TABLET BY MOUTH DAILY 90 tablet 3 4 Active clonazePAM (KlonoPIN) 0.5 MG tablet TAKE 1 TO 2 TABLETS BY MOUTH AT BEDTIME NEEDED FOR SLEEP 4 Active hydrOXYzine HCl (Atarax) 10 MG tabletIndication s:Pruritus,Dry skin TAKE 1 TABLET(10 MG) BY MOUTH AT BEDTIME NEEDED FOR ITCHING 30 tablet 5 Active fluticasone (Flovent HFA) 110 MCG/ACT inhaler INHALE 1 PUFF PO 2 TIMES A DAY 12 g 11 5 Active cetirizine (ZyrTEC) 10 MG tabletIndication s:Dry skin Take 1 tablet (10 mg) by mouth Once per day. 30 tablet 11 5 026 Active pyridoxine (Vitamin B-6) 100 MG tablet Take 0.5 tablets (50 mg) by mouth Once per day. 30 tablet 3 5 Active benzonatate (Tessalon) 100 MG capsule TAKE 1 CAPSULE BY MOUTH NEEDED IN THE MORNING, AT NOON AND AT BEDTIME FOR COUGH FOR 7 DAYS. DO NOT CRUSH OR CHEW 20 capsule 5 Active bacitracin 500 UNIT/GM ointment Apply topically 2 times daily. 28 g 1 5 Active oxybutynin XL (Ditropan-XL) 5 MG 24 hr tablet Take 1 tablet (5 mg) by mouth Once per day. 90 tablet 3 5 Active ergocalciferol (Vitamin D2) 1.25 MG (31536 UT) capsuleIndicatio ns:Low vitamin D level Take 1 capsule (1.25 mg) by mouth 1 (one) time per week. 12 capsule 5 Active Aspirin Low Dose 81 MG EC tablet TAKE 1 TABLET BY MOUTH EVERY DAY 90 tablet 3 5 Active losartan (Cozaar) 25 MG tabletIndication s:Primary hypertension TAKE 1 TABLET BY MOUTH EVERY DAY 90 tablet 1 5 Active spironolactone (Aldactone) 50 MG tabletIndication s:Primary hypertension,Hyp okalemia,Edema, lower extremity TAKE 1 TABLET BY MOUTH EVERY DAY 90 tablet 1 5 Active Active Problems Problem Noted Date Diagnosed Date [...] 2 years ago. 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 Discussed to go [...] Type Department Care Team Description 11/19/2024 Refill [facility] & PED[facility] [address] [place] [address] Cordelia Diane MD Primary hypertension; Primary hypertension; Hypokalemia; Edema, lower extremity 11/19/2024 Refill [facility] [address] [place] [address] Didi Dutta MD Primary hypertension; Hypokalemia; Edema, lower extremity from Last 3 Months Immunizations Immunization Administration [...] Description 02/02/2025 9:45 AM EST Office Visit [facility] CHC MED & PEDS [address] [place] [address] Cordelia Diane MD 505 [place] [address] Health Maintenance Due Date Last Done Comments [...] AM EST Narrative 02/03/2024 12:20 PM EST [facility] [address] [place] [address] Mammography Report Signed Patient: Rosemarie Morelos MR#: [id number] : 1950 Acct:[id number] Age/Sex: 73 / F ADM Date: 01/25/24 Loc: HO.MAMMO Attending Dr: Cordelia Diane MD Ordering Physician: Cordelia Diane MD Results: 1Ne gative Date of Service: 01/25/24 Follow Up: 1 Year From Orig inal Mammogram Procedure(s): MM tomosynthesis screening BI Accession Number(s): [id number] cc: Cordelia Diane MD EXAMINATION: MM SCREENING [...] by: Marisol Hassan DO 02/03/2024 12:18 PM [facility] Dictated By: Marisol Hassan DO Signed By: <Electronically signed by Marisol Hassan DO in OV> 02/03/24 1218 DD/ 1030 TD/TT: 01/25/24 1045 Manifold Operator: Procedure Note Donotuseinterpreter, Image - 02/03/2024 [facility] [address] [place] [address] Mammography Report Signed Patient: Rosemarie MorelosMR#: [id number] : 1950cct:[id number] Age/Sex: 73 / FADM Date: 01/25/24 Loc: .MAMMO Attending Dr: Cordelia Diane MD Ordering Physician: Cordelia Diane MDResults: 1Ne gative Date of Service: 01/25/24Follow Up: 1 Year From Orig ina Mammogram Procedure(s): MM tomosynthesis screening BI Accession Number(s): [id number] cc: Cordelia Diane MD EXAMINATION: MM SCREENING [...] by: Marisol Hassan DO 02/03/2024 12:18 PM [facility] Dictated By: Marisol Hassan DO Signed By: <Electronically signed by Marisol Hassan DO in OV> 02/03/24 1218 DD/ 1030 TD/TT: 01/25/24 1045 Manifold Operator: us Cordelia Diane MD IMG BI PROCEDURES Edited Resu lt - Final * (ABNORMAL) Lipid Panel, Standard (05/20/2023 10:37 AM EDT) Triglycerides 102 <150 mg/dL [facility] Comment:Desirable Triglyceri de: less than 150 mg/dLBorderline High Triglyceride 150-199 mg/dLHigh Triglyceride: 200-499 mg/dLVery High Triglyceride: greater than or equal to 5OO mg/dL Cholesterol 179 <200 mg/dL [facility] Comment:Desirable Cholestero l: less than 200 mg/dLBorderline High Cholesterol: 200-239 mg/dLHigh Cholesterol: greater than 239 mg/dL LDL Cholesterol Calculated 114(H) <100 mg/dL [facility] Comment:Desirable LDL: less than 100 mg/dLNear Optimal/Above Optimal LDL: 110- 129 mg/dLBorderline High LDL: 130-159 mg/dLHigh LDL: 160-189 mg/dLVery High LDL: greater than or equal to 190 mg/dL HDL Cholesterol 45 >40 mg/dL [facility] Comment:Desirable HDL: great er than 40 mg/dL Note: This HDL assay may give artificially low results in patients with liver disease. Blood Venous blood specimen / Unknown 05/20/2023 10:37 AM EDT 05/20/2023 2:45 PM EDT Cordelia Diane MD LAB BLOOD ORDERABLES Final Re sult [facility] [address] [place] [phone] [phone] * Fecal Immunochemical Test (09/24/2022) Fecal Immunochemical Test Nonreactive Stool Rectal contents / Unknown 09/24/2022 Narrative Christie Hannon RN - 09/24/2022 See scanned report, Normal FIT test Historical Provider HEALTH MAINTENANCE Final Result from Last 3 Months or Most Recently Relevant to Health Maintenance Insurance [facility] (O D-SNP) KAEL TODD [id number] [facility] Care Teams Supervisor Electronics Assembly Relationship Specialty Start Date End Date Cordelia Diane MD [address] [place] [address] PCP - General Family Medicine 11/09/18
--- OUTSIDE RECORDS SUMMARY | 2025-02-01 22:28 | XMS_ITS | Encounter Summary ---
Author Organization [employer] Address [address] [place] [address] 7 [place] [address] Care Team Providers Care Treasury Consultant Name Role Phone Cordelia Diane MD Primary Care Provider [phone] Reason for Visit * Reason Comments Med Refill Encounter Details Date Type Department Care Team ([facility] st Contact Info) Description 09/22/2024 Refill [facility] CH[facility] MED & PEDS [address] [place], [place] [phone] Didi Dutta MD [address] [place] [address] Primary hypertension; Hypokalemia; Edema, lower extremity Social [...] Description 02/02/2025 9:45 AM EST Office Visit [facility] MED & PEDS [address] [place] [address] Cordelia Diane MD [address] [place] [address] documented as of this encounter Visit Diagnoses Diagnosis Primary hypertension Unspecified essential hypertension Hypokalemia Hypopotassemia Edema, lower extremity documented in this encounter Additional Health Concerns Assessment Noted Time PHQ-9 Depression Total Score: 15 024 11:25 AM EDT documented as of this encounter Care Teams Treasury Consultant Relationship Specialty Start Date End Date Cordelia Diane MD [address] [place] [address] PCP - General Family Medicine 11/09/18 documented as of this encounter
--- OUTSIDE RECORDS SUMMARY | 2025-02-01 22:28 | XMS_ITS | Encounter Summary ---
Author Organization [employer] Address [address] [facility] 7 [place] [address] Care Team Providers Care Security Guards Dispatcher Name Role Phone Cordelia Diane MD Primary Care Provider [phone] Reason for Visit * Reason Comments Med Refill Encounter Details Date Type Department Care Team ([facility] Contact Info) Description 07/13/2024 Refill [facility] MED & PEDS [address] [place], [place] [phone] Cordelia Diane MD [address] [place] [address] Social History Tobacco Use Types Packs/Day Years [...] Upcoming Encounters Date Type Department Care Team ([facility] st Contact Info) Description 02/02/2025 9:45 AM EST Office Visit [facility] MED & PEDS [address] [place] [address] Cordelia Diane MD [address] [place] [address] documented as of this encounter Visit Diagnoses Not on filedocumented in this encounter Additional Health Concerns Assessment Noted Time PHQ-9 Depression Total Score: 15 024 11:25 AM EDT documented as of this encounter Care Teams Security Guards Dispatcher Relationship Specialty Start Date End Date Cordelia Diane MD [address] [place] [address] PCP - General Family Medicine 11/09/18 documented as of this encounter
--- OUTSIDE RECORDS SUMMARY | 2025-02-01 22:28 | XMS_ITS | Encounter Summary ---
Author Organization [employer] Address [address] [place] [address] 7 [place] [address] Care Team Providers Care Roof Designer Name Role Phone Cordelia Diane MD Primary Care Provider [phone] Encounter Details Date Type Department Care Team ([facility] Contact Info) Description 09/03/2022 Orders Only [facility] MED & PEDS [address] [place] [address] Jo Caba LPN Social History Tobacco Use [...] Upcoming Encounters Date Type Department Care Team ([facility] Contact Info) Description 02/02/2025 9:45 AM EST Office Visit [facility] MED & PEDS [address] [place] [address] Cordelia Diane MD [address] [place] [address] documented as of this encounter Visit Diagnoses Not on filedocumented in this encounter Additional Health Concerns Assessment Noted Time PHQ-9 Depression Total Score: 1 05/30/19 23 9:53 AM EDT documented as of this encounter Care Teams Roof Designer Relationship Specialty Start Date End Date Cordelia Diane MD [address] [place] [address] PCP - General Family Medicine 11/09/18 documented as of this encounter
--- OUTSIDE RECORDS SUMMARY | 2025-02-01 22:28 | XMS_ITS | Encounter Summary ---
Author Organization [employer] Address [address] [place] [address] 7 [place] [address] Care Team Providers Care Forest Ecologist Name Role Phone Cordelia Diane MD Primary Care Provider [phone] Encounter Details Date Type Department Care Team (Latest Contact Info) Description 08/28/2021 Abstract [facility] CONVERSIONS Dental, Provider, DDS Social [...] Description 02/02/2025 9:45 AM EST Office Visit [facility] CHC MED & PEDS [address] [place] [address] Cordelia Diane MD [address] [place] [address] documented as of this encounter Visit Diagnoses Not on filedocumented in this encounter Care Teams Forest Ecologist Relationship Specialty Start Date End Date Cordelia Diane MD [address] [place] [address] PCP - General Family Medicine 11/09/18 documented as of this encounter
--- OUTSIDE RECORDS SUMMARY | 2025-02-01 22:28 | XMS_ITS | Encounter Summary ---
Author Organization [employer] Address [address] [facility] 7t [place] [address] Care Team Providers Care Research Intern Name Role Phone Cordelia Diane MD Primary Care Provider [phone] Encounter Details Date Type Department Care Team ([facility] Contact Info) Description 06/29/2024 Orders Only [facility] CHC MED & PEDS [address] [place], [place] [phone] Cordelia Diane MD [address] [place] [address] Social History Tobacco Use Types Packs/Day Years [...] Upcoming Encounters Date Type Department Care Team ([facility] st Contact Info) Description 02/02/2025 9:45 AM EST [facility] [address] [place] [address] Cordelia Diane MD [address] [place] [address] documented as of this encounter Visit Diagnoses Not on filedocumented in this encounter Additional Health Concerns Assessment Noted Time PHQ-9 Depression Total Score: 15 024 11:25 AM EDT documented as of this encounter Care Teams Research Intern Relationship Specialty Start Date End Date Cordelia Diane MD [address] [place] [address] PCP - General Family Medicine 11/09/18 documented as of this encounter
--- OUTSIDE RECORDS SUMMARY | 2025-02-01 22:28 | XMS_ITS | Clinical Summary ---
Author Organization [facility] Address [address] [place] [address] Phone Care Team Providers Care Switchboard Manager Name Role Phone Cordelia Diane MD Primary Care Provider [phone] Allergies Active Allergy Reactions Criticality Noted Date [...] (specific location in comments). Active vitamin A 17405 UNIT capsule Take 10,000 Units by mouth [...] (NAIC) Group ID:Not on file Type:Medicare Address: [place] [id number] Member Subscriber Plan / Payer (Ef fective 2019-Present) Name:Rosemarie Hassan Relation to Subscriber:Self Name:Rosemarie Hassan Payer ID:[id number] (NAIC) Group ID:Not on file Type:Medicare Address: [place] [id number] [facility] MEDICARE REPLACEMENT MEDICARE REPLACEMENT Member Subscriber Plan / Payer (Ef fective 2019-Present) Name:Rosemarie Hassan Relation to Subscriber:Self Name:Tim Rosemarie Quinn Payer ID:[id number] (NAIC) Group ID:Not on file Type:Medicare Address: [place] [id number] [facility] MEDICARE REPLACEMENT Member Subscriber Plan / Payer (Ef fective 2019-Present) Name:Dumont Dennis Quinnnivida Relation to Subscriber:Self Name:Dumont Dennis Quinnnivida Payer ID:[id number] (NAIC) Group ID:Not on file Type:Medicare Address: [place] [id number] [facility] MEDICARE REPLACEMENT Care Teams Switchboard Manager Relationship Specialty Start Date End Date Cordelia Diane MD [address] [place] [address] PCP - General Pediatrics 11/13/20 Additional Source Comments The information contained in this document represents components of the legal health record. It is not the complete legal health record.[facility]
--- OUTSIDE RECORDS SUMMARY | 2025-02-01 22:28 | XMS_ITS | Encounter Summary ---
Author Organization [employer] Address [address] [facility] 7 [place] [address] Care Team Providers Care Supervisor Rolling Room Name Role Phone Cordelia Diane MD Primary Care Provider [phone] Reason for Visit * Reason Comments Med Refill Encounter Details Date Type Department Care Team ([facility] Contact Info) Description 09/22/2024 Refill [facility] CHC MED & PEDS [address] [place], [place] [phone] Cordelia Diane MD [address] [place] [address] Primary hypertension Social History Tobacco Use Types [...] Description 02/02/2025 9:45 AM EST Office Visit [facility] CHC MED & PEDS [address] [place] [address] Cordelia Diane MD [address] [place] [address] documented as of this encounter Visit Diagnoses Diagnosis Primary hypertension Unspecified essential hypertension documented in this encounter Additional Health Concerns Assessment Noted Time PHQ-9 Depression Total Score: 15 024 11:25 AM EDT documented as of this encounter Care Teams Supervisor Rolling Room Relationship Specialty Start Date End Date Cordelia Diane MD [address] [place] [address] PCP - General Family Medicine 11/09/18 documented as of this encounter
--- OUTSIDE RECORDS SUMMARY | 2025-02-01 22:28 | XMS_ITS | Encounter Summary ---
Author Organization [employer] Address [address] [place] [address] 7 [place] [address] Care Team Providers Care Pressing Machine Tender Name Role Phone Cordelia Diane MD Primary Care Provider [phone] Encounter Details Date Type Department Care Team (Latest Contact Info) Description 12/18/2019 Abstract [facility] CONVERSIONS Dental, Provider, DDS Social History [...] Description 02/02/2025 9:45 AM EST Office Visit [facility] CHC MED & PEDS [address] [place] [address] Cordelia Diane MD [address] [place] [address] documented as of this encounter Visit Diagnoses Not on filedocumented in this encounter Care Teams Pressing Machine Tender Relationship Specialty Start Date End Date Cordelia Diane MD [address] [place] [address] PCP - General Family Medicine 11/09/18 documented as of this encounter
--- OUTSIDE RECORDS SUMMARY | 2025-02-01 22:28 | XMS_ITS | Encounter Summary ---
Author Organization [employer] Address [address] [place] [address] 7 [place] [address] Care Team Providers Care Engine Mechanic Name Role Phone Cordelia Diane MD Primary Care Provider Encounter Details Date Type Department Care Team (Latest Contact Info) Description 01/03/2019 Abstract [facility] CONVERSIONS Dental, Provider, DDS Social History Tobacco [...] 9:45 AM EST Office Visit [facility] CHC MED & PEDS [address] [place] [address] Cordelia Diane MD [address] [place] [address] documented as of this encounter Visit Diagnoses Not on filedocumented in this encounter Care Teams Engine Mechanic Relationship Specialty Start Date End Date Cordelia Diane MD [address] [place] [address] PCP - General Family Medicine 11/09/18 documented as of this encounter
--- OUTSIDE RECORDS SUMMARY | 2025-02-01 22:28 | XMS_ITS | Encounter Summary ---
Author Organization [employer] Address [address] [place] [address] 7 [place] [address] Care Team Providers Care Steam Drier Operator Name Role Phone Cordelia Diane MD Primary Care Provider Encounter Details Date Type Department Care Team ([facility] Contact Info) Description 2022 Abstract [facility]ULT [facility] [address] [place], [place] [phone] Dental, Provider, DDS Social History Tobacco Use [...] Upcoming Encounters Date Type Department Care Team ([facility] Contact Info) Description 02/02/2025 9:45 AM EST Office Visit [facility] MED & PEDS [address] [place], [place] [phone] Cordelia Diane MD [address] [place] [address] documented as of this encounter Procedures Procedure [...] on filedocumented in this encounter Care Teams Steam Drier Operator Relationship Specialty Start Date End Date Cordelia Diane MD [address] [place] [address] PCP - General Family Medicine 11/09/18 documented as of this encounter
--- OUTSIDE RECORDS SUMMARY | 2025-02-01 22:28 | XMS_ITS | Encounter Summary ---
Author Organization [employer] Address [address] [facility] 7 [place] [address] Care Team Providers Care Tire Maintenance Technician Name Role Phone Cordelia Diane MD Primary Care Provider [phone] Reason for Visit * Reason Onset Date Comments Med Change Request 11/23/2023 Encounter Details Date Type Department Care Team ([facility] Contact Info) Description 11/23/2023 Telephone [facility] MEDICINE [address] [place] [address] Cordelia Diane MD [address] [place] [address] Med Change Request Social History Tobacco Use [...] Description 02/02/2025 9:45 AM EST Office Visit [facility] CHC MED & PEDS [address] [place] [address] Cordelia Diane MD [address] [place] [address] documented as of this encounter Visit Diagnoses Not on filedocumented in this encounter Additional Health Concerns Assessment Noted Time PHQ-9 Depression Total Score: 15 024 11:25 AM EDT documented as of this encounter Care Teams Tire Maintenance Technician Relationship Specialty Start Date End Date Cordelia Diane MD [address] [place] [address] PCP - General Family Medicine 11/09/18 documented as of this encounter
--- OUTSIDE RECORDS SUMMARY | 2025-02-01 22:28 | XMS_ITS | Encounter Summary ---
Author Organization [employer] Address [address] [facility] 7 [place] [address] Care Team Providers Care Bark Spudder Name Role Phone Cordelia Diane MD Primary Care Provider [phone] Reason for Visit * Reason Comments Med Refill Encounter Details Date Type Department Care Team ([facility] Contact Info) Description 02/13/2024 Refill [facility] CHC MED & PEDS [address] [place] [address] Didi Dutta MD [address] [place] [address] Pruritus; Dry skin Social History Tobacco Use [...] Description 02/02/2025 9:45 AM EST Office Visit [facility] MED & PEDS [address] [place] [address] Cordelia Diane MD [address] [place] [address] documented as of this encounter Visit Diagnoses Diagnosis Pruritus Unspecified pruritic disorder Dry skin Other symptoms involving skin and integumentary tissues documented in this encounter Additional Health Concerns Assessment Noted Time PHQ-9 Depression Total Score: 15 024 11:25 AM EDT documented as of this encounter Care Teams Bark Spudder Relationship Specialty Start Date End Date Cordelia Diane MD [address] [place] [address] PCP - General Family Medicine 11/09/18 documented as of this encounter
== END ==
LOC: HO.SL 20:30
PROVIDERS: PCP Pediatrics; Visit Provider Nurse Practitioner Family
DX: G47.33 Obstructive sleep apnea (adult) (pediatric) (principal); G47.61 Periodic limb movement disorder
CPT/HCPCS: 95810

== ENCOUNTER → 2025-02-01 20:59 | Outpatient (BNV) | payer OTHER, SELFPAY | PROVIDERS: PCP Pediatrics; Visit Provider Internal Medicine | DX: G47.33 Obstructive sleep apnea (adult) (pediatric) (principal); G47.61 Periodic limb movement disorder | CPT/HCPCS: 95810 ==

== ENCOUNTER 2025-02-02 10:14 | Outpatient (REF) | payer OTHER, SELFPAY | END 2025-02-02 10:15 | disposition home or self-care (01) | LOC: HO.CHCLDS 10:14 | PROVIDERS: Visit Provider Pediatrics | DX: R79.89 Other specified abnormal findings of blood chemistry (principal) | CPT/HCPCS: 36415; 82306 ==